=== PATIENT | female | born 1945 | race Caucasian/White ===

== ENCOUNTER 2018-12-30 13:33 | Emergency (ER) | payer OTHER ==
[~2018-12-30] VITALS: Ht 167.6 cm; Wt 72.6 kg
[2018-12-30] MEDS ORDERED: SODIUM CHLORIDE 0.9% 1,000 ML IV ONE (13:41)
[2018-12-30 14:36] LABS: Basophils # (auto) 0.1 uL; Basophils % (auto) 0.7 % (0.0-2.0); Eosinophils # (auto) 0 uL; Eosinophils % (auto) 0.3 % (0.0-7.0); Hematocrit 40.3 % (36.0-46.0); Hemoglobin 13.3 g/dL (12.2-16.2); Lymphocytes # (auto) 0.9 uL; Lymphocytes % (auto) 7.5 % (10.0-50.0); Mean Corpuscular Hemoglobin 27.3 pg (28.0-32.0); Mean Corpuscular Hgb Conc. 32.9 g/dL (32.0-36.0); Mean Corpuscular Volume 82.8 fL (80.0-100.0); Monocytes # (auto) 0.4 uL; Monocytes % (auto) 3.6 % (0.0-12.0); Neutrophils # (auto) 10.4 uL; Neutrophils % (auto) 87.9 % (37.0-80.0); Platelet Count (auto) 210 10^3/uL (140-450); Red Blood Cells 4.87 10^6/uL (4.0-5.20); White Blood Cell 11.8 10^3/uL (4.4-10.8)
[2018-12-30 14:38] LABS: Alanine Aminotransferase 32 U/L (13-56); Albumin 3.7 g/dL (3.4-5.0); Anion Gap 8 (5-15); Aspartate Aminotransferase 27 U/L (15-37); Blood Urea Nitrogen 12 mg/dL (7-18); Calcium 9.6 mg/dL (8.5-10.1); Carbon Dioxide 24 mmol/L (21-32); Chloride 106 mmol/L (98-107); GFR African American 83 mL/min; GFR Non-African American 69 mL/min; Glucose 130 mg/dL (74-106); Potassium 3.8 mmol/L (3.5-5.1); Sodium 138 mmol/L (136-145)
[2018-12-30 14:42] LABS: Partial Thromboplastin Time 23.7 sec (23.64-32.05)
[2018-12-30 14:43] LABS: Alkaline Phosphatase 96 U/L (45-117); Bilirubin, Total 0.4 mg/dL (0.2-1.0); Total Protein 7.1 g/dL (6.4-8.2)
[2018-12-30 15:59] LABS: Urine Amorphous Crystal FEW /hpf (None Seen); Urine Bacteria NONE SEEN /hpf (None Seen); Urine Blood Negative /uL (Negative); Urine Specific Gravity 1.008 (1.001-1.035); Urine WBC 1 /hpf (0 - 5)
[2018-12-30 18:00] VITALS: BP 139/75
== END 2018-12-30 18:08 | disposition home or self-care (01) ==
LOC: EDBD 13:33 → ER 13:38
DX: S52.592A Other fractures of lower end of left radius, initial encounter for closed fracture (principal); I10 Essential (primary) hypertension; R42 Dizziness and giddiness; W19.XXXA Unspecified fall, initial encounter; Y93.89 Activity, other specified; Y92.89 Other specified places as the place of occurrence of the external cause; Y99.8 Other external cause status
CPT/HCPCS: 29125; 36415; 70450; 71045; 72125; 72170; 73110; 80053; 81001; 82962; 84484; 85025; 85610; 85730; 96360; 99284; J7030

== ENCOUNTER 2021-01-28 06:07 | Inpatient (IN) | payer OTHER ==
[~2021-01-28] VITALS: Ht 160 cm; Wt 80.0 kg
[~2021-01-28 06:07] MED LIST: AMLO-483 PO; CHOL20007 OR; LEVO25TA6 PO; LOVA20TA4 PO; MULT-1018 OR
[2021-01-28] MEDS ORDERED: ceFAZolin 1GM/50ML 100 ML IV ONE (07:02)
[2021-01-28] MEDS ORDERED: ROCURONIUM 10MG/ML 10ML VIAL IV ONE (07:14)
[2021-01-28] MEDS ORDERED: FAMOTIDINE (10MG/ML) 2ML VL IV ONE (07:14)
[2021-01-28] MEDS ORDERED: SUCCINYLCHOLINE CHLORIDE 20 MG/ML 10ML VIAL IV ONE (07:14)
[2021-01-28] MEDS ORDERED: MIDAZOLAM HCL 2MG/2ML 2ml VIAL (1mg/ml) ONE (07:17)
[2021-01-28] MEDS ORDERED: fentaNYL CITRATE 100 MCG/2 ML VL ONE ×2 (07:17→09:55)
[2021-01-28] MEDS ORDERED: ONDANSETRON HCL 4 MG/2 ML VIAL ONE (07:17)
[2021-01-28] MEDS ORDERED: HYDROmorphone HCL 2 MG/ML VL ONE (07:17)
[2021-01-28] MEDS ORDERED: PROPOFOL 10 MG/ML 20 ML IV ONE (07:17)
[2021-01-28] MEDS ORDERED: LIDOCAINE 2% (LOCAL ANESTH.) PF 5ml SDV ONE (07:17)
[2021-01-28] MEDS ORDERED: GLYCOPYRROLATE 0.2 MG/ML 1ML VIAL ONE (07:17)
[2021-01-28] MEDS ORDERED: DexAMETHasone SOD PHOS 10MG/1ML VIAL INJ ONE (07:17)
[2021-01-28] MEDS ORDERED: KETOROLAC TROMETH 30 MG/ML 1ML VIAL ONE (07:17)
[2021-01-28] MEDS ORDERED: ePHEDrine SULFATE 50 MG/ML AMP ONE (07:18)
[2021-01-28] MEDS ORDERED: PHENYLEPHRINE HCL 10 MG/ML VL ONE (07:18)
[2021-01-28] MEDS ORDERED: METHYLENE BLUE 0.5% 5MG/ML 10ml AMP IV ONE (07:24)
[2021-01-28] MEDS ORDERED: LIDOCAINE 1%-Mpf/Epinephrine 1:200,000 ONE (07:24)
[2021-01-28] MEDS ORDERED: BUPIVACAINE 0.25% INJ 50ML VIAL ONE (07:24)
[2021-01-28] MEDS ORDERED: NITROGLYCERIN 0.4 MG SL TAB SL PRN (08:00)
[2021-01-28] MEDS ORDERED: ceFAZolin 1GM/50ML 50 ML IV ONE (08:00)
[2021-01-28] MEDS ORDERED: MORPHINE SULFATE INJECTION 2 MG/ML SYRG IV PRN (08:00)
[2021-01-28] MEDS ORDERED: GELATIN 1 SPONGE SIZE 100 TOP ONE (10:06)
[2021-01-28] MEDS ORDERED: ONDANSETRON HCL 4 MG/2 ML VIAL IV PRN (11:15)
[2021-01-28] MEDS ORDERED: HYDROmorphone HCL 2 MG/ML VL IV PRN (11:15)
[2021-01-28 20:00] VITALS: BP 129/65
[2021-01-28] MEDS: HYDROcodone-ACET 5/325MG TAB PO PRN (20:11)
[2021-01-28] MEDS: ONDANSETRON HCL 4 MG/2 ML VIAL IV PRN (22:35)
[2021-01-29] MEDS ORDERED: AMLO-489 PO (01:56)
[2021-01-29] MEDS ORDERED: LEVO100T8 PO (01:56)
[2021-01-29] MEDS ORDERED: HYDR-4902 PO (01:56)
[2021-01-29 05:00] VITALS: BP 135/72
[2021-01-29] MEDS: MORPHINE SULFATE 4 MG/ML SYR/VIAL IV PRN ×2 (05:28→08:50)
[2021-01-29] MEDS: ACETAMINOPHEN 500 MG TAB PO PRN (05:50)
[2021-01-29 05:57] LABS: Basophils # (auto) 0 10 ^3/uL (0-0.2); Basophils % (auto) 0.1 % (0.0-2.0); Eosinophils # (auto) 0 10 ^3/uL (0-0.8); Hematocrit 41.3 % (36.0-46.0); Hemoglobin 13.5 g/dL (12.2-16.2); Lymphocytes # (auto) 1.1 10 ^3/uL (0.4-5.4); Lymphocytes % (auto) 9.5 % (10.0-50.0); Mean Corpuscular Hemoglobin 28.5 pg (28.0-32.0); Mean Corpuscular Hgb Conc. 32.8 g/dL (32.0-36.0); Monocytes # (auto) 0.6 10 ^3/uL (0-1.3); Monocytes % (auto) 5.6 % (0.0-12.0); Neutrophils # (auto) 9.6 10 ^3/uL (1.6-8.6); Neutrophils % (auto) 84.8 % (37.0-80.0); Red Blood Cells 4.75 10^6/uL (4.0-5.20); Red Cell Distribution Width 15.1 % (11.8-14.3); White Blood Cell 11.4 10^3/uL (4.4-10.8)
[2021-01-29] MEDS: ONDANSETRON HCL 4 MG/2 ML VIAL IV PRN (08:50)
[2021-01-29] MEDS: SODIUM CHLORIDE 0.9% 1,000 ML IV SCH ×3 (08:52→16:00)
[2021-01-29 09:00] VITALS: BP 154/80
[2021-01-29 13:00] VITALS: BP 153/93
[2021-01-29 17:00] VITALS: BP 142/93
[2021-01-29 22:00] VITALS: BP 144/81
[2021-01-30] MEDS: MORPHINE SULFATE 4 MG/ML SYR/VIAL IV PRN ×3 (03:20→21:29)
[2021-01-30 05:00] VITALS: BP 146/84
[2021-01-30 09:00] VITALS: BP 129/86
[2021-01-30] MEDS ORDERED: LACTULOSE 20Gm/30ML SOLN PO ONE (12:45)
[2021-01-30 13:00] VITALS: BP 134/84
[2021-01-30] MEDS: SODIUM CHLORIDE 0.9% 1,000 ML IV SCH ×3 (13:50→22:45)
[2021-01-30] MEDS: ONDANSETRON HCL 4 MG/2 ML VIAL IV PRN ×2 (16:30→21:30)
[2021-01-30 17:00] VITALS: BP 141/95
[2021-01-30 22:00] VITALS: BP 139/96
[2021-01-30] MEDS: SIMETHICONE 80 MG CHEWABLE TABLET PO SCH (22:43)
[2021-01-30] MEDS: KETOROLAC TROMETH 30 MG/ML 1ML VIAL IV PRN (22:44)
[2021-01-30] MEDS: ENOXAPARIN SOD 100 MG/1 ML SYRINGE SC SCH (23:48)
[2021-01-31 05:00] VITALS: BP 127/88
[2021-01-31] MEDS: MORPHINE SULFATE 4 MG/ML SYR/VIAL IV PRN (05:12)
[2021-01-31] MEDS: ONDANSETRON HCL 4 MG/2 ML VIAL IV PRN (05:12)
[2021-01-31 05:33] LABS: Basophils # (auto) 0 10 ^3/uL (0-0.2); Basophils % (auto) 0.1 % (0.0-2.0); Eosinophils # (auto) 0 10 ^3/uL (0-0.8); Hematocrit 39.6 % (36.0-46.0); Hemoglobin 13.3 g/dL (12.2-16.2); Lymphocytes # (auto) 0.8 10 ^3/uL (0.4-5.4); Lymphocytes % (auto) 6.2 % (10.0-50.0); Mean Corpuscular Hemoglobin 28.8 pg (28.0-32.0); Mean Corpuscular Hgb Conc. 33.6 g/dL (32.0-36.0); Mean Corpuscular Volume 85.8 fL (80.0-100.0); Monocytes # (auto) 0.8 10 ^3/uL (0-1.3); Monocytes % (auto) 6.4 % (0.0-12.0); Neutrophils # (auto) 10.9 10 ^3/uL (1.6-8.6); Neutrophils % (auto) 87.3 % (37.0-80.0); Nucleated Red Blood Cells % 0.1 %; Red Blood Cells 4.62 10^6/uL (4.0-5.20); Red Cell Distribution Width 15.6 % (11.8-14.3); White Blood Cell 12.5 10^3/uL (4.4-10.8)
[2021-01-31] MEDS: SIMETHICONE 80 MG CHEWABLE TABLET PO SCH ×3 (05:39→20:48)
[2021-01-31 06:01] LABS: Potassium 4.4 mmol/L (3.5-5.1)
[2021-01-31 06:08] LABS: BUN/Creatinine Ratio 24.9; Calcium 9.5 mg/dL (8.5-10.1)
[2021-01-31 09:00] VITALS: BP 141/87
[2021-01-31] MEDS: KETOROLAC TROMETH 30 MG/ML 1ML VIAL IV PRN (10:30)
[2021-01-31] MEDS: ENOXAPARIN SOD 100 MG/1 ML SYRINGE SC SCH ×2 (11:19→20:48)
[2021-01-31] MEDS: SODIUM CHLORIDE 0.9% 1,000 ML IV SCH ×2 (11:19→16:17)
[2021-01-31] MEDS ORDERED: PANTOPRAZOLE 40 MG/10 ML VIAL INJ IV ONE (12:00)
[2021-01-31 13:00] VITALS: BP 137/92
[2021-01-31] MEDS: METOCLOPRAMIDE HCL 5MG/ml INJ 2ml VIAL IV SCH ×4 (13:44→23:29)
[2021-01-31] MEDS: BETHANECHOL CHLORIDE 25 MG TAB PO SCH ×3 (16:17→23:20)
[2021-01-31 17:00] VITALS: BP 142/82
[2021-01-31] MEDS: TAMSULOSIN HYDROCHLORIDE 0.4 MG CAP PO SCH (19:01)
[2021-01-31 22:00] VITALS: BP 137/82
[2021-02-01 05:00] VITALS: BP 141/79
[2021-02-01] MEDS: BETHANECHOL CHLORIDE 25 MG TAB PO SCH ×4 (05:43→23:51)
[2021-02-01] MEDS: SIMETHICONE 80 MG CHEWABLE TABLET PO SCH ×3 (05:43→21:39)
[2021-02-01] MEDS: METOCLOPRAMIDE HCL 5MG/ml INJ 2ml VIAL IV SCH ×4 (05:43→23:51)
[2021-02-01 05:56] LABS: Basophils # (auto) 0 10 ^3/uL (0-0.2); Basophils % (auto) 0.1 % (0.0-2.0); Eosinophils # (auto) 0 10 ^3/uL (0-0.8); Hematocrit 35.2 % (36.0-46.0); Hemoglobin 11.9 g/dL (12.2-16.2); Lymphocytes # (auto) 0.5 10 ^3/uL (0.4-5.4); Lymphocytes % (auto) 5.8 % (10.0-50.0); Mean Corpuscular Hgb Conc. 33.9 g/dL (32.0-36.0); Mean Corpuscular Volume 85.5 fL (80.0-100.0); Monocytes # (auto) 0.7 10 ^3/uL (0-1.3); Monocytes % (auto) 8.9 % (0.0-12.0); Neutrophils % (auto) 85.2 % (37.0-80.0); Nucleated Red Blood Cells % 0.1 %; Red Blood Cells 4.11 10^6/uL (4.0-5.20); Red Cell Distribution Width 15.8 % (11.8-14.3); White Blood Cell 8.3 10^3/uL (4.4-10.8)
[2021-02-01 06:47] LABS: Calcium 8.5 mg/dL (8.5-10.1); Potassium 3.9 mmol/L (3.5-5.1)
[2021-02-01 08:44] VITALS: BP 142/76
[2021-02-01] MEDS ORDERED: IOHEXOL 300 MG/ML 100ML BOTTLE IJ ONE (09:07)
[2021-02-01] MEDS: cefTRIAXone 1GM/50ML D5W 50 ML IV SCH (10:38)
[2021-02-01] MEDS: PANTOPRAZOLE 40 MG/10 ML VIAL INJ IV SCH (10:38)
[2021-02-01] MEDS: ENOXAPARIN SOD 100 MG/1 ML SYRINGE SC SCH ×2 (10:39→21:39)
[2021-02-01] MEDS: SODIUM CHLORIDE 0.9% 1,000 ML IV SCH ×3 (10:44→18:19)
[2021-02-01 13:00] VITALS: BP 142/142
[2021-02-01] MEDS ORDERED: LIDOCAINE 2%HCL (LOCAL ANESTH.) INJ 20ML MDV ONE ×2 (14:07→16:15)
[2021-02-01] MEDS ORDERED: IOHEXOL 350 MG/ML 100ML IJ ONE (14:07)
[2021-02-01] MEDS: KETOROLAC TROMETH 30 MG/ML 1ML VIAL IV PRN (15:05)
[2021-02-01 16:20] LABS: INR 0.99 (0.9-1.15); Partial Thromboplastin Time 29.6 sec (23.6-33.0)
[2021-02-01] MEDS ORDERED: fentaNYL CITRATE 100 MCG/2 ML VL ONE (16:32)
[2021-02-01] MEDS ORDERED: MIDAZOLAM HCL 2MG/2ML 2ml VIAL (1mg/ml) ONE (16:32)
[2021-02-01] MEDS ORDERED: diphenhdrAMINE HCL 50 MG/1 ML VL ONE (16:45)
[2021-02-01] MEDS: TAMSULOSIN HYDROCHLORIDE 0.4 MG CAP PO SCH (18:20)
[2021-02-01 22:00] VITALS: BP 134/77
[2021-02-02 05:00] VITALS: BP 144/85
[2021-02-02 05:21] LABS: Basophils # (auto) 0 10 ^3/uL (0-0.2); Basophils % (auto) 0.1 % (0.0-2.0); Eosinophils # (auto) 0 10 ^3/uL (0-0.8); Eosinophils % (auto) 0.1 % (0.0-7.0); Hematocrit 33.6 % (36.0-46.0); Hemoglobin 11.3 g/dL (12.2-16.2); Lymphocytes # (auto) 0.6 10 ^3/uL (0.4-5.4); Lymphocytes % (auto) 9.4 % (10.0-50.0); Mean Corpuscular Hemoglobin 28.8 pg (28.0-32.0); Mean Corpuscular Hgb Conc. 33.6 g/dL (32.0-36.0); Mean Corpuscular Volume 85.8 fL (80.0-100.0); Monocytes # (auto) 0.6 10 ^3/uL (0-1.3); Monocytes % (auto) 9.7 % (0.0-12.0); Neutrophils # (auto) 4.8 10 ^3/uL (1.6-8.6); Neutrophils % (auto) 80.7 % (37.0-80.0); Nucleated Red Blood Cells % 0.1 %; Red Blood Cells 3.92 10^6/uL (4.0-5.20); Red Cell Distribution Width 15.7 % (11.8-14.3); White Blood Cell 5.9 10^3/uL (4.4-10.8)
[2021-02-02] MEDS: METOCLOPRAMIDE HCL 5MG/ml INJ 2ml VIAL IV SCH ×3 (05:28→18:02)
[2021-02-02] MEDS: BETHANECHOL CHLORIDE 25 MG TAB PO SCH ×3 (05:29→18:00)
[2021-02-02] MEDS: KETOROLAC TROMETH 30 MG/ML 1ML VIAL IV PRN (05:29)
[2021-02-02] MEDS: SIMETHICONE 80 MG CHEWABLE TABLET PO SCH ×3 (05:29→21:29)
[2021-02-02 05:37] LABS: Calcium 8.6 mg/dL (8.5-10.1); Potassium 3.3 mmol/L (3.5-5.1)
[2021-02-02 05:40] LABS: BUN/Creatinine Ratio 37.1
[2021-02-02] MEDS: SODIUM CHLORIDE 0.9% 1,000 ML IV SCH ×2 (05:41→08:00)
[2021-02-02 08:59] VITALS: BP 141/81
[2021-02-02] MEDS: PANTOPRAZOLE 40 MG/10 ML VIAL INJ IV SCH (09:28)
[2021-02-02] MEDS: ENOXAPARIN SOD 100 MG/1 ML SYRINGE SC SCH ×2 (09:28→21:29)
[2021-02-02] MEDS: cefTRIAXone 1GM/50ML D5W 50 ML IV SCH (09:28)
[2021-02-02 12:39] VITALS: BP 156/84
[2021-02-02] MEDS: D5W/SOD CHL 0.45%/KCL 20MEQ 1,000 ML IV SCH (15:20)
[2021-02-02 16:33] VITALS: BP 147/71
[2021-02-02] MEDS: TAMSULOSIN HYDROCHLORIDE 0.4 MG CAP PO SCH (18:02)
[2021-02-02] MEDS: MORPHINE SULFATE 4 MG/ML SYR/VIAL IV PRN (21:30)
[2021-02-02] MEDS: ONDANSETRON HCL 4 MG/2 ML VIAL IV PRN (21:30)
[2021-02-02 22:00] VITALS: BP 158/67
[2021-02-03] MEDS: METOCLOPRAMIDE HCL 5MG/ml INJ 2ml VIAL IV SCH ×4 (00:04→17:58)
[2021-02-03] MEDS: BETHANECHOL CHLORIDE 25 MG TAB PO SCH ×3 (00:04→22:50)
[2021-02-03 05:00] VITALS: BP 147/77
[2021-02-03] MEDS: SIMETHICONE 80 MG CHEWABLE TABLET PO SCH ×3 (05:47→22:49)
[2021-02-03] MEDS: KETOROLAC TROMETH 30 MG/ML 1ML VIAL IV PRN (05:47)
[2021-02-03 05:52] LABS: Basophils # (auto) 0 10 ^3/uL (0-0.2); Basophils % (auto) 0.2 % (0.0-2.0); Eosinophils # (auto) 0 10 ^3/uL (0-0.8); Eosinophils % (auto) 0.2 % (0.0-7.0); Hematocrit 33.4 % (36.0-46.0); Hemoglobin 11.1 g/dL (12.2-16.2); Lymphocytes # (auto) 0.6 10 ^3/uL (0.4-5.4); Lymphocytes % (auto) 5.2 % (10.0-50.0); Mean Corpuscular Hemoglobin 28.3 pg (28.0-32.0); Mean Corpuscular Hgb Conc. 33.3 g/dL (32.0-36.0); Mean Corpuscular Volume 85.1 fL (80.0-100.0); Monocytes # (auto) 1.1 10 ^3/uL (0-1.3); Monocytes % (auto) 9.8 % (0.0-12.0); Neutrophils # (auto) 9.5 10 ^3/uL (1.6-8.6); Neutrophils % (auto) 84.6 % (37.0-80.0); Red Blood Cells 3.92 10^6/uL (4.0-5.20); Red Cell Distribution Width 15.8 % (11.8-14.3); White Blood Cell 11.3 10^3/uL (4.4-10.8)
[2021-02-03] MEDS: D5W/SOD CHL 0.45%/KCL 20MEQ 1,000 ML IV SCH ×2 (06:06→17:10)
[2021-02-03 06:16] LABS: Calcium 8.7 mg/dL (8.5-10.1)
[2021-02-03 06:17] LABS: INR 1.04 (0.9-1.15); Partial Thromboplastin Time 28.3 sec (23.6-33.0)
[2021-02-03 06:19] LABS: BUN/Creatinine Ratio 24.6
[2021-02-03 09:00] VITALS: BP 129/76
[2021-02-03] MEDS: PANTOPRAZOLE 40 MG/10 ML VIAL INJ IV SCH (09:08)
[2021-02-03] MEDS: cefTRIAXone 1GM/50ML D5W 50 ML IV SCH (09:08)
[2021-02-03] MEDS ORDERED: BISACODYL 10 MG RECT SUPP PR ONE (10:00)
[2021-02-03] MEDS: ENOXAPARIN SOD 100 MG/1 ML SYRINGE SC SCH ×2 (10:00→22:00)
[2021-02-03] MEDS ORDERED: POTASSIUM CHLORIDE 40 MEQ, LIDOCAINE 1% (LOCAL ANESTH.) 4 ML in SODIUM CHL 0.9% 250 ML IV ONE (10:15)
[2021-02-03] MEDS: MAGNESIUM SULFATE 1GM/100ML 100 ML IV SCH ×2 (12:25→14:54)
[2021-02-03 12:56] VITALS: BP 148/94
[2021-02-03 17:00] VITALS: BP 147/75
[2021-02-03] MEDS: TAMSULOSIN HYDROCHLORIDE 0.4 MG CAP PO SCH (17:58)
[2021-02-03 18:44] LABS: Hematocrit 36.5 % (36.0-46.0); Hemoglobin 11.4 g/dL (12.2-16.2)
[2021-02-03] MEDS: LACTULOSE 20Gm/30ML SOLN PO PRN (20:39)
[2021-02-03 22:00] VITALS: BP 146/68
[2021-02-04] MEDS: METOCLOPRAMIDE HCL 5MG/ml INJ 2ml VIAL IV SCH ×3 (00:16→12:00)
[2021-02-04] MEDS: D5W/SOD CHL 0.45%/KCL 20MEQ 1,000 ML IV SCH (03:48)
[2021-02-04 05:00] VITALS: BP 136/75
[2021-02-04 05:38] LABS: Hematocrit 33.4 % (36.0-46.0)
[2021-02-04] MEDS: SIMETHICONE 80 MG CHEWABLE TABLET PO SCH ×3 (06:00→22:48)
[2021-02-04 06:03] LABS: Calcium 8.7 mg/dL (8.5-10.1); Magnesium 2.6 mg/dL (1.6-2.6); Potassium 3.1 mmol/L (3.5-5.1)
[2021-02-04 06:06] LABS: BUN/Creatinine Ratio 21.5
[2021-02-04] MEDS: LACTULOSE 20Gm/30ML SOLN PO PRN (07:01)
[2021-02-04 08:30] VITALS: BP 153/76
[2021-02-04] MEDS ORDERED: FUROSEMIDE 20 MG/2 ML VIAL IV ONE (10:15)
[2021-02-04] MEDS: cefTRIAXone 1GM/50ML D5W 50 ML IV SCH (10:33)
[2021-02-04] MEDS: PANTOPRAZOLE 40 MG/10 ML VIAL INJ IV SCH (10:34)
[2021-02-04] MEDS: BETHANECHOL CHLORIDE 25 MG TAB PO SCH (10:35)
[2021-02-04] MEDS: ENOXAPARIN SOD 100 MG/1 ML SYRINGE SC SCH (10:36)
[2021-02-04] MEDS ORDERED: IOHEXOL 350 MG/ML 100ML IJ ONE (11:13)
[2021-02-04] MEDS: POTASSIUM CHL 20MEQ/100ML 100 ML IV SCH ×2 (12:00→12:15)
[2021-02-04 12:30] VITALS: BP 146/70
[2021-02-04 17:00] VITALS: BP 144/70
[2021-02-04] MEDS: ALBUTEROL SULF 2.5 MG/0.5ML(0.5%) NEB SOLN NEB SCH (19:00)
[2021-02-04] MEDS: IPRATROPIUM BROM 0.5 MG/2.5ML INH SOL NEB SCH (19:00)
[2021-02-04 22:00] VITALS: BP 143/75
[2021-02-04] MEDS: ENOXAPARIN SOD 80 MG/0.8ML SYRINGE SC SCH (22:48)
[2021-02-05] MEDS: ACETAMINOPHEN 500 MG TAB PO PRN (03:53)
[2021-02-05 05:21] LABS: Basophils # (auto) 0 10 ^3/uL (0-0.2); Eosinophils # (auto) 0 10 ^3/uL (0-0.8); Hemoglobin 9.8 g/dL (12.2-16.2); Lymphocytes # (auto) 0.6 10 ^3/uL (0.4-5.4); Mean Corpuscular Hemoglobin 28.3 pg (28.0-32.0); Mean Corpuscular Hgb Conc. 33.7 g/dL (32.0-36.0); Monocytes # (auto) 0.4 10 ^3/uL (0-1.3); Monocytes % (auto) 1.9 % (0.0-12.0); Neutrophils # (auto) 18.9 10 ^3/uL (1.6-8.6); Neutrophils % (auto) 95.1 % (37.0-80.0); Nucleated Red Blood Cells % 0.1 %; Red Blood Cells 3.46 10^6/uL (4.0-5.20); Red Cell Distribution Width 16.1 % (11.8-14.3); White Blood Cell 19.9 10^3/uL (4.4-10.8)
[2021-02-05 05:26] VITALS: BP 113/61
[2021-02-05 05:39] LABS: BUN/Creatinine Ratio 19.7; Calcium 8.4 mg/dL (8.5-10.1)
[2021-02-05] MEDS: ALBUTEROL SULF 2.5 MG/0.5ML(0.5%) NEB SOLN NEB SCH ×4 (06:00→19:16)
[2021-02-05] MEDS: IPRATROPIUM BROM 0.5 MG/2.5ML INH SOL NEB SCH ×4 (06:00→19:16)
[2021-02-05] MEDS ORDERED: IPRATROPIUM BROM 0.5 MG/2.5ML INH SOL ONE (06:03)
[2021-02-05] MEDS ORDERED: ALBUTEROL SULF 2.5 MG/0.5ML(0.5%) NEB SOLN ONE (06:03)
[2021-02-05] MEDS: LEVOTHYROXINE SODIUM 100 MCG TAB PO SCH (06:08)
[2021-02-05] MEDS: SIMETHICONE 80 MG CHEWABLE TABLET PO SCH ×2 (06:08→14:07)
[2021-02-05 08:00] VITALS: BP 131/74
[2021-02-05] MEDS ORDERED: POTASSIUM CHL 20 Meq TABLET PO ONE (09:30)
[2021-02-05] MEDS: cefTRIAXone 1GM/50ML D5W 50 ML IV SCH (09:38)
[2021-02-05] MEDS: ENOXAPARIN SOD 80 MG/0.8ML SYRINGE SC SCH ×2 (09:38→21:28)
[2021-02-05] MEDS: PANTOPRAZOLE 40 MG TAB PO SCH (09:40)
[2021-02-05 12:00] VITALS: BP 118/73
[2021-02-05 17:26] VITALS: BP 126/69
[2021-02-05 22:00] VITALS: BP 139/76
[2021-02-05] MEDS: PIPERACILLIN-TAZOB 3.375GM 100 ML IV SCH (23:49)
[2021-02-06 05:00] VITALS: BP 110/60
[2021-02-06] MEDS: ACETAMINOPHEN 500 MG TAB PO PRN (05:01)
[2021-02-06] MEDS ORDERED: IPRATROPIUM BROM 0.5 MG/2.5ML INH SOL ONE ×2 (05:41→18:13)
[2021-02-06] MEDS ORDERED: ALBUTEROL SULF 2.5 MG/0.5ML(0.5%) NEB SOLN ONE ×2 (05:41→18:13)
[2021-02-06] MEDS: LEVOTHYROXINE SODIUM 100 MCG TAB PO SCH (05:50)
[2021-02-06] MEDS: PIPERACILLIN-TAZOB 3.375GM 100 ML IV SCH ×3 (05:50→18:55)
[2021-02-06 06:00] LABS: Basophils # (auto) 0 10 ^3/uL (0-0.2); Basophils % (auto) 0.1 % (0.0-2.0); Eosinophils # (auto) 0 10 ^3/uL (0-0.8); Hematocrit 29.9 % (36.0-46.0); Hemoglobin 9.9 g/dL (12.2-16.2); Lymphocytes # (auto) 0.5 10 ^3/uL (0.4-5.4); Lymphocytes % (auto) 3.9 % (10.0-50.0); Mean Corpuscular Hgb Conc. 33.2 g/dL (32.0-36.0); Mean Corpuscular Volume 84.4 fL (80.0-100.0); Monocytes # (auto) 0.2 10 ^3/uL (0-1.3); Monocytes % (auto) 1.8 % (0.0-12.0); Neutrophils # (auto) 13.1 10 ^3/uL (1.6-8.6); Neutrophils % (auto) 94.2 % (37.0-80.0); Red Blood Cells 3.55 10^6/uL (4.0-5.20); Red Cell Distribution Width 16.6 % (11.8-14.3); White Blood Cell 13.9 10^3/uL (4.4-10.8)
[2021-02-06] MEDS: IPRATROPIUM BROM 0.5 MG/2.5ML INH SOL NEB SCH ×3 (06:09→18:16)
[2021-02-06] MEDS: ALBUTEROL SULF 2.5 MG/0.5ML(0.5%) NEB SOLN NEB SCH ×3 (06:09→18:16)
[2021-02-06 06:10] LABS: Albumin 1.7 g/dL (3.4-5.0); Calcium 8.3 mg/dL (8.5-10.1); Potassium 3.2 mmol/L (3.5-5.1)
[2021-02-06 06:16] LABS: BUN/Creatinine Ratio 18.6; Bilirubin, Total 0.8 mg/dL (0.2-1.0); Total Protein 5.9 g/dL (6.4-8.2)
[2021-02-06 06:20] LABS: INR 1.13 (0.9-1.15); Partial Thromboplastin Time 28.7 sec (23.6-33.0)
[2021-02-06] MEDS: ENOXAPARIN SOD 60 MG/0.6 ML SYRINGE SC SCH ×2 (08:51→21:09)
[2021-02-06] MEDS: PANTOPRAZOLE 40 MG TAB PO SCH (08:53)
[2021-02-06 09:00] VITALS: BP 110/64
[2021-02-06] MEDS ORDERED: OMNIPAQUE ORAL SOLN 500ml 12mg/ml PO ONE (09:29)
[2021-02-06] MEDS ORDERED: POTASSIUM CHL 20MEQ/100ML 100 ML IV ONE (10:30)
[2021-02-06] MEDS ORDERED: POTASSIUM CHL 20 Meq TABLET PO ONE (10:30)
[2021-02-06] MEDS ORDERED: IOHEXOL 300 MG/ML 100ML BOTTLE IJ ONE (12:33)
[2021-02-06 13:00] VITALS: BP 133/77
[2021-02-06 16:36] VITALS: BP 143/77
[2021-02-07] MEDS: PIPERACILLIN-TAZOB 3.375GM 100 ML IV SCH ×4 (00:10→18:22)
[2021-02-07] MEDS: MORPHINE SULFATE 4 MG/ML SYR/VIAL IV PRN (04:42)
[2021-02-07 05:00] VITALS: BP 143/87
[2021-02-07] MEDS: LEVOTHYROXINE SODIUM 100 MCG TAB PO SCH (05:30)
[2021-02-07 05:56] LABS: Basophils # (auto) 0 10 ^3/uL (0-0.2); Basophils % (auto) 0.1 % (0.0-2.0); Eosinophils # (auto) 0 10 ^3/uL (0-0.8); Eosinophils % (auto) 0.1 % (0.0-7.0); Hematocrit 29.1 % (36.0-46.0); Hemoglobin 9.9 g/dL (12.2-16.2); Lymphocytes # (auto) 0.4 10 ^3/uL (0.4-5.4); Lymphocytes % (auto) 3.4 % (10.0-50.0); Mean Corpuscular Hemoglobin 28.1 pg (28.0-32.0); Mean Corpuscular Hgb Conc. 33.9 g/dL (32.0-36.0); Mean Corpuscular Volume 82.9 fL (80.0-100.0); Monocytes # (auto) 0.2 10 ^3/uL (0-1.3); Monocytes % (auto) 1.5 % (0.0-12.0); Neutrophils # (auto) 11.4 10 ^3/uL (1.6-8.6); Neutrophils % (auto) 94.9 % (37.0-80.0); Red Blood Cells 3.51 10^6/uL (4.0-5.20); Red Cell Distribution Width 16.5 % (11.8-14.3)
[2021-02-07 06:28] LABS: Calcium 8.3 mg/dL (8.5-10.1); Potassium 3.3 mmol/L (3.5-5.1)
[2021-02-07 06:30] LABS: BUN/Creatinine Ratio 17.5
[2021-02-07] MEDS: IPRATROPIUM BROM 0.5 MG/2.5ML INH SOL NEB SCH ×3 (07:45→19:15)
[2021-02-07] MEDS: ALBUTEROL SULF 2.5 MG/0.5ML(0.5%) NEB SOLN NEB SCH ×3 (07:45→19:15)
[2021-02-07] MEDS ORDERED: LIDOCAINE 2%HCL (LOCAL ANESTH.) INJ 20ML MDV ONE ×2 (08:49→10:22)
[2021-02-07] MEDS: ENOXAPARIN SOD 60 MG/0.6 ML SYRINGE SC SCH ×2 (08:57→21:14)
[2021-02-07] MEDS: PANTOPRAZOLE 40 MG TAB PO SCH (08:59)
[2021-02-07 09:00] VITALS: BP 122/76
[2021-02-07] MEDS ORDERED: fentaNYL CITRATE 100 MCG/2 ML VL ONE (09:45)
[2021-02-07] MEDS ORDERED: MIDAZOLAM HCL 2MG/2ML 2ml VIAL (1mg/ml) ONE (09:45)
[2021-02-07 13:00] VITALS: BP 124/75
[2021-02-07] MEDS ORDERED: POTASSIUM CHL 20MEQ/100ML 100 ML IV SCH (14:00)
[2021-02-07 16:41] VITALS: BP 143/72
[2021-02-07] MEDS ORDERED: ALBUTEROL SULF 2.5 MG/0.5ML(0.5%) NEB SOLN ONE (18:31)
[2021-02-07] MEDS ORDERED: IPRATROPIUM BROM 0.5 MG/2.5ML INH SOL ONE (18:31)
[2021-02-07] MEDS: POTASSIUM CHL 20MEQ/100ML 100 ML IV SCH ×2 (20:01→22:48)
[2021-02-07 22:00] VITALS: BP 133/69
[2021-02-08 05:11] VITALS: BP 136/70
[2021-02-08 05:35] LABS: Basophils # (auto) 0 10 ^3/uL (0-0.2); Eosinophils # (auto) 0 10 ^3/uL (0-0.8); Eosinophils % (auto) 0.1 % (0.0-7.0); Hematocrit 29.8 % (36.0-46.0); Lymphocytes # (auto) 0.4 10 ^3/uL (0.4-5.4); Lymphocytes % (auto) 4.3 % (10.0-50.0); Mean Corpuscular Hgb Conc. 33.4 g/dL (32.0-36.0); Mean Corpuscular Volume 83.8 fL (80.0-100.0); Monocytes # (auto) 0.2 10 ^3/uL (0-1.3); Monocytes % (auto) 2.7 % (0.0-12.0); Neutrophils # (auto) 8.2 10 ^3/uL (1.6-8.6); Neutrophils % (auto) 92.9 % (37.0-80.0); Red Blood Cells 3.56 10^6/uL (4.0-5.20); Red Cell Distribution Width 16.7 % (11.8-14.3); White Blood Cell 8.9 10^3/uL (4.4-10.8)
[2021-02-08] MEDS: ALBUTEROL SULF 2.5 MG/0.5ML(0.5%) NEB SOLN ONE ×2 (05:58→06:24)
[2021-02-08] MEDS: IPRATROPIUM BROM 0.5 MG/2.5ML INH SOL ONE ×2 (05:58→06:23)
[2021-02-08] MEDS: PIPERACILLIN-TAZOB 3.375GM 100 ML IV SCH ×4 (06:13→17:56)
[2021-02-08] MEDS: LEVOTHYROXINE SODIUM 100 MCG TAB PO SCH (06:23)
[2021-02-08 06:28] LABS: Calcium 8.7 mg/dL (8.5-10.1); Potassium 3.6 mmol/L (3.5-5.1)
[2021-02-08] MEDS: ALBUTEROL SULF 2.5 MG/0.5ML(0.5%) NEB SOLN NEB SCH ×3 (06:29→18:45)
[2021-02-08] MEDS: IPRATROPIUM BROM 0.5 MG/2.5ML INH SOL NEB SCH ×3 (06:29→18:45)
[2021-02-08 09:00] VITALS: BP 137/80
[2021-02-08 10:02] VITALS: BP 136/70
[2021-02-08] MEDS: ENOXAPARIN SOD 60 MG/0.6 ML SYRINGE SC SCH ×2 (10:06→22:00)
[2021-02-08] MEDS: PANTOPRAZOLE 40 MG TAB PO SCH (10:06)
[2021-02-08] MEDS: NYSTATIN TOPICAL POWDER 15GM TOP SCH ×2 (10:07→22:00)
[2021-02-08 13:00] VITALS: BP 133/77
[2021-02-08 17:00] VITALS: BP 137/73
[2021-02-08] MEDS ORDERED: IPRATROPIUM BROM 0.5 MG/2.5ML INH SOL ONE (18:30)
[2021-02-08] MEDS ORDERED: ALBUTEROL SULF 2.5 MG/0.5ML(0.5%) NEB SOLN ONE (18:30)
[2021-02-08 22:00] VITALS: BP 132/68
[2021-02-09] MEDS: PIPERACILLIN-TAZOB 3.375GM 100 ML IV SCH ×4 (00:36→18:31)
[2021-02-09 05:00] VITALS: BP 145/74
[2021-02-09 05:39] LABS: Basophils # (auto) 0 10 ^3/uL (0-0.2); Basophils % (auto) 0.5 % (0.0-2.0); Eosinophils # (auto) 0 10 ^3/uL (0-0.8); Eosinophils % (auto) 0.1 % (0.0-7.0); Hematocrit 29.2 % (36.0-46.0); Hemoglobin 9.9 g/dL (12.2-16.2); Lymphocytes # (auto) 0.5 10 ^3/uL (0.4-5.4); Lymphocytes % (auto) 5.6 % (10.0-50.0); Mean Corpuscular Hemoglobin 28.2 pg (28.0-32.0); Mean Corpuscular Hgb Conc. 33.9 g/dL (32.0-36.0); Mean Corpuscular Volume 83.1 fL (80.0-100.0); Monocytes # (auto) 0.4 10 ^3/uL (0-1.3); Monocytes % (auto) 4.2 % (0.0-12.0); Neutrophils # (auto) 7.5 10 ^3/uL (1.6-8.6); Neutrophils % (auto) 89.6 % (37.0-80.0); Red Blood Cells 3.51 10^6/uL (4.0-5.20); Red Cell Distribution Width 16.7 % (11.8-14.3); White Blood Cell 8.4 10^3/uL (4.4-10.8)
[2021-02-09] MEDS: LEVOTHYROXINE SODIUM 100 MCG TAB PO SCH (05:57)
[2021-02-09 06:02] LABS: Potassium 3.2 mmol/L (3.5-5.1)
[2021-02-09 06:11] LABS: Calcium 8.2 mg/dL (8.5-10.1)
[2021-02-09] MEDS: ALBUTEROL SULF 2.5 MG/0.5ML(0.5%) NEB SOLN NEB SCH ×3 (07:55→18:56)
[2021-02-09] MEDS: IPRATROPIUM BROM 0.5 MG/2.5ML INH SOL NEB SCH ×3 (07:55→18:56)
[2021-02-09 09:00] VITALS: BP 121/63
[2021-02-09] MEDS: ENOXAPARIN SOD 60 MG/0.6 ML SYRINGE SC SCH ×2 (09:50→22:58)
[2021-02-09] MEDS: NYSTATIN TOPICAL POWDER 15GM TOP SCH ×3 (09:50→22:59)
[2021-02-09] MEDS: POTASSIUM CHL 20 Meq TABLET PO SCH ×2 (09:51→22:58)
[2021-02-09] MEDS: PANTOPRAZOLE 40 MG TAB PO SCH (09:51)
[2021-02-09 12:04] VITALS: BP 129/74
[2021-02-09] MEDS ORDERED: POTASSIUM CHLORIDE 40 MEQ, LIDOCAINE 1% (LOCAL ANESTH.) 4 ML in SODIUM CHL 0.9% 250 ML IV ONE (14:30)
[2021-02-09 17:13] VITALS: BP 148/96
[2021-02-09] MEDS ORDERED: ALBUTEROL SULF 2.5 MG/0.5ML(0.5%) NEB SOLN ONE (18:40)
[2021-02-09] MEDS ORDERED: IPRATROPIUM BROM 0.5 MG/2.5ML INH SOL ONE (18:40)
[2021-02-09 22:00] VITALS: BP 111/72
[2021-02-10] MEDS: PIPERACILLIN-TAZOB 3.375GM 100 ML IV SCH ×4 (00:25→18:00)
[2021-02-10 05:00] VITALS: BP 151/81
[2021-02-10] MEDS ORDERED: ALBUTEROL SULF 2.5 MG/0.5ML(0.5%) NEB SOLN ONE ×3 (05:13→18:03)
[2021-02-10] MEDS: IPRATROPIUM BROM 0.5 MG/2.5ML INH SOL NEB SCH ×3 (05:17→18:14)
[2021-02-10] MEDS: ALBUTEROL SULF 2.5 MG/0.5ML(0.5%) NEB SOLN NEB SCH ×3 (05:17→18:15)
[2021-02-10] MEDS: LEVOTHYROXINE SODIUM 100 MCG TAB PO SCH (06:34)
[2021-02-10 07:09] LABS: Potassium 3.2 mmol/L (3.5-5.1)
[2021-02-10 07:19] LABS: BUN/Creatinine Ratio 11.5; Calcium 8.6 mg/dL (8.5-10.1)
[2021-02-10 07:21] LABS: Basophils # (auto) 0 10 ^3/uL (0-0.2); Basophils % (auto) 0.4 % (0.0-2.0); Eosinophils # (auto) 0 10 ^3/uL (0-0.8); Hematocrit 33.3 % (36.0-46.0); Hemoglobin 10.8 g/dL (12.2-16.2); Lymphocytes # (auto) 0.7 10 ^3/uL (0.4-5.4); Mean Corpuscular Hemoglobin 27.3 pg (28.0-32.0); Mean Corpuscular Hgb Conc. 32.4 g/dL (32.0-36.0); Mean Corpuscular Volume 84.1 fL (80.0-100.0); Monocytes # (auto) 0.3 10 ^3/uL (0-1.3); Monocytes % (auto) 3.4 % (0.0-12.0); Neutrophils # (auto) 7.5 10 ^3/uL (1.6-8.6); Neutrophils % (auto) 88.2 % (37.0-80.0); Nucleated Red Blood Cells % 0.2 %; Red Blood Cells 3.95 10^6/uL (4.0-5.20); Red Cell Distribution Width 16.6 % (11.8-14.3); White Blood Cell 8.5 10^3/uL (4.4-10.8)
[2021-02-10 09:00] VITALS: BP 145/88
[2021-02-10] MEDS: PANTOPRAZOLE 40 MG TAB PO SCH (10:54)
[2021-02-10] MEDS: ENOXAPARIN SOD 60 MG/0.6 ML SYRINGE SC SCH ×2 (10:54→23:00)
[2021-02-10] MEDS ORDERED: IPRATROPIUM BROM 0.5 MG/2.5ML INH SOL ONE ×2 (11:12→18:03)
[2021-02-10] MEDS: ACETAMINOPHEN 500 MG TAB PO PRN (11:33)
[2021-02-10] MEDS ORDERED: POTASSIUM CHLORIDE 40 MEQ, LIDOCAINE 1% (LOCAL ANESTH.) 4 ML in SODIUM CHL 0.9% 250 ML IV ONE (12:30)
[2021-02-10 13:00] VITALS: BP 135/68
[2021-02-10 17:00] VITALS: BP 123/70
[2021-02-10 22:00] VITALS: BP 137/86
[2021-02-10] MEDS: POTASSIUM CHL 20 Meq TABLET PO SCH (23:00)
[2021-02-10] MEDS: NYSTATIN TOPICAL POWDER 15GM TOP SCH (23:01)
[2021-02-11] MEDS: PIPERACILLIN-TAZOB 3.375GM 100 ML IV SCH ×5 (00:30→23:57)
[2021-02-11 05:00] VITALS: BP 139/76
[2021-02-11] MEDS ORDERED: IPRATROPIUM BROM 0.5 MG/2.5ML INH SOL ONE (05:36)
[2021-02-11] MEDS ORDERED: ALBUTEROL SULF 2.5 MG/0.5ML(0.5%) NEB SOLN ONE (05:37)
[2021-02-11 05:41] LABS: BUN/Creatinine Ratio 10.8; Calcium 8.2 mg/dL (8.5-10.1); Magnesium 2.2 mg/dL (1.6-2.6); Potassium 3.6 mmol/L (3.5-5.1)
[2021-02-11] MEDS: ALBUTEROL SULF 2.5 MG/0.5ML(0.5%) NEB SOLN NEB SCH ×3 (05:50→19:37)
[2021-02-11] MEDS: IPRATROPIUM BROM 0.5 MG/2.5ML INH SOL NEB SCH ×3 (05:50→19:37)
[2021-02-11] MEDS: LEVOTHYROXINE SODIUM 100 MCG TAB PO SCH (06:55)
[2021-02-11 07:07] LABS: Basophils # (auto) 0 10 ^3/uL (0-0.2); Basophils % (auto) 0.5 % (0.0-2.0); Eosinophils # (auto) 0 10 ^3/uL (0-0.8); Eosinophils % (auto) 0.1 % (0.0-7.0); Hematocrit 29.6 % (36.0-46.0); Hemoglobin 9.9 g/dL (12.2-16.2); Lymphocytes # (auto) 0.7 10 ^3/uL (0.4-5.4); Lymphocytes % (auto) 8.7 % (10.0-50.0); Mean Corpuscular Hemoglobin 28.2 pg (28.0-32.0); Mean Corpuscular Hgb Conc. 33.3 g/dL (32.0-36.0); Mean Corpuscular Volume 84.5 fL (80.0-100.0); Monocytes # (auto) 0.3 10 ^3/uL (0-1.3); Monocytes % (auto) 4.2 % (0.0-12.0); Neutrophils # (auto) 6.5 10 ^3/uL (1.6-8.6); Neutrophils % (auto) 86.5 % (37.0-80.0); Nucleated Red Blood Cells % 0.1 %; Red Cell Distribution Width 16.7 % (11.8-14.3); White Blood Cell 7.5 10^3/uL (4.4-10.8)
[2021-02-11 09:00] VITALS: BP 141/80
[2021-02-11 09:01] VITALS: BP 145/88
[2021-02-11] MEDS: PANTOPRAZOLE 40 MG TAB PO SCH (09:21)
[2021-02-11] MEDS: ENOXAPARIN SOD 60 MG/0.6 ML SYRINGE SC SCH ×2 (09:21→22:20)
[2021-02-11] MEDS: POTASSIUM CHL 20 Meq TABLET PO SCH ×3 (09:21→22:20)
[2021-02-11] MEDS: NYSTATIN TOPICAL POWDER 15GM TOP SCH ×2 (09:32→22:26)
[2021-02-11 13:00] VITALS: BP 126/75
[2021-02-11] MEDS: HYDROcodone-ACET 5/325MG TAB PO PRN (13:19)
[2021-02-11 17:00] VITALS: BP 120/73
[2021-02-11] MEDS: Ensure Enlive Strawberry 8oz Bottle PO SCH (18:30)
[2021-02-11 22:00] VITALS: BP 138/78
[2021-02-11] MEDS: MORPHINE SULFATE 4 MG/ML SYR/VIAL IV PRN (22:25)
[2021-02-12] MEDS: IPRATROPIUM BROM 0.5 MG/2.5ML INH SOL NEB SCH ×2 (04:20→06:36)
[2021-02-12] MEDS: ALBUTEROL SULF 2.5 MG/0.5ML(0.5%) NEB SOLN NEB SCH ×2 (04:20→06:37)
[2021-02-12 05:00] VITALS: BP 130/78
[2021-02-12 06:01] LABS: Basophils # (auto) 0 10 ^3/uL (0-0.2); Basophils % (auto) 0.5 % (0.0-2.0); Eosinophils # (auto) 0 10 ^3/uL (0-0.8); Eosinophils % (auto) 0.1 % (0.0-7.0); Hematocrit 31.2 % (36.0-46.0); Hemoglobin 10.2 g/dL (12.2-16.2); Lymphocytes # (auto) 0.6 10 ^3/uL (0.4-5.4); Lymphocytes % (auto) 8.5 % (10.0-50.0); Mean Corpuscular Hemoglobin 27.6 pg (28.0-32.0); Mean Corpuscular Hgb Conc. 32.8 g/dL (32.0-36.0); Mean Corpuscular Volume 84.1 fL (80.0-100.0); Monocytes # (auto) 0.3 10 ^3/uL (0-1.3); Neutrophils # (auto) 6.6 10 ^3/uL (1.6-8.6); Neutrophils % (auto) 86.9 % (37.0-80.0); Nucleated Red Blood Cells % 0.1 %; Red Blood Cells 3.71 10^6/uL (4.0-5.20); Red Cell Distribution Width 16.8 % (11.8-14.3); White Blood Cell 7.6 10^3/uL (4.4-10.8)
[2021-02-12] MEDS: PIPERACILLIN-TAZOB 3.375GM 100 ML IV SCH ×3 (06:11→17:13)
[2021-02-12 06:35] LABS: BUN/Creatinine Ratio 13.2; Calcium 8.4 mg/dL (8.5-10.1); Potassium 3.2 mmol/L (3.5-5.1)
[2021-02-12] MEDS: LEVOTHYROXINE SODIUM 100 MCG TAB PO SCH (07:00)
[2021-02-12] MEDS: PANTOPRAZOLE 40 MG TAB PO SCH (08:15)
[2021-02-12] MEDS: POTASSIUM CHL 20 Meq TABLET PO SCH ×2 (08:15→21:07)
[2021-02-12] MEDS: Ensure Enlive Strawberry 8oz Bottle PO SCH ×2 (08:16→17:12)
[2021-02-12] MEDS: NYSTATIN TOPICAL POWDER 15GM TOP SCH ×2 (08:16→21:07)
[2021-02-12] MEDS: ENOXAPARIN SOD 60 MG/0.6 ML SYRINGE SC SCH ×2 (08:16→21:07)
[2021-02-12 09:00] VITALS: BP 113/68
[2021-02-12 12:30] VITALS: BP 110/58
[2021-02-12] MEDS ORDERED: POTASSIUM EFFERVESENT TAB 25 MEQ PO ONE (16:15)
[2021-02-12] MEDS ORDERED: ASCORBIC ACID 500 MG TAB PO SCH (16:15)
[2021-02-12] MEDS ORDERED: ZINC SULFATE 220mg CAP or TAB PO SCH (16:16)
[2021-02-12 16:43] VITALS: BP 129/79
[2021-02-12] MEDS: DexAMETHasone SOD PHOS 10MG/1ML VIAL INJ IV SCH (17:12)
[2021-02-12] MEDS: ASCORBIC ACID 1,000 MG TAB PO SCH (17:12)
[2021-02-12] MEDS ORDERED: REMDESIVIR PER PHARMACY 0 ML IV SCH (17:30)
[2021-02-12] MEDS ORDERED: REMDESIVIR 200 MG in NS 210ml LOADING DOSE ADULT IV ONE (21:00)
[2021-02-12 21:54] VITALS: BP 145/87
[2021-02-12] MEDS ORDERED: ALBUTEROL SULF HFA 90MCG INH 200DOSE IN SCH ×2 (22:00)
[2021-02-12] MEDS ORDERED: BUDESONIDE (INHALATION) 0.5 MG/2 ML NEB NEB SCH (22:00)
[2021-02-13] MEDS: PIPERACILLIN-TAZOB 3.375GM 100 ML IV SCH ×5 (00:05→23:55)
[2021-02-13 05:00] VITALS: BP 158/83
[2021-02-13 06:06] LABS: Basophils # (auto) 0 10 ^3/uL (0-0.2); Basophils % (auto) 0.1 % (0.0-2.0); Eosinophils # (auto) 0 10 ^3/uL (0-0.8); Hematocrit 31.9 % (36.0-46.0); Hemoglobin 10.4 g/dL (12.2-16.2); Lymphocytes # (auto) 0.6 10 ^3/uL (0.4-5.4); Lymphocytes % (auto) 10.5 % (10.0-50.0); Mean Corpuscular Hemoglobin 27.7 pg (28.0-32.0); Mean Corpuscular Hgb Conc. 32.5 g/dL (32.0-36.0); Mean Corpuscular Volume 85.2 fL (80.0-100.0); Monocytes # (auto) 0.3 10 ^3/uL (0-1.3); Monocytes % (auto) 5.4 % (0.0-12.0); Neutrophils # (auto) 4.6 10 ^3/uL (1.6-8.6); Nucleated Red Blood Cells % 0.1 %; Red Blood Cells 3.74 10^6/uL (4.0-5.20); Red Cell Distribution Width 17.2 % (11.8-14.3); White Blood Cell 5.5 10^3/uL (4.4-10.8)
[2021-02-13] MEDS: LEVOTHYROXINE SODIUM 100 MCG TAB PO SCH (06:06)
[2021-02-13 06:48] LABS: Potassium 4.1 mmol/L (3.5-5.1)
[2021-02-13 06:58] LABS: BUN/Creatinine Ratio 17.6; Calcium 8.3 mg/dL (8.5-10.1)
[2021-02-13] MEDS: ALBUTEROL SULF HFA 90MCG INH 200DOSE IN SCH ×3 (07:09→18:52)
[2021-02-13 07:11] LABS: CRP High Sensitivity 7.47 mg/dL (< 0.3)
[2021-02-13 09:00] VITALS: BP 179/107
[2021-02-13] MEDS: ZINC SULFATE 220mg CAP or TAB PO SCH (09:05)
[2021-02-13] MEDS: PANTOPRAZOLE 40 MG TAB PO SCH (09:05)
[2021-02-13] MEDS: ENOXAPARIN SOD 60 MG/0.6 ML SYRINGE SC SCH ×2 (09:05→22:07)
[2021-02-13] MEDS: CHOLECALCIFEROL (VITD3) 2,000 UNIT CAP/TAB PO SCH (09:05)
[2021-02-13] MEDS: DexAMETHasone SOD PHOS 10MG/1ML VIAL INJ IV SCH (09:05)
[2021-02-13] MEDS: ASCORBIC ACID 1,000 MG TAB PO SCH (09:05)
[2021-02-13] MEDS: NYSTATIN TOPICAL POWDER 15GM TOP SCH ×2 (09:06→22:07)
[2021-02-13] MEDS: Ensure Enlive Strawberry 8oz Bottle PO SCH ×2 (09:06→17:16)
[2021-02-13] MEDS: POTASSIUM CHL 20 Meq TABLET PO SCH ×2 (09:06→22:07)
[2021-02-13] MEDS ORDERED: DexAMETHasone SOD PHOS 10MG/1ML VIAL INJ IV SCH (10:00)
[2021-02-13] MEDS: BUDESONIDE (INHALATION) 180 MCG IH IN SCH ×2 (10:08→18:52)
[2021-02-13 10:21] LABS: Albumin 1.9 g/dL (3.4-5.0); Potassium 3.6 mmol/L (3.5-5.1)
[2021-02-13 10:24] LABS: BUN/Creatinine Ratio 16.7; Bilirubin, Total 0.6 mg/dL (0.2-1.0); Total Protein 7.2 g/dL (6.4-8.2)
[2021-02-13] MEDS: amLODIPine BESYLATE 5 MG TAB PO SCH (10:50)
[2021-02-13 13:00] VITALS: BP 167/77
[2021-02-13] MEDS: REMDESIVIR 100mg 100 MG in SODIUM CHL 0.9% 230 ML IV SCH (15:16)
[2021-02-13 17:00] VITALS: BP 156/76
[2021-02-13 21:45] VITALS: BP 147/93
[2021-02-14] VITALS (8 sets, daily range): BP systolic 131–158; BP diastolic 68–90
[2021-02-14 06:04] LABS: Basophils # (auto) 0 10 ^3/uL (0-0.2); Eosinophils # (auto) 0 10 ^3/uL (0-0.8); Mean Corpuscular Hemoglobin 27.6 pg (28.0-32.0); Monocytes # (auto) 0.4 10 ^3/uL (0-1.3); Neutrophils # (auto) 5.5 10 ^3/uL (1.6-8.6)
[2021-02-14 06:06] LABS: Basophils % (auto) 0.3 % (0.0-2.0); Eosinophils % (auto) 0.2 % (0.0-7.0); Hemoglobin 11.7 g/dL (12.2-16.2); Lymphocytes # (auto) 0.9 10 ^3/uL (0.4-5.4); Lymphocytes % (auto) 12.7 % (10.0-50.0); Mean Corpuscular Hgb Conc. 32.6 g/dL (32.0-36.0); Mean Corpuscular Volume 84.7 fL (80.0-100.0); Monocytes % (auto) 5.9 % (0.0-12.0); Neutrophils % (auto) 80.9 % (37.0-80.0); Nucleated Red Blood Cells % 0.1 %; Red Blood Cells 4.25 10^6/uL (4.0-5.20); Red Cell Distribution Width 16.7 % (11.8-14.3); White Blood Cell 6.8 10^3/uL (4.4-10.8)
[2021-02-14 06:23] LABS: Potassium 4.3 mmol/L (3.5-5.1)
[2021-02-14] MEDS: PIPERACILLIN-TAZOB 3.375GM 100 ML IV SCH ×4 (06:34→23:32)
[2021-02-14] MEDS: LEVOTHYROXINE SODIUM 100 MCG TAB PO SCH (06:34)
[2021-02-14 06:36] LABS: Albumin 1.9 g/dL (3.4-5.0); BUN/Creatinine Ratio 20.8; Bilirubin, Total 0.6 mg/dL (0.2-1.0); CRP High Sensitivity 4.5 mg/dL (< 0.3); Calcium 9.1 mg/dL (8.5-10.1); Total Protein 7.3 g/dL (6.4-8.2)
[2021-02-14] MEDS: BUDESONIDE (INHALATION) 180 MCG IH IN SCH ×2 (06:41→19:43)
[2021-02-14] MEDS: ALBUTEROL SULF HFA 90MCG INH 200DOSE IN SCH ×3 (06:41→19:44)
[2021-02-14] MEDS: Ensure Enlive Strawberry 8oz Bottle PO SCH ×2 (08:00→18:00)
[2021-02-14] MEDS: POTASSIUM CHL 20 Meq TABLET PO SCH ×2 (09:58→21:47)
[2021-02-14] MEDS: CHOLECALCIFEROL (VITD3) 2,000 UNIT CAP/TAB PO SCH (10:10)
[2021-02-14] MEDS: ZINC SULFATE 220mg CAP or TAB PO SCH (10:11)
[2021-02-14] MEDS: ASCORBIC ACID 1,000 MG TAB PO SCH (10:11)
[2021-02-14] MEDS: PANTOPRAZOLE 40 MG TAB PO SCH (10:11)
[2021-02-14] MEDS: ENOXAPARIN SOD 60 MG/0.6 ML SYRINGE SC SCH ×2 (10:11→21:47)
[2021-02-14] MEDS: IVERMECTIN 3 MG TAB PO SCH (10:11)
[2021-02-14] MEDS: NYSTATIN TOPICAL POWDER 15GM TOP SCH ×2 (10:11→21:47)
[2021-02-14] MEDS: DexAMETHasone SOD PHOS 10MG/1ML VIAL INJ IV SCH (10:11)
[2021-02-14] MEDS: amLODIPine BESYLATE 5 MG TAB PO SCH (10:12)
[2021-02-14] MEDS: REMDESIVIR 100mg 100 MG in SODIUM CHL 0.9% 230 ML IV SCH (15:11)
[2021-02-14] MEDS ORDERED: FUROSEMIDE 20 MG/2 ML VIAL IV ONE (18:45)
[2021-02-14] MEDS ORDERED: LORazepam 0.5 MG TAB PO PRN (20:45)
[2021-02-15] VITALS (17 sets, daily range): BP systolic 147–181; BP diastolic 78–152
[2021-02-15] MEDS: PIPERACILLIN-TAZOB 3.375GM 100 ML IV SCH (05:21)
[2021-02-15] MEDS: ALBUTEROL SULF HFA 90MCG INH 200DOSE IN SCH ×3 (06:00→22:00)
[2021-02-15 06:06] LABS: RPR Non Reactive (Non Reactive)
[2021-02-15] MEDS: LEVOTHYROXINE SODIUM 100 MCG TAB PO SCH (06:35)
[2021-02-15 06:59] LABS: Potassium 3.4 mmol/L (3.5-5.1)
[2021-02-15] MEDS: BUDESONIDE (INHALATION) 180 MCG IH IN SCH ×2 (07:18→22:00)
[2021-02-15 07:22] LABS: Albumin 1.8 g/dL (3.4-5.0); BUN/Creatinine Ratio 24.7; Bilirubin, Total 0.8 mg/dL (0.2-1.0); CRP High Sensitivity 7.76 mg/dL (< 0.3); Calcium 8.7 mg/dL (8.5-10.1)
[2021-02-15] MEDS: Ensure Enlive Strawberry 8oz Bottle PO SCH (08:00)
[2021-02-15] MEDS ORDERED: SODIUM CHLORIDE 0.9% IV SCH ×2 (09:30→16:45)
[2021-02-15] MEDS ORDERED: AMPICILLIN IV SCH ×2 (09:30→16:45)
[2021-02-15] MEDS ORDERED: SULBACTAM SODIUM IV SCH ×2 (09:30→16:45)
[2021-02-15] MEDS: FAMOTIDINE (10MG/ML) 2ML VL IV SCH ×2 (09:40→22:00)
[2021-02-15] MEDS: DexAMETHasone SOD PHOS 10MG/1ML VIAL INJ IV SCH (09:40)
[2021-02-15] MEDS: POTASSIUM CHL 20 Meq TABLET PO SCH ×3 (09:40→22:00)
[2021-02-15] MEDS: HYDROcodone-ACET 5/325MG TAB PO PRN (09:41)
[2021-02-15] MEDS: ZINC SULFATE 220mg CAP or TAB PO SCH ×2 (09:41→10:00)
[2021-02-15] MEDS: IVERMECTIN 3 MG TAB PO SCH ×2 (09:41→10:00)
[2021-02-15] MEDS: ASCORBIC ACID 1,000 MG TAB PO SCH ×2 (09:41→10:00)
[2021-02-15] MEDS: ENOXAPARIN SOD 60 MG/0.6 ML SYRINGE SC SCH ×2 (09:41→22:00)
[2021-02-15] MEDS: CHOLECALCIFEROL (VITD3) 2,000 UNIT CAP/TAB PO SCH ×2 (09:41→10:00)
[2021-02-15] MEDS: amLODIPine BESYLATE 5 MG TAB PO SCH ×2 (09:42→10:00)
[2021-02-15] MEDS ORDERED: TOCILIZUMAB 400 MG in SODIUM CHL 0.9% 80 ML IV ONE (10:00)
[2021-02-15] MEDS ORDERED: FUROSEMIDE 40 MG/4 ML VIAL IV ONE (10:00)
[2021-02-15] MEDS: REMDESIVIR 100mg 100 MG in SODIUM CHL 0.9% 230 ML IV SCH (15:00)
[2021-02-15] MEDS ORDERED: HALOPERIDOL LACTATE 5 MG/ML INJ VIAL IM ONE (20:45)
[2021-02-15] MEDS ORDERED: HALOPERIDOL LACTATE 5 MG/ML INJ VIAL ONE (20:51)
[2021-02-15] MEDS: hydrALAZINE HCL 20 MG/ML VL IV PRN (22:36)
[2021-02-15] MEDS: AMPICILLIN & SULBACTAM SODIUM 3 GM in SODIUM CHL 0.9% 100 ML IV SCH (23:58)
[2021-02-16] VITALS (29 sets, daily range): BP systolic 117–193; BP diastolic 68–99
[2021-02-16] MEDS: MORPHINE SULFATE 4 MG/ML SYR/VIAL IV PRN ×2 (02:00→09:14)
[2021-02-16] MEDS ORDERED: HALOPERIDOL LACTATE 5 MG/ML INJ VIAL IM PRN (03:30)
[2021-02-16] MEDS: ALBUTEROL SULF HFA 90MCG INH 200DOSE IN SCH ×4 (06:00→22:35)
[2021-02-16 06:01] LABS: Albumin 2.1 g/dL (3.4-5.0); Calcium 8.9 mg/dL (8.5-10.1); Potassium 3.4 mmol/L (3.5-5.1)
[2021-02-16 06:09] LABS: BUN/Creatinine Ratio 31.4; Bilirubin, Total 0.7 mg/dL (0.2-1.0); CRP High Sensitivity 7.79 mg/dL (< 0.3); Total Protein 7.6 g/dL (6.4-8.2)
[2021-02-16] MEDS: BUDESONIDE (INHALATION) 180 MCG IH IN SCH ×3 (06:16→22:35)
[2021-02-16] MEDS: LEVOTHYROXINE SODIUM 100 MCG TAB PO SCH (06:36)
[2021-02-16] MEDS: hydrALAZINE HCL 20 MG/ML VL IV PRN ×2 (06:37→23:13)
[2021-02-16] MEDS: AMPICILLIN & SULBACTAM SODIUM 3 GM in SODIUM CHL 0.9% 100 ML IV SCH ×4 (06:39→23:33)
[2021-02-16] MEDS: Ensure Enlive Strawberry 8oz Bottle PO SCH ×2 (08:00→18:00)
[2021-02-16] MEDS: ENOXAPARIN SOD 60 MG/0.6 ML SYRINGE SC SCH ×2 (09:14→21:14)
[2021-02-16] MEDS: DexAMETHasone SOD PHOS 10MG/1ML VIAL INJ IV SCH (09:14)
[2021-02-16] MEDS: FAMOTIDINE (10MG/ML) 2ML VL IV SCH ×2 (09:15→21:14)
[2021-02-16] MEDS: amLODIPine BESYLATE 5 MG TAB PO SCH (10:00)
[2021-02-16] MEDS: ASCORBIC ACID 1,000 MG TAB PO SCH (10:00)
[2021-02-16] MEDS: CHOLECALCIFEROL (VITD3) 2,000 UNIT CAP/TAB PO SCH (10:00)
[2021-02-16] MEDS: ZINC SULFATE 220mg CAP or TAB PO SCH (10:00)
[2021-02-16] MEDS: POTASSIUM CHL 20 Meq TABLET PO SCH ×2 (10:00→21:14)
[2021-02-16] MEDS: IVERMECTIN 3 MG TAB PO SCH (10:00)
[2021-02-16] MEDS ORDERED: REMDESIVIR 100mg 100 MG in SODIUM CHL 0.9% 230 ML IV ONE ×2 (15:00→17:00)
[2021-02-16] MEDS: REMDESIVIR 100mg 100 MG in SODIUM CHL 0.9% 230 ML IV SCH (17:10)
[2021-02-16] MEDS: LEVOTHYROXINE SODIUM 100 MCG/5 ML INJ IV SCH (18:03)
[2021-02-16] MEDS: HALOPERIDOL LACTATE 5 MG/ML INJ VIAL IM PRN (18:34)
[2021-02-16] MEDS ORDERED: AMINO ACID INFUSION IN D10W 1,000 ML IV NR (20:00)
[2021-02-16] MEDS ORDERED: AMINO ACID INFUSION IN D5W 1,000 ML IV NR (20:00)
[2021-02-16] MEDS ORDERED: PPN PER PHARMACY 0 ML IV SCH (20:00)
[2021-02-16] MEDS ORDERED: POTASSIUM CHL 20MEQ/100ML 100 ML IV ONE (20:00)
[2021-02-16] MEDS ORDERED: ACETAMINOPHEN 650 MG RECT SUPP PR PRN (20:15)
[2021-02-16] MEDS: InsuLIN REG 1unit/0.01ml Soln (100units/ml) SC SCH (23:31)
[2021-02-16] MEDS: ACCU-CHEK COMFORT CURVE STRIP VI SCH (23:32)
[2021-02-17] VITALS (29 sets, daily range): BP systolic 121–176; BP diastolic 51–93
[2021-02-17] MEDS ORDERED: DEXTROSE (50%) 50ML SYRG IV SCH
[2021-02-17 04:55] LABS: Albumin 2.3 g/dL (3.4-5.0); Magnesium 2.9 mg/dL (1.6-2.6)
[2021-02-17 05:04] LABS: BUN/Creatinine Ratio 29.9; Bilirubin, Total 0.8 mg/dL (0.2-1.0); CRP High Sensitivity 3.95 mg/dL (< 0.3); Phosphorus 1.3 mg/dL (2.5-4.90); Pre Albumin 15.5 mg/dL (20.0-40.0); Total Protein 7.9 g/dL (6.4-8.2)
[2021-02-17 05:08] LABS: Potassium 2.8 mmol/L (3.5-5.1)
[2021-02-17] MEDS: ALBUTEROL SULF HFA 90MCG INH 200DOSE IN SCH ×3 (06:00→18:30)
[2021-02-17] MEDS: POTASSIUM CHL 20MEQ/100ML 100 ML IV SCH ×3 (06:14→11:03)
[2021-02-17] MEDS: hydrALAZINE HCL 20 MG/ML VL IV PRN ×2 (06:20→12:17)
[2021-02-17] MEDS: ACCU-CHEK COMFORT CURVE STRIP VI SCH ×3 (06:48→19:19)
[2021-02-17] MEDS: InsuLIN REG 1unit/0.01ml Soln (100units/ml) SC SCH ×3 (06:48→19:16)
[2021-02-17] MEDS: LEVOTHYROXINE SODIUM 100 MCG TAB PO SCH (07:00)
[2021-02-17] MEDS: Ensure Enlive Strawberry 8oz Bottle PO SCH ×2 (08:00→18:00)
[2021-02-17] MEDS: AMPICILLIN & SULBACTAM SODIUM 3 GM in SODIUM CHL 0.9% 100 ML IV SCH ×3 (08:34→18:59)
[2021-02-17] MEDS: BUDESONIDE (INHALATION) 180 MCG IH IN SCH ×2 (09:15→18:30)
[2021-02-17] MEDS: MORPHINE SULFATE 4 MG/ML SYR/VIAL IV PRN ×3 (09:49→22:23)
[2021-02-17] MEDS: ZINC SULFATE 220mg CAP or TAB PO SCH (10:00)
[2021-02-17] MEDS: IVERMECTIN 3 MG TAB PO SCH (10:00)
[2021-02-17] MEDS: ASCORBIC ACID 1,000 MG TAB PO SCH (10:00)
[2021-02-17] MEDS: amLODIPine BESYLATE 5 MG TAB PO SCH (10:00)
[2021-02-17] MEDS: CHOLECALCIFEROL (VITD3) 2,000 UNIT CAP/TAB PO SCH (10:00)
[2021-02-17] MEDS: POTASSIUM CHL 20 Meq TABLET PO SCH ×2 (10:00→22:00)
[2021-02-17] MEDS: LEVOTHYROXINE SODIUM 100 MCG/5 ML INJ IV SCH (10:02)
[2021-02-17] MEDS: ENOXAPARIN SOD 60 MG/0.6 ML SYRINGE SC SCH ×2 (10:03→22:00)
[2021-02-17] MEDS: FAMOTIDINE (10MG/ML) 2ML VL IV SCH ×2 (10:06→22:00)
[2021-02-17] MEDS: DexAMETHasone SOD PHOS 10MG/1ML VIAL INJ IV SCH (10:11)
[2021-02-17] MEDS ORDERED: POTASSIUM PHOSPHATE 22 MEQ in SODIUM CHL 0.9% 100 ML IV ONE (13:00)
[2021-02-17] MEDS ORDERED: PPN PER PHARMACY IV NR ×7 (20:00)
[2021-02-18] VITALS (26 sets, daily range): BP systolic 108–171; BP diastolic 38–95
[2021-02-18] MEDS: ACCU-CHEK COMFORT CURVE STRIP VI SCH ×4 (00:23→14:52)
[2021-02-18] MEDS: InsuLIN REG 1unit/0.01ml Soln (100units/ml) SC SCH ×4 (00:24→12:00)
[2021-02-18] MEDS: AMPICILLIN & SULBACTAM SODIUM 3 GM in SODIUM CHL 0.9% 100 ML IV SCH ×4 (00:26→20:00)
[2021-02-18] MEDS: ALBUTEROL SULF HFA 90MCG INH 200DOSE IN SCH ×3 (06:00→18:10)
[2021-02-18 06:41] LABS: Basophils # (auto) 0 10 ^3/uL (0-0.2); Basophils % (auto) 0.1 % (0.0-2.0); Eosinophils # (auto) 0 10 ^3/uL (0-0.8); Hemoglobin 11.2 g/dL (12.2-16.2); Monocytes # (auto) 0.6 10 ^3/uL (0-1.3); Neutrophils # (auto) 5.5 10 ^3/uL (1.6-8.6); Nucleated Red Blood Cells % 0.3 %
[2021-02-18 06:44] LABS: Hematocrit 35.2 % (36.0-46.0); Lymphocytes # (auto) 0.8 10 ^3/uL (0.4-5.4); Lymphocytes % (auto) 11.3 % (10.0-50.0); Mean Corpuscular Hemoglobin 27.6 pg (28.0-32.0); Mean Corpuscular Hgb Conc. 31.8 g/dL (32.0-36.0); Mean Corpuscular Volume 86.7 fL (80.0-100.0); Monocytes % (auto) 8.3 % (0.0-12.0); Neutrophils % (auto) 80.3 % (37.0-80.0); Red Blood Cells 4.06 10^6/uL (4.0-5.20); Red Cell Distribution Width 17.5 % (11.8-14.3); White Blood Cell 6.8 10^3/uL (4.4-10.8)
[2021-02-18 06:56] LABS: Potassium 3.6 mmol/L (3.5-5.1)
[2021-02-18] MEDS: LEVOTHYROXINE SODIUM 100 MCG TAB PO SCH (07:00)
[2021-02-18] MEDS: Ensure Enlive Strawberry 8oz Bottle PO SCH ×2 (08:00→18:00)
[2021-02-18] MEDS: LEVOTHYROXINE SODIUM 100 MCG/5 ML INJ IV SCH (09:56)
[2021-02-18] MEDS: FAMOTIDINE (10MG/ML) 2ML VL IV SCH ×2 (09:56→22:50)
[2021-02-18] MEDS: DexAMETHasone SOD PHOS 10MG/1ML VIAL INJ IV SCH (09:57)
[2021-02-18] MEDS: ENOXAPARIN SOD 60 MG/0.6 ML SYRINGE SC SCH ×2 (09:57→22:49)
[2021-02-18] MEDS: ZINC SULFATE 220mg CAP or TAB PO SCH (10:00)
[2021-02-18] MEDS: POTASSIUM CHL 20 Meq TABLET PO SCH ×2 (10:00→22:49)
[2021-02-18] MEDS: CHOLECALCIFEROL (VITD3) 2,000 UNIT CAP/TAB PO SCH (10:00)
[2021-02-18] MEDS: IVERMECTIN 3 MG TAB PO SCH (10:00)
[2021-02-18] MEDS: BUDESONIDE (INHALATION) 180 MCG IH IN SCH ×2 (10:00→18:10)
[2021-02-18] MEDS: ASCORBIC ACID 1,000 MG TAB PO SCH (10:00)
[2021-02-18] MEDS: amLODIPine BESYLATE 5 MG TAB PO SCH (10:00)
[2021-02-18] MEDS: D5W 5% 1,000 ML IV SCH ×2 (10:30→20:43)
[2021-02-18 11:06] LABS: Folate (Folic Acid) 22.55 ng/mL (5.38-24)
[2021-02-18] MEDS ORDERED: TPN PER PHARMACY IV SCH ×7 (20:00)
[2021-02-18] MEDS ORDERED: PPN PER PHARMACY IV NR ×7 (20:00)
[2021-02-18] MEDS ORDERED: TOCILIZUMAB 400 MG in SODIUM CHL 0.9% 80 ML IV SCH (20:15)
[2021-02-19] VITALS (27 sets, daily range): BP systolic 138–168; BP diastolic 64–90
[2021-02-19] MEDS: ACCU-CHEK COMFORT CURVE STRIP VI SCH ×4 (00:05→18:00)
[2021-02-19] MEDS: InsuLIN REG 1unit/0.01ml Soln (100units/ml) SC SCH ×4 (05:34→18:00)
[2021-02-19] MEDS: AMPICILLIN & SULBACTAM SODIUM 3 GM in SODIUM CHL 0.9% 100 ML IV SCH ×5 (06:07→21:10)
[2021-02-19 06:26] LABS: Calcium 8.7 mg/dL (8.5-10.1); Magnesium 2.5 mg/dL (1.6-2.6); Potassium 3.1 mmol/L (3.5-5.1)
[2021-02-19 06:31] LABS: BUN/Creatinine Ratio 43.7; Bilirubin, Total 0.8 mg/dL (0.2-1.0); CRP High Sensitivity 0.8 mg/dL (< 0.3); Phosphorus 1.5 mg/dL (2.5-4.90); Total Protein 6.4 g/dL (6.4-8.2)
[2021-02-19] MEDS: LEVOTHYROXINE SODIUM 100 MCG TAB PO SCH (06:45)
[2021-02-19] MEDS: D5W 5% 1,000 ML IV SCH ×2 (06:46→16:30)
[2021-02-19] MEDS: MORPHINE SULFATE 4 MG/ML SYR/VIAL IV PRN ×2 (07:06→12:30)
[2021-02-19] MEDS: Ensure Enlive Strawberry 8oz Bottle PO SCH ×2 (08:00→18:00)
[2021-02-19] MEDS: BUDESONIDE (INHALATION) 180 MCG IH IN SCH ×2 (08:26→18:30)
[2021-02-19] MEDS: ALBUTEROL SULF HFA 90MCG INH 200DOSE IN SCH ×3 (08:26→18:30)
[2021-02-19] MEDS ORDERED: POTASSIUM PHOSPHATE 44 MEQ in D5W 5% 250 ML IV ONE (10:00)
[2021-02-19] MEDS: POTASSIUM CHL 20 Meq TABLET PO SCH ×2 (10:00→22:00)
[2021-02-19] MEDS: DexAMETHasone SOD PHOS 10MG/1ML VIAL INJ IV SCH (10:03)
[2021-02-19] MEDS: FAMOTIDINE (10MG/ML) 2ML VL IV SCH ×2 (10:03→21:51)
[2021-02-19] MEDS: ASCORBIC ACID 1,000 MG TAB PO SCH (10:03)
[2021-02-19] MEDS: ENOXAPARIN SOD 60 MG/0.6 ML SYRINGE SC SCH ×2 (10:03→21:51)
[2021-02-19] MEDS: CHOLECALCIFEROL (VITD3) 2,000 UNIT CAP/TAB PO SCH (10:03)
[2021-02-19] MEDS: amLODIPine BESYLATE 5 MG TAB PO SCH (10:05)
[2021-02-19] MEDS: ZINC SULFATE 220mg CAP or TAB PO SCH (10:05)
[2021-02-19] MEDS: LEVOTHYROXINE SODIUM 100 MCG/5 ML INJ IV SCH (11:08)
[2021-02-19] MEDS ORDERED: MORPHINE SULFATE INJECTION 2 MG/ML SYRG ONE (17:36)
[2021-02-19] MEDS ORDERED: TPN PER PHARMACY IV NR ×8 (20:00)
[2021-02-19] MEDS ORDERED: PPN PER PHARMACY IV NR ×8 (20:00)
[2021-02-20] VITALS (45 sets, daily range): BP systolic 69–181; BP diastolic 34–120
[2021-02-20] MEDS: HALOPERIDOL LACTATE 5 MG/ML INJ VIAL IM PRN ×2 (02:23→15:24)
[2021-02-20] MEDS: D5W 5% 1,000 ML IV SCH ×2 (02:57→10:04)
[2021-02-20] MEDS: InsuLIN REG 1unit/0.01ml Soln (100units/ml) SC SCH ×4 (05:44→17:31)
[2021-02-20] MEDS: ACCU-CHEK COMFORT CURVE STRIP VI SCH ×4 (05:45→17:31)
[2021-02-20 05:46] LABS: Potassium 3.1 mmol/L (3.5-5.1)
[2021-02-20] MEDS: AMPICILLIN & SULBACTAM SODIUM 3 GM in SODIUM CHL 0.9% 100 ML IV SCH ×4 (05:47→17:30)
[2021-02-20 05:54] LABS: Albumin 2.2 g/dL (3.4-5.0); BUN/Creatinine Ratio 31.9; Bilirubin, Total 0.9 mg/dL (0.2-1.0); Calcium 8.3 mg/dL (8.5-10.1); Magnesium 2.4 mg/dL (1.6-2.6); Phosphorus 2.2 mg/dL (2.5-4.90); Total Protein 6.5 g/dL (6.4-8.2)
[2021-02-20] MEDS: ALBUTEROL SULF HFA 90MCG INH 200DOSE IN SCH ×3 (06:00→22:47)
[2021-02-20] MEDS: LEVOTHYROXINE SODIUM 100 MCG TAB PO SCH (07:00)
[2021-02-20] MEDS: Ensure Enlive Strawberry 8oz Bottle PO SCH ×2 (08:29→17:30)
[2021-02-20] MEDS ORDERED: POTASSIUM CHL 20MEQ/100ML 100 ML IV ONE (09:00)
[2021-02-20] MEDS: CHOLECALCIFEROL (VITD3) 2,000 UNIT CAP/TAB PO SCH (09:58)
[2021-02-20] MEDS: amLODIPine BESYLATE 5 MG TAB PO SCH (09:58)
[2021-02-20] MEDS: ASCORBIC ACID 1,000 MG TAB PO SCH (09:58)
[2021-02-20] MEDS: POTASSIUM CHL 20 Meq TABLET PO SCH ×2 (09:59→20:13)
[2021-02-20] MEDS: ZINC SULFATE 220mg CAP or TAB PO SCH (09:59)
[2021-02-20] MEDS: BUDESONIDE (INHALATION) 180 MCG IH IN SCH ×2 (10:00→22:47)
[2021-02-20] MEDS: ENOXAPARIN SOD 60 MG/0.6 ML SYRINGE SC SCH ×2 (10:03→21:09)
[2021-02-20] MEDS: DexAMETHasone SOD PHOS 10MG/1ML VIAL INJ IV SCH (10:03)
[2021-02-20] MEDS: FAMOTIDINE (10MG/ML) 2ML VL IV SCH ×2 (10:03→21:09)
[2021-02-20] MEDS: LEVOTHYROXINE SODIUM 100 MCG/5 ML INJ IV SCH (10:03)
[2021-02-20] MEDS ORDERED: POTASSIUM PHOSP 22MEQ(15MMOLE) in NS 100 ML IV ONE (11:00)
[2021-02-20] MEDS: hydrALAZINE HCL 20 MG/ML VL IV PRN (14:06)
[2021-02-20] MEDS: MORPHINE SULFATE 4 MG/ML SYR/VIAL IV PRN ×2 (16:05→22:58)
[2021-02-20] MEDS ORDERED: FUROSEMIDE 40 MG/4 ML VIAL IV ONE (17:15)
[2021-02-20] MEDS ORDERED: NOREPINEPHRINE 8 MG/250ML KIT 250 ML IV ONE (18:06)
[2021-02-20] MEDS: NOREPINEPHRINE 8 MG/250ML KIT 250 ML IV SCH (19:29)
[2021-02-20] MEDS ORDERED: PPN PER PHARMACY IV NR ×8 (20:00)
[2021-02-21] VITALS (91 sets, daily range): BP systolic 75–166; BP diastolic 34–101
[2021-02-21] MEDS: InsuLIN REG 1unit/0.01ml Soln (100units/ml) SC SCH ×3 (00:49→12:00)
[2021-02-21] MEDS: ACCU-CHEK COMFORT CURVE STRIP VI SCH ×3 (00:49→12:00)
[2021-02-21] MEDS: AMPICILLIN & SULBACTAM SODIUM 3 GM in SODIUM CHL 0.9% 100 ML IV SCH ×5 (00:59→23:53)
[2021-02-21] MEDS: NOREPINEPHRINE 8 MG/250ML KIT 250 ML IV SCH ×2 (02:47→23:50)
[2021-02-21] MEDS: HALOPERIDOL LACTATE 5 MG/ML INJ VIAL IM PRN (03:45)
[2021-02-21] MEDS: MORPHINE SULFATE 4 MG/ML SYR/VIAL IV PRN (05:53)
[2021-02-21] MEDS: BUDESONIDE (INHALATION) 180 MCG IH IN SCH (06:17)
[2021-02-21] MEDS: ALBUTEROL SULF HFA 90MCG INH 200DOSE IN SCH (06:17)
[2021-02-21] MEDS: LEVOTHYROXINE SODIUM 100 MCG TAB PO SCH (07:00)
[2021-02-21] MEDS: Ensure Enlive Strawberry 8oz Bottle PO SCH ×2 (08:00→18:00)
[2021-02-21] MEDS: D5W 5% 1,000 ML IV SCH (09:15)
[2021-02-21] MEDS: ZINC SULFATE 220mg CAP or TAB PO SCH (10:00)
[2021-02-21] MEDS: CHOLECALCIFEROL (VITD3) 2,000 UNIT CAP/TAB PO SCH (10:00)
[2021-02-21] MEDS: ASCORBIC ACID 1,000 MG TAB PO SCH (10:00)
[2021-02-21] MEDS: amLODIPine BESYLATE 5 MG TAB PO SCH (10:00)
[2021-02-21] MEDS: POTASSIUM CHL 20 Meq TABLET PO SCH ×2 (10:00→22:00)
[2021-02-21 10:17] LABS: Hematocrit 36.7 % (36.0-46.0); Hemoglobin 11.8 g/dL (12.2-16.2); Mean Corpuscular Hemoglobin 27.4 pg (28.0-32.0); Mean Corpuscular Hgb Conc. 32.1 g/dL (32.0-36.0); Mean Corpuscular Volume 85.3 fL (80.0-100.0); Red Cell Distribution Width 17.6 % (11.8-14.3); White Blood Cell 19.2 10^3/uL (4.4-10.8)
[2021-02-21 10:32] LABS: Basophils % (manual) 0 (0.0-2.0); Blast Cells 0; Eosinophils % (manual) 0 (0-7); Metamyelocytes % 0; Promyelocytes % 0; Reactive Lymphocytes 0
[2021-02-21 10:40] LABS: BUN/Creatinine Ratio 28.3; Potassium 3.1 mmol/L (3.5-5.1)
[2021-02-21 10:41] LABS: Albumin 2.6 g/dL (3.4-5.0); Bilirubin, Total 1.2 mg/dL (0.2-1.0); Calcium 8.7 mg/dL (8.5-10.1); Magnesium 2.4 mg/dL (1.6-2.6); Phosphorus 3.6 mg/dL (2.5-4.90); Total Protein 7.1 g/dL (6.4-8.2)
[2021-02-21] MEDS: LEVOTHYROXINE SODIUM 100 MCG/5 ML INJ IV SCH (11:37)
[2021-02-21] MEDS: ENOXAPARIN SOD 60 MG/0.6 ML SYRINGE SC SCH ×2 (11:38→20:42)
[2021-02-21] MEDS: DexAMETHasone SOD PHOS 10MG/1ML VIAL INJ IV SCH (11:38)
[2021-02-21] MEDS: FAMOTIDINE (10MG/ML) 2ML VL IV SCH ×2 (11:38→20:42)
[2021-02-21 13:50] LABS: INR 1.34 (0.9-1.15); Partial Thromboplastin Time 31.3 sec (23.6-33.0)
[2021-02-21 14:55] LABS: Band Neutrophils % (manual) 4; Lymphocytes % (manual) 4 (10.0-50.0); Monocytes % (manual) 7 (0-12); Myelocytes % 1
[2021-02-21] MEDS ORDERED: PROPOFOL 100 ML IV ONE (16:25)
[2021-02-21] MEDS ORDERED: fentaNYL Drip 2500mCg/250mlNS 250 ML IV ONE (16:25)
[2021-02-21] MEDS: fentaNYL Drip 2500mCg/250mlNS 250 ML IV SCH (16:39)
[2021-02-21] MEDS: PROPOFOL 100 ML IV SCH ×2 (16:39→22:38)
[2021-02-21] MEDS ORDERED: AMINO ACID INFUSION IN D10W 1,000 ML IV NR (20:00)
[2021-02-21] MEDS: POTASSIUM CHL 20MEQ/100ML 100 ML IV SCH ×2 (21:00→23:50)
[2021-02-21] MEDS: ALBUTEROL SULF 2.5 MG/0.5ML(0.5%) NEB SOLN NEB PRN (22:24)
[2021-02-21] MEDS: BUDESONIDE (INHALATION) 0.5 MG/2 ML NEB NEB SCH (22:25)
[2021-02-21] MEDS ORDERED: POTASSIUM CHL 20MEQ/100ML 100 ML IV ONE (23:50)
[2021-02-22] VITALS (96 sets, daily range): BP systolic 91–140; BP diastolic 51–88
[2021-02-22] MEDS: PROPOFOL 100 ML IV SCH ×2 (03:36→20:00)
[2021-02-22 05:38] LABS: Albumin 2.2 g/dL (3.4-5.0); Calcium 7.9 mg/dL (8.5-10.1); Magnesium 2.5 mg/dL (1.6-2.6); Potassium 4.5 mmol/L (3.5-5.1)
[2021-02-22 05:42] LABS: BUN/Creatinine Ratio 27.7; Bilirubin, Total 1.5 mg/dL (0.2-1.0); Phosphorus 4.6 mg/dL (2.5-4.90); Total Protein 6.4 g/dL (6.4-8.2)
[2021-02-22] MEDS: AMPICILLIN & SULBACTAM SODIUM 3 GM in SODIUM CHL 0.9% 100 ML IV SCH ×2 (06:13→12:12)
[2021-02-22] MEDS: fentaNYL Drip 2500mCg/250mlNS 250 ML IV SCH (06:14)
[2021-02-22] MEDS: NOREPINEPHRINE 8 MG/250ML KIT 250 ML IV SCH ×2 (06:14→20:00)
[2021-02-22] MEDS: ACCU-CHEK COMFORT CURVE STRIP VI SCH ×4 (06:15→18:15)
[2021-02-22] MEDS: InsuLIN REG 1unit/0.01ml Soln (100units/ml) SC SCH ×4 (06:15→18:15)
[2021-02-22] MEDS: LEVOTHYROXINE SODIUM 100 MCG TAB PO SCH (07:00)
[2021-02-22] MEDS: Ensure Enlive Strawberry 8oz Bottle PO SCH ×2 (08:00→15:37)
[2021-02-22] MEDS ORDERED: SODIUM BICARBONATE 8.4 % INJ 50ML VIAL IV ONE (08:45)
[2021-02-22 09:00] LABS: Basophils # (auto) 0.1 10 ^3/uL (0-0.2); Basophils % (auto) 0.5 % (0.0-2.0); Eosinophils # (auto) 0.1 10 ^3/uL (0-0.8); Eosinophils % (auto) 0.4 % (0.0-7.0); Hematocrit 33.8 % (36.0-46.0); Hemoglobin 10.8 g/dL (12.2-16.2); Lymphocytes # (auto) 1.2 10 ^3/uL (0.4-5.4); Lymphocytes % (auto) 6.3 % (10.0-50.0); Mean Corpuscular Hemoglobin 28.1 pg (28.0-32.0); Mean Corpuscular Hgb Conc. 31.8 g/dL (32.0-36.0); Mean Corpuscular Volume 88.2 fL (80.0-100.0); Monocytes # (auto) 0.7 10 ^3/uL (0-1.3); Monocytes % (auto) 3.7 % (0.0-12.0); Neutrophils # (auto) 16.4 10 ^3/uL (1.6-8.6); Neutrophils % (auto) 89.1 % (37.0-80.0); Nucleated Red Blood Cells % 0.4 %; Red Blood Cells 3.84 10^6/uL (4.0-5.20); White Blood Cell 18.4 10^3/uL (4.4-10.8)
[2021-02-22] MEDS: D5W 5% 1,000 ML IV SCH (09:15)
[2021-02-22] MEDS: ZINC SULFATE 220mg CAP or TAB PO SCH (10:00)
[2021-02-22] MEDS: amLODIPine BESYLATE 5 MG TAB PO SCH (10:00)
[2021-02-22] MEDS: ASCORBIC ACID 1,000 MG TAB PO SCH (10:00)
[2021-02-22] MEDS: POTASSIUM CHL 20 Meq TABLET PO SCH ×2 (10:00→22:00)
[2021-02-22] MEDS: CHOLECALCIFEROL (VITD3) 2,000 UNIT CAP/TAB PO SCH (10:00)
[2021-02-22] MEDS: ENOXAPARIN SOD 60 MG/0.6 ML SYRINGE SC SCH ×2 (10:00→22:00)
[2021-02-22] MEDS: BUDESONIDE (INHALATION) 0.5 MG/2 ML NEB NEB SCH ×2 (10:00→21:52)
[2021-02-22] MEDS: LEVOTHYROXINE SODIUM 100 MCG/5 ML INJ IV SCH (10:18)
[2021-02-22] MEDS: FAMOTIDINE (10MG/ML) 2ML VL IV SCH ×2 (10:18→22:00)
[2021-02-22] MEDS: DexAMETHasone SOD PHOS 10MG/1ML VIAL INJ IV SCH (10:18)
[2021-02-22 10:23] LABS: BUN/Creatinine Ratio 24.4; Calcium 8.1 mg/dL (8.5-10.1); Potassium 4.3 mmol/L (3.5-5.1)
[2021-02-22] MEDS: MEROPENEM 1GM IVPB 100 ML IV SCH (14:00)
[2021-02-22] MEDS ORDERED: PPN PER PHARMACY IV NR ×7 (20:00)
[2021-02-22] MEDS: ALBUTEROL SULF 2.5 MG/0.5ML(0.5%) NEB SOLN NEB PRN (21:52)
[2021-02-23] VITALS (109 sets, daily range): BP systolic 88–136; BP diastolic 45–83
[2021-02-23] MEDS: MEROPENEM 1GM IVPB 100 ML IV SCH ×2 (02:26→13:18)
[2021-02-23] MEDS: ALBUTEROL SULF 2.5 MG/0.5ML(0.5%) NEB SOLN NEB PRN ×2 (05:58→22:19)
[2021-02-23] MEDS: BUDESONIDE (INHALATION) 0.5 MG/2 ML NEB NEB SCH ×2 (05:58→22:19)
[2021-02-23] MEDS: ACCU-CHEK COMFORT CURVE STRIP VI SCH ×4 (06:00→18:35)
[2021-02-23] MEDS: InsuLIN REG 1unit/0.01ml Soln (100units/ml) SC SCH ×4 (06:00→18:00)
[2021-02-23 06:52] LABS: Potassium 3.5 mmol/L (3.5-5.1)
[2021-02-23 07:06] LABS: Albumin 1.8 g/dL (3.4-5.0); BUN/Creatinine Ratio 35.2; Bilirubin, Total 1.1 mg/dL (0.2-1.0); CRP High Sensitivity 3.71 mg/dL (< 0.3); Calcium 8.3 mg/dL (8.5-10.1); Magnesium 2.3 mg/dL (1.6-2.6); Phosphorus 3.5 mg/dL (2.5-4.90); Total Protein 5.7 g/dL (6.4-8.2)
[2021-02-23] MEDS: Ensure Enlive Strawberry 8oz Bottle PO SCH ×2 (08:00→18:00)
[2021-02-23 09:13] LABS: Urine Bacteria NONE SEEN /hpf (None Seen); Urine Blood 1+ /uL (Negative); Urine Specific Gravity 1.018 (1.001-1.035); Urine WBC 8 /hpf (0 - 5)
[2021-02-23 09:19] LABS: Creatinine, Urine 67 mg/dL (30.0-125.0); Protein, Urine 112.2 mg/dL (0.0-11.9); Sodium Urine < 5 mmol/L (40-220)
[2021-02-23] MEDS: POTASSIUM CHL 20 Meq TABLET PO SCH ×2 (10:00→22:21)
[2021-02-23] MEDS: amLODIPine BESYLATE 5 MG TAB PO SCH (10:00)
[2021-02-23] MEDS ORDERED: FUROSEMIDE 20 MG/2 ML VIAL IV ONE (11:15)
[2021-02-23] MEDS ORDERED: FUROSEMIDE 20 MG/2 ML VIAL ONE (11:16)
[2021-02-23] MEDS: LEVOTHYROXINE SODIUM 100 MCG/5 ML INJ IV SCH (11:20)
[2021-02-23] MEDS: FAMOTIDINE (10MG/ML) 2ML VL IV SCH ×2 (11:20→22:00)
[2021-02-23] MEDS: ENOXAPARIN SOD 60 MG/0.6 ML SYRINGE SC SCH (11:21)
[2021-02-23] MEDS: ZINC SULFATE 220mg CAP or TAB PO SCH (11:22)
[2021-02-23] MEDS: CHOLECALCIFEROL (VITD3) 2,000 UNIT CAP/TAB PO SCH (11:22)
[2021-02-23] MEDS: ASCORBIC ACID 1,000 MG TAB PO SCH (11:23)
[2021-02-23] MEDS: DexAMETHasone SOD PHOS 10MG/1ML VIAL INJ IV SCH (11:26)
[2021-02-23] MEDS ORDERED: TPN PER PHARMACY 0 ML IV SCH (11:45)
[2021-02-23] MEDS ORDERED: POTASSIUM CHL 20MEQ/100ML 100 ML IV ONE (12:45)
[2021-02-23] MEDS: PROPOFOL 100 ML IV SCH ×2 (13:18→20:00)
[2021-02-23] MEDS: fentaNYL Drip 2500mCg/250mlNS 250 ML IV SCH ×2 (15:45→23:00)
[2021-02-23] MEDS ORDERED: TPN PER PHARMACY IV NR ×9 (20:00)
[2021-02-23] MEDS: NOREPINEPHRINE 8 MG/250ML KIT 250 ML IV SCH (20:00)
[2021-02-24] VITALS (103 sets, daily range): BP systolic 82–148; BP diastolic 40–80
[2021-02-24] MEDS: MEROPENEM 1GM IVPB 100 ML IV SCH ×2 (02:00→13:31)
[2021-02-24 05:20] LABS: Calcium 8.2 mg/dL (8.5-10.1); Magnesium 2.5 mg/dL (1.6-2.6); Potassium 4.4 mmol/L (3.5-5.1)
[2021-02-24 05:24] LABS: Bilirubin, Total 0.9 mg/dL (0.2-1.0); Phosphorus 3.9 mg/dL (2.5-4.90); Total Protein 6.4 g/dL (6.4-8.2)
[2021-02-24] MEDS: InsuLIN REG 1unit/0.01ml Soln (100units/ml) SC SCH ×4 (06:00→17:34)
[2021-02-24] MEDS: ACCU-CHEK COMFORT CURVE STRIP VI SCH ×4 (06:00→17:34)
[2021-02-24] MEDS ORDERED: SODIUM BICARBONATE 8.4 % INJ 50ML VIAL IV ONE (07:45)
[2021-02-24] MEDS: Ensure Enlive Strawberry 8oz Bottle PO SCH ×2 (08:00→17:35)
[2021-02-24] MEDS: fentaNYL Drip 2500mCg/250mlNS 250 ML IV SCH ×2 (09:09→21:00)
[2021-02-24] MEDS: ZINC SULFATE 220mg CAP or TAB PO SCH (09:54)
[2021-02-24] MEDS: CHOLECALCIFEROL (VITD3) 2,000 UNIT CAP/TAB PO SCH (09:54)
[2021-02-24] MEDS: DexAMETHasone SOD PHOS 10MG/1ML VIAL INJ IV SCH (09:54)
[2021-02-24] MEDS: ASCORBIC ACID 1,000 MG TAB PO SCH (09:54)
[2021-02-24] MEDS: POTASSIUM CHL 20 Meq TABLET PO SCH ×2 (09:54→21:54)
[2021-02-24] MEDS: LEVOTHYROXINE SODIUM 100 MCG/5 ML INJ IV SCH (09:54)
[2021-02-24] MEDS: amLODIPine BESYLATE 5 MG TAB PO SCH (09:55)
[2021-02-24] MEDS: PROPOFOL 100 ML IV SCH ×3 (09:55→21:00)
[2021-02-24] MEDS: FAMOTIDINE (10MG/ML) 2ML VL IV SCH (10:00)
[2021-02-24] MEDS ORDERED: TPN PER PHARMACY 0 ML IV SCH (10:15)
[2021-02-24] MEDS ORDERED: FUROSEMIDE 40 MG/4 ML VIAL IV ONE (13:15)
[2021-02-24] MEDS: IVERMECTIN 3 MG TAB PO SCH (14:22)
[2021-02-24] MEDS ORDERED: TPN PER PHARMACY IV NR ×8 (20:00)
[2021-02-24] MEDS: BUDESONIDE (INHALATION) 0.5 MG/2 ML NEB NEB SCH (22:13)
[2021-02-24] MEDS: ALBUTEROL SULF 2.5 MG/0.5ML(0.5%) NEB SOLN NEB PRN (22:13)
[2021-02-25] VITALS (107 sets, daily range): BP systolic 91–136; BP diastolic 41–73
[2021-02-25] MEDS: MEROPENEM 1GM IVPB 100 ML IV SCH ×2 (02:00→14:39)
[2021-02-25] MEDS: NOREPINEPHRINE 8 MG/250ML KIT 250 ML IV SCH (04:00)
[2021-02-25] MEDS: ACCU-CHEK COMFORT CURVE STRIP VI SCH ×4 (06:00→18:31)
[2021-02-25] MEDS: InsuLIN REG 1unit/0.01ml Soln (100units/ml) SC SCH ×4 (06:00→18:31)
[2021-02-25 06:08] LABS: Potassium 3.8 mmol/L (3.5-5.1)
[2021-02-25 06:19] LABS: Albumin 1.8 g/dL (3.4-5.0); BUN/Creatinine Ratio 66.7; Bilirubin, Total 0.7 mg/dL (0.2-1.0); Calcium 8.4 mg/dL (8.5-10.1); Magnesium 2.6 mg/dL (1.6-2.6); Phosphorus 2.9 mg/dL (2.5-4.90); Pre Albumin 16.3 mg/dL (20.0-40.0); Total Protein 5.7 g/dL (6.4-8.2)
[2021-02-25] MEDS: PROPOFOL 100 ML IV SCH ×3 (06:20→23:24)
[2021-02-25] MEDS: BUDESONIDE (INHALATION) 0.5 MG/2 ML NEB NEB SCH ×2 (06:42→22:58)
[2021-02-25] MEDS: ALBUTEROL SULF 2.5 MG/0.5ML(0.5%) NEB SOLN NEB PRN ×2 (06:42→22:58)
[2021-02-25] MEDS: Ensure Enlive Strawberry 8oz Bottle PO SCH ×2 (08:00→18:00)
[2021-02-25] MEDS: fentaNYL Drip 2500mCg/250mlNS 250 ML IV SCH ×2 (08:49→21:00)
[2021-02-25] MEDS: FAMOTIDINE (10MG/ML) 2ML VL IV SCH (09:15)
[2021-02-25] MEDS: LEVOTHYROXINE SODIUM 100 MCG/5 ML INJ IV SCH (09:15)
[2021-02-25] MEDS: ASCORBIC ACID 1,000 MG TAB PO SCH (09:16)
[2021-02-25] MEDS: IVERMECTIN 3 MG TAB PO SCH (09:16)
[2021-02-25] MEDS: ZINC SULFATE 220mg CAP or TAB PO SCH (09:16)
[2021-02-25] MEDS: CHOLECALCIFEROL (VITD3) 2,000 UNIT CAP/TAB PO SCH (09:16)
[2021-02-25] MEDS: DexAMETHasone SOD PHOS 10MG/1ML VIAL INJ IV SCH (09:16)
[2021-02-25] MEDS ORDERED: IVERMECTIN 3 MG TAB PO SCH (10:00)
[2021-02-25] MEDS: amLODIPine BESYLATE 5 MG TAB PO SCH (10:00)
[2021-02-25] MEDS ORDERED: MIDAZOLAM DRIP 50 mg/50mL 50 ML IV ONE (11:56)
[2021-02-25] MEDS: MIDAZOLAM DRIP 50 mg/50mL 50 ML IV SCH ×2 (12:29→14:41)
[2021-02-25] MEDS ORDERED: TPN PER PHARMACY IV NR ×7 (20:00)
[2021-02-25] MEDS ORDERED: ENOXAPARIN SOD 60 MG/0.6 ML SYRINGE SC SCH (22:00)
[2021-02-25] MEDS: PANTOPRAZOLE 40 MG/10 ML VIAL INJ IV SCH (22:00)
[2021-02-26] VITALS (107 sets, daily range): BP systolic 96–137; BP diastolic 43–80
[2021-02-26] MEDS: ACCU-CHEK COMFORT CURVE STRIP VI SCH ×4 (00:18→18:01)
[2021-02-26] MEDS: InsuLIN REG 1unit/0.01ml Soln (100units/ml) SC SCH ×5 (00:18→18:55)
[2021-02-26] MEDS: MEROPENEM 1GM IVPB 100 ML IV SCH ×2 (02:00→14:20)
[2021-02-26 05:39] LABS: Basophils # (auto) 0 10 ^3/uL (0-0.2); Basophils % (auto) 0.6 % (0.0-2.0); Eosinophils # (auto) 0.1 10 ^3/uL (0-0.8); Eosinophils % (auto) 0.9 % (0.0-7.0); Hematocrit 26.8 % (36.0-46.0); Hemoglobin 8.5 g/dL (12.2-16.2); Lymphocytes # (auto) 1.3 10 ^3/uL (0.4-5.4); Mean Corpuscular Hgb Conc. 31.6 g/dL (32.0-36.0); Mean Corpuscular Volume 88.7 fL (80.0-100.0); Monocytes # (auto) 0.6 10 ^3/uL (0-1.3); Monocytes % (auto) 8.9 % (0.0-12.0); Neutrophils # (auto) 4.3 10 ^3/uL (1.6-8.6); Neutrophils % (auto) 68.6 % (37.0-80.0); Nucleated Red Blood Cells % 0.4 %; Red Blood Cells 3.02 10^6/uL (4.0-5.20); White Blood Cell 6.3 10^3/uL (4.4-10.8)
[2021-02-26 05:53] LABS: Albumin 1.9 g/dL (3.4-5.0); Calcium 8.6 mg/dL (8.5-10.1); Magnesium 2.4 mg/dL (1.6-2.6); Potassium 4.3 mmol/L (3.5-5.1)
[2021-02-26 06:02] LABS: BUN/Creatinine Ratio 68.6; Bilirubin, Total 0.8 mg/dL (0.2-1.0); CRP High Sensitivity 2.44 mg/dL (< 0.3); Phosphorus 2.7 mg/dL (2.5-4.90)
[2021-02-26] MEDS: BUDESONIDE (INHALATION) 0.5 MG/2 ML NEB NEB SCH ×2 (06:52→20:08)
[2021-02-26] MEDS: ALBUTEROL SULF 2.5 MG/0.5ML(0.5%) NEB SOLN NEB PRN ×2 (06:52→20:08)
[2021-02-26] MEDS: fentaNYL Drip 2500mCg/250mlNS 250 ML IV SCH ×3 (07:21→21:46)
[2021-02-26] MEDS: Ensure Enlive Strawberry 8oz Bottle PO SCH ×2 (08:00→18:00)
[2021-02-26] MEDS: amLODIPine BESYLATE 5 MG TAB PO SCH (09:19)
[2021-02-26] MEDS ORDERED: FUROSEMIDE 40 MG/4 ML VIAL ONE (09:29)
[2021-02-26] MEDS ORDERED: FUROSEMIDE 40 MG/4 ML VIAL IV ONE ×2 (09:30→20:00)
[2021-02-26] MEDS: LEVOTHYROXINE SODIUM 100 MCG/5 ML INJ IV SCH (09:32)
[2021-02-26] MEDS: PANTOPRAZOLE 40 MG/10 ML VIAL INJ IV SCH ×2 (09:32→21:03)
[2021-02-26] MEDS: CHOLECALCIFEROL (VITD3) 2,000 UNIT CAP/TAB PO SCH (09:33)
[2021-02-26] MEDS: ASCORBIC ACID 1,000 MG TAB PO SCH (09:33)
[2021-02-26] MEDS: ZINC SULFATE 220mg CAP or TAB PO SCH (09:33)
[2021-02-26] MEDS: DexAMETHasone SOD PHOS 10MG/1ML VIAL INJ IV SCH (09:33)
[2021-02-26] MEDS: IVERMECTIN 3 MG TAB PO SCH (09:34)
[2021-02-26] MEDS: PROPOFOL 100 ML IV SCH ×2 (14:20→21:47)
[2021-02-26] MEDS: NOREPINEPHRINE 8 MG/250ML KIT 250 ML IV SCH (18:45)
[2021-02-26] MEDS ORDERED: MAGNESIUM SULF IV ONE ×8 (20:00)
[2021-02-26] MEDS ORDERED: SODIUM ACETATE IV ONE ×8 (20:00)
[2021-02-26] MEDS ORDERED: [UNRECOGNIZED DRUG - OTHER] IV ONE ×8 (20:00)
[2021-02-26] MEDS ORDERED: POTASSIUM PHOSPHATE IV ONE ×8 (20:00)
[2021-02-26] MEDS: MIDAZOLAM DRIP 50 mg/50mL 50 ML IV SCH (21:47)
[2021-02-27] VITALS (97 sets, daily range): BP systolic 78–191; BP diastolic 43–90
[2021-02-27] MEDS: InsuLIN REG 1unit/0.01ml Soln (100units/ml) SC SCH ×4 (00:23→18:01)
[2021-02-27] MEDS: ACCU-CHEK COMFORT CURVE STRIP VI SCH ×4 (00:24→18:01)
[2021-02-27] MEDS: MEROPENEM 1GM IVPB 100 ML IV SCH ×2 (01:41→14:30)
[2021-02-27] MEDS: PROPOFOL 100 ML IV SCH ×4 (03:01→22:30)
[2021-02-27] MEDS: NOREPINEPHRINE 8 MG/250ML KIT 250 ML IV SCH (04:56)
[2021-02-27 05:48] LABS: Basophils # (auto) 0 10 ^3/uL (0-0.2); Basophils % (auto) 0.2 % (0.0-2.0); Eosinophils # (auto) 0 10 ^3/uL (0-0.8); Eosinophils % (auto) 0.4 % (0.0-7.0); Hematocrit 27.1 % (36.0-46.0); Hemoglobin 8.6 g/dL (12.2-16.2); Lymphocytes # (auto) 1.4 10 ^3/uL (0.4-5.4); Lymphocytes % (auto) 20.2 % (10.0-50.0); Mean Corpuscular Hemoglobin 28.2 pg (28.0-32.0); Mean Corpuscular Hgb Conc. 31.9 g/dL (32.0-36.0); Mean Corpuscular Volume 88.5 fL (80.0-100.0); Monocytes # (auto) 0.6 10 ^3/uL (0-1.3); Monocytes % (auto) 8.5 % (0.0-12.0); Neutrophils # (auto) 4.9 10 ^3/uL (1.6-8.6); Neutrophils % (auto) 70.7 % (37.0-80.0); Nucleated Red Blood Cells % 0.4 %; Red Blood Cells 3.06 10^6/uL (4.0-5.20); Red Cell Distribution Width 19.7 % (11.8-14.3); White Blood Cell 6.9 10^3/uL (4.4-10.8)
[2021-02-27 06:14] LABS: Potassium 4.2 mmol/L (3.5-5.1)
[2021-02-27 06:21] LABS: Albumin 1.9 g/dL (3.4-5.0); BUN/Creatinine Ratio 79.4; Bilirubin, Total 0.8 mg/dL (0.2-1.0); Calcium 8.5 mg/dL (8.5-10.1); Magnesium 2.6 mg/dL (1.6-2.6); Phosphorus 3.1 mg/dL (2.5-4.90); Total Protein 6.1 g/dL (6.4-8.2)
[2021-02-27] MEDS: Ensure Enlive Strawberry 8oz Bottle PO SCH (07:49)
[2021-02-27] MEDS: amLODIPine BESYLATE 5 MG TAB PO SCH (07:50)
[2021-02-27] MEDS: MIDAZOLAM DRIP 50 mg/50mL 50 ML IV SCH (08:00)
[2021-02-27] MEDS: BARICITINIB PO SCH (10:00)
[2021-02-27] MEDS: BUDESONIDE (INHALATION) 0.5 MG/2 ML NEB NEB SCH ×2 (10:00→22:05)
[2021-02-27] MEDS: CHOLECALCIFEROL (VITD3) 2,000 UNIT CAP/TAB PO SCH (10:00)
[2021-02-27] MEDS: ASCORBIC ACID 1,000 MG TAB PO SCH (10:00)
[2021-02-27] MEDS: ZINC SULFATE 220mg CAP or TAB PO SCH (10:29)
[2021-02-27] MEDS: LEVOTHYROXINE SODIUM 100 MCG/5 ML INJ IV SCH (10:29)
[2021-02-27] MEDS: DexAMETHasone SOD PHOS 10MG/1ML VIAL INJ IV SCH (10:29)
[2021-02-27] MEDS: PANTOPRAZOLE 40 MG/10 ML VIAL INJ IV SCH ×2 (10:29→22:13)
[2021-02-27] MEDS: IVERMECTIN 3 MG TAB PO SCH (10:29)
[2021-02-27] MEDS: fentaNYL Drip 2500mCg/250mlNS 250 ML IV SCH (11:21)
[2021-02-27] MEDS ORDERED: DEXTROSE (50%) 50ML SYRG IV PRN (16:15)
[2021-02-27] MEDS ORDERED: TPN PER PHARMACY IV NR ×7 (20:00)
[2021-02-27] MEDS ORDERED: FUROSEMIDE 40 MG/4 ML VIAL IV ONE (21:00)
[2021-02-27] MEDS: ALBUTEROL SULF 2.5 MG/0.5ML(0.5%) NEB SOLN NEB PRN (22:05)
[2021-02-28] VITALS (101 sets, daily range): BP systolic 82–152; BP diastolic 36–83
[2021-02-28] MEDS: ACCU-CHEK COMFORT CURVE STRIP VI SCH ×4 (00:26→17:32)
[2021-02-28] MEDS: MEROPENEM 1GM IVPB 100 ML IV SCH ×2 (02:00→14:04)
[2021-02-28] MEDS: fentaNYL Drip 2500mCg/250mlNS 250 ML IV SCH ×2 (05:56→21:53)
[2021-02-28] MEDS: InsuLIN REG 1unit/0.01ml Soln (100units/ml) SC SCH ×4 (06:00→18:00)
[2021-02-28] MEDS: NOREPINEPHRINE 8 MG/250ML KIT 250 ML IV SCH (07:19)
[2021-02-28 07:41] LABS: BUN/Creatinine Ratio 88.1; Calcium 8.9 mg/dL (8.5-10.1); Magnesium 2.7 mg/dL (1.6-2.6); Phosphorus 3.8 mg/dL (2.5-4.90); Potassium 4.8 mmol/L (3.5-5.1)
[2021-02-28 07:45] LABS: Basophils # (auto) 0 10 ^3/uL (0-0.2); Basophils % (auto) 0.4 % (0.0-2.0); Eosinophils # (auto) 0 10 ^3/uL (0-0.8); Eosinophils % (auto) 0.3 % (0.0-7.0); Hematocrit 27.7 % (36.0-46.0); Hemoglobin 8.8 g/dL (12.2-16.2); Lymphocytes # (auto) 1.5 10 ^3/uL (0.4-5.4); Lymphocytes % (auto) 21.3 % (10.0-50.0); Mean Corpuscular Hemoglobin 28.6 pg (28.0-32.0); Mean Corpuscular Hgb Conc. 31.8 g/dL (32.0-36.0); Mean Corpuscular Volume 89.9 fL (80.0-100.0); Monocytes # (auto) 0.6 10 ^3/uL (0-1.3); Monocytes % (auto) 8.8 % (0.0-12.0); Neutrophils % (auto) 69.2 % (37.0-80.0); Nucleated Red Blood Cells % 0.4 %; Red Blood Cells 3.09 10^6/uL (4.0-5.20); Red Cell Distribution Width 20.8 % (11.8-14.3); White Blood Cell 7.3 10^3/uL (4.4-10.8)
[2021-02-28] MEDS: BUDESONIDE (INHALATION) 0.5 MG/2 ML NEB NEB SCH ×2 (08:49→19:29)
[2021-02-28] MEDS: ALBUTEROL SULF 2.5 MG/0.5ML(0.5%) NEB SOLN NEB PRN ×2 (08:49→19:29)
[2021-02-28] MEDS: amLODIPine BESYLATE 5 MG TAB PO SCH (09:12)
[2021-02-28] MEDS: PANTOPRAZOLE 40 MG/10 ML VIAL INJ IV SCH ×2 (09:51→21:52)
[2021-02-28] MEDS: LEVOTHYROXINE SODIUM 100 MCG/5 ML INJ IV SCH (09:51)
[2021-02-28] MEDS: DexAMETHasone SOD PHOS 10MG/1ML VIAL INJ IV SCH (09:51)
[2021-02-28] MEDS: IVERMECTIN 3 MG TAB PO SCH (09:52)
[2021-02-28] MEDS: ASCORBIC ACID 1,000 MG TAB PO SCH (09:52)
[2021-02-28] MEDS: CHOLECALCIFEROL (VITD3) 2,000 UNIT CAP/TAB PO SCH (09:52)
[2021-02-28] MEDS: ZINC SULFATE 220mg CAP or TAB PO SCH (09:52)
[2021-02-28] MEDS: BARICITINIB PO SCH (09:52)
[2021-03-01] VITALS (104 sets, daily range): BP systolic 87–189; BP diastolic 7–102
[2021-03-01] MEDS: MEROPENEM 1GM IVPB 100 ML IV SCH ×2 (03:12→15:00)
[2021-03-01] MEDS: InsuLIN REG 1unit/0.01ml Soln (100units/ml) SC SCH ×5 (05:59→18:18)
[2021-03-01] MEDS: ACCU-CHEK COMFORT CURVE STRIP VI SCH ×5 (05:59→18:18)
[2021-03-01] MEDS: PROPOFOL 100 ML IV SCH ×3 (08:00→23:38)
[2021-03-01] MEDS: ALBUTEROL SULF 2.5 MG/0.5ML(0.5%) NEB SOLN NEB PRN ×2 (08:07→22:58)
[2021-03-01] MEDS: BUDESONIDE (INHALATION) 0.5 MG/2 ML NEB NEB SCH ×2 (08:07→22:58)
[2021-03-01 09:00] LABS: BUN/Creatinine Ratio 110.3; Calcium 9.5 mg/dL (8.5-10.1); Potassium 4.8 mmol/L (3.5-5.1)
[2021-03-01] MEDS: LEVOTHYROXINE SODIUM 100 MCG/5 ML INJ IV SCH (10:00)
[2021-03-01] MEDS: BARICITINIB PO SCH (10:00)
[2021-03-01] MEDS: PANTOPRAZOLE 40 MG/10 ML VIAL INJ IV SCH ×2 (10:00→22:24)
[2021-03-01] MEDS ORDERED: DexAMETHasone SOD PHOS 4 MG/1ML SDV INJ IV SCH (10:00)
[2021-03-01] MEDS: IVERMECTIN 3 MG TAB PO SCH (10:00)
[2021-03-01] MEDS: amLODIPine BESYLATE 5 MG TAB PO SCH (10:00)
[2021-03-01] MEDS: CHOLECALCIFEROL (VITD3) 2,000 UNIT CAP/TAB PO SCH (10:00)
[2021-03-01] MEDS: ASCORBIC ACID 1,000 MG TAB PO SCH (10:00)
[2021-03-01] MEDS ORDERED: D5W 5% 1,000 ML IV SCH (10:30)
[2021-03-01] MEDS: MIDAZOLAM DRIP 50 mg/50mL 50 ML IV SCH (11:28)
[2021-03-01] MEDS: fentaNYL Drip 2500mCg/250mlNS 250 ML IV SCH (12:36)
[2021-03-01] MEDS: METOCLOPRAMIDE HCL 5MG/ml INJ 2ml VIAL IV SCH ×2 (14:15→22:25)
[2021-03-01] MEDS: D5W 5% 1,000 ML IV SCH (15:45)
[2021-03-01] MEDS: NOREPINEPHRINE 8 MG/250ML KIT 250 ML IV SCH (18:19)
[2021-03-01] MEDS: Glucerna 1.2 Cal 1Liter BOTTLE GT SCH (22:00)
[2021-03-02] VITALS (105 sets, daily range): BP systolic 76–179; BP diastolic 46–139
[2021-03-02] MEDS: ACCU-CHEK COMFORT CURVE STRIP VI SCH ×3 (00:12→12:25)
[2021-03-02] MEDS: InsuLIN REG 1unit/0.01ml Soln (100units/ml) SC SCH ×3 (00:12→12:27)
[2021-03-02] MEDS: MEROPENEM 1GM IVPB 100 ML IV SCH ×3 (02:20→22:18)
[2021-03-02] MEDS: METOCLOPRAMIDE HCL 5MG/ml INJ 2ml VIAL IV SCH ×3 (05:35→22:18)
[2021-03-02] MEDS: D5W 5% 1,000 ML IV SCH ×3 (06:00→19:26)
[2021-03-02] MEDS: ALBUTEROL SULF 2.5 MG/0.5ML(0.5%) NEB SOLN NEB PRN ×2 (06:21→21:58)
[2021-03-02] MEDS: BUDESONIDE (INHALATION) 0.5 MG/2 ML NEB NEB SCH ×2 (06:22→21:58)
[2021-03-02 06:56] LABS: Basophils # (auto) 0 10 ^3/uL (0-0.2); Basophils % (auto) 0.3 % (0.0-2.0); Eosinophils # (auto) 0 10 ^3/uL (0-0.8); Eosinophils % (auto) 0.4 % (0.0-7.0); Hematocrit 26.1 % (36.0-46.0); Hemoglobin 8.9 g/dL (12.2-16.2); Lymphocytes # (auto) 1.2 10 ^3/uL (0.4-5.4); Lymphocytes % (auto) 16.1 % (10.0-50.0); Mean Corpuscular Hemoglobin 31.1 pg (28.0-32.0); Mean Corpuscular Hgb Conc. 33.9 g/dL (32.0-36.0); Mean Corpuscular Volume 91.6 fL (80.0-100.0); Monocytes # (auto) 0.5 10 ^3/uL (0-1.3); Monocytes % (auto) 6.6 % (0.0-12.0); Neutrophils # (auto) 5.6 10 ^3/uL (1.6-8.6); Neutrophils % (auto) 76.6 % (37.0-80.0); Nucleated Red Blood Cells % 0.4 %; Red Blood Cells 2.85 10^6/uL (4.0-5.20); Red Cell Distribution Width 20.7 % (11.8-14.3); White Blood Cell 7.3 10^3/uL (4.4-10.8)
[2021-03-02 07:12] LABS: Potassium 4.4 mmol/L (3.5-5.1)
[2021-03-02 07:26] LABS: BUN/Creatinine Ratio 111.7; CRP High Sensitivity 2.3 mg/dL (< 0.3)
[2021-03-02] MEDS: fentaNYL Drip 2500mCg/250mlNS 250 ML IV SCH ×2 (09:59→19:22)
[2021-03-02] MEDS: PROPOFOL 100 ML IV SCH ×3 (10:00→19:23)
[2021-03-02] MEDS: BARICITINIB PO SCH (10:00)
[2021-03-02] MEDS: LEVOTHYROXINE SODIUM 100 MCG/5 ML INJ IV SCH (10:43)
[2021-03-02] MEDS: PANTOPRAZOLE 40 MG/10 ML VIAL INJ IV SCH ×2 (10:44→22:18)
[2021-03-02] MEDS: IVERMECTIN 3 MG TAB PO SCH (10:45)
[2021-03-02] MEDS: amLODIPine BESYLATE 5 MG TAB PO SCH (10:46)
[2021-03-02] MEDS ORDERED: ROCURONIUM 10MG/ML 10ML VIAL IV ONE (12:15)
[2021-03-02] MEDS: FREE WATER GT SCH ×3 (14:39→22:19)
[2021-03-02] MEDS: Glucerna 1.2 Cal 1Liter BOTTLE GT SCH (22:00)
[2021-03-02] MEDS ORDERED: FUROSEMIDE 40 MG/4 ML VIAL IV ONE (22:45)
[2021-03-02] MEDS: NOREPINEPHRINE 8 MG/250ML KIT 250 ML IV SCH (23:00)
[2021-03-03] VITALS (100 sets, daily range): BP systolic 98–138; BP diastolic 49–79
[2021-03-03] MEDS: PROPOFOL 100 ML IV SCH ×4 (01:00→21:52)
[2021-03-03] MEDS: FREE WATER GT SCH ×6 (02:25→22:09)
[2021-03-03 05:09] LABS: Eosinophils # (auto) 0.1 10 ^3/uL (0-0.8); Monocytes # (auto) 0.6 10 ^3/uL (0-1.3)
[2021-03-03 05:11] LABS: Basophils # (auto) 0 10 ^3/uL (0-0.2); Basophils % (auto) 0.3 % (0.0-2.0); Eosinophils % (auto) 0.7 % (0.0-7.0); Hematocrit 27.8 % (36.0-46.0); Hemoglobin 8.9 g/dL (12.2-16.2); Lymphocytes # (auto) 2.2 10 ^3/uL (0.4-5.4); Lymphocytes % (auto) 17.2 % (10.0-50.0); Mean Corpuscular Hemoglobin 28.6 pg (28.0-32.0); Mean Corpuscular Hgb Conc. 31.9 g/dL (32.0-36.0); Mean Corpuscular Volume 89.8 fL (80.0-100.0); Neutrophils # (auto) 9.8 10 ^3/uL (1.6-8.6); Neutrophils % (auto) 76.8 % (37.0-80.0); Nucleated Red Blood Cells % 0.3 %; White Blood Cell 12.8 10^3/uL (4.4-10.8)
[2021-03-03 05:17] LABS: Red Cell Distribution Width 20.5 % (11.8-14.3)
[2021-03-03 05:33] LABS: Potassium 4.2 mmol/L (3.5-5.1)
[2021-03-03 05:35] LABS: BUN/Creatinine Ratio 91.4
[2021-03-03] MEDS: ACCU-CHEK COMFORT CURVE STRIP VI SCH ×4 (06:00→21:57)
[2021-03-03] MEDS: InsuLIN REG 1unit/0.01ml Soln (100units/ml) SC SCH ×4 (06:00→18:00)
[2021-03-03] MEDS: MEROPENEM 1GM IVPB 100 ML IV SCH ×2 (06:11→17:41)
[2021-03-03] MEDS: METOCLOPRAMIDE HCL 5MG/ml INJ 2ml VIAL IV SCH ×3 (06:11→22:09)
[2021-03-03] MEDS: ALBUTEROL SULF 2.5 MG/0.5ML(0.5%) NEB SOLN NEB PRN ×2 (08:02→20:27)
[2021-03-03] MEDS: BUDESONIDE (INHALATION) 0.5 MG/2 ML NEB NEB SCH ×2 (08:02→20:27)
[2021-03-03] MEDS: MIDAZOLAM DRIP 50 mg/50mL 50 ML IV SCH ×5 (08:37→20:00)
[2021-03-03] MEDS: amLODIPine BESYLATE 5 MG TAB PO SCH (09:00)
[2021-03-03] MEDS: IVERMECTIN 3 MG TAB PO SCH (09:01)
[2021-03-03] MEDS: LEVOTHYROXINE SODIUM 100 MCG/5 ML INJ IV SCH (09:01)
[2021-03-03] MEDS: PANTOPRAZOLE 40 MG/10 ML VIAL INJ IV SCH ×2 (09:01→22:09)
[2021-03-03] MEDS: BARICITINIB PO SCH (10:00)
[2021-03-03] MEDS: D5W 5% 1,000 ML IV SCH ×2 (12:40→20:00)
[2021-03-03] MEDS: fentaNYL Drip 2500mCg/250mlNS 250 ML IV SCH ×2 (13:46→21:00)
[2021-03-03] MEDS: NOREPINEPHRINE 8 MG/250ML KIT 250 ML IV SCH ×2 (18:45→20:00)
[2021-03-03] MEDS: Glucerna 1.2 Cal 1Liter BOTTLE GT SCH (20:00)
[2021-03-04] VITALS (104 sets, daily range): BP systolic 81–113; BP diastolic 44–71
[2021-03-04] MEDS: ACCU-CHEK COMFORT CURVE STRIP VI SCH ×4 (00:04→18:39)
[2021-03-04] MEDS: MIDAZOLAM DRIP 50 mg/50mL 50 ML IV SCH ×4 (01:00→18:50)
[2021-03-04] MEDS: FREE WATER GT SCH ×6 (02:00→21:44)
[2021-03-04] MEDS: MEROPENEM 1GM IVPB 100 ML IV SCH ×2 (06:00→18:49)
[2021-03-04] MEDS: METOCLOPRAMIDE HCL 5MG/ml INJ 2ml VIAL IV SCH ×3 (06:00→21:45)
[2021-03-04] MEDS: InsuLIN REG 1unit/0.01ml Soln (100units/ml) SC SCH ×4 (06:00→18:00)
[2021-03-04] MEDS: ALBUTEROL SULF 2.5 MG/0.5ML(0.5%) NEB SOLN NEB PRN ×2 (06:36→22:10)
[2021-03-04] MEDS: BUDESONIDE (INHALATION) 0.5 MG/2 ML NEB NEB SCH ×2 (06:37→22:10)
[2021-03-04 06:43] LABS: Basophils # (auto) 0.1 10 ^3/uL (0-0.2); Eosinophils # (auto) 0.2 10 ^3/uL (0-0.8); Monocytes % (auto) 3.2 % (0.0-12.0)
[2021-03-04 06:47] LABS: Basophils % (auto) 0.5 % (0.0-2.0); Eosinophils % (auto) 1.1 % (0.0-7.0); Hematocrit 25.4 % (36.0-46.0); Hemoglobin 8.5 g/dL (12.2-16.2); Lymphocytes # (auto) 2.7 10 ^3/uL (0.4-5.4); Lymphocytes % (auto) 15.8 % (10.0-50.0); Mean Corpuscular Hemoglobin 31.3 pg (28.0-32.0); Mean Corpuscular Hgb Conc. 33.5 g/dL (32.0-36.0); Mean Corpuscular Volume 93.5 fL (80.0-100.0); Monocytes # (auto) 0.5 10 ^3/uL (0-1.3); Neutrophils # (auto) 13.6 10 ^3/uL (1.6-8.6); Neutrophils % (auto) 79.4 % (37.0-80.0); Nucleated Red Blood Cells % 0.4 %; Red Blood Cells 2.71 10^6/uL (4.0-5.20); Red Cell Distribution Width 21.5 % (11.8-14.3); White Blood Cell 17.2 10^3/uL (4.4-10.8)
[2021-03-04 07:10] LABS: BUN/Creatinine Ratio 74.6; Calcium 8.2 mg/dL (8.5-10.1); Potassium 4.1 mmol/L (3.5-5.1)
[2021-03-04] MEDS: PROPOFOL 100 ML IV SCH ×5 (07:29→21:46)
[2021-03-04] MEDS: PANTOPRAZOLE 40 MG/10 ML VIAL INJ IV SCH ×2 (09:23→21:45)
[2021-03-04] MEDS: LEVOTHYROXINE SODIUM 100 MCG/5 ML INJ IV SCH (09:24)
[2021-03-04] MEDS: IVERMECTIN 3 MG TAB PO SCH (09:24)
[2021-03-04] MEDS: amLODIPine BESYLATE 5 MG TAB PO SCH (10:00)
[2021-03-04] MEDS: BARICITINIB PO SCH (10:00)
[2021-03-04] MEDS: D5W 5% 1,000 ML IV SCH (13:22)
[2021-03-04] MEDS: fentaNYL Drip 2500mCg/250mlNS 250 ML IV SCH ×2 (13:23→21:46)
[2021-03-04 13:41] LABS: Urine Bacteria FEW /hpf (None Seen); Urine Blood 3+ /uL (Negative); Urine Budding Yeast MODERATE /hpf (None Seen); Urine Specific Gravity 1.023 (1.001-1.035); Urine WBC 545 /hpf (0 - 5); Urine WBC Clumps PRESENT /hpf (None Seen)
[2021-03-04] MEDS: NOREPINEPHRINE 8 MG/250ML KIT 250 ML IV SCH (15:43)
[2021-03-04] MEDS ORDERED: SODIUM CHLORIDE 0.9% 500 ML IV ONE (19:30)
[2021-03-04] MEDS ORDERED: POLYETHYLENE GLYCOL 17 GM PWDR PO ONE (20:00)
[2021-03-04] MEDS: LACTULOSE 20Gm/30ML SOLN PO SCH (21:45)
[2021-03-05] VITALS (103 sets, daily range): BP systolic 63–150; BP diastolic 33–73
[2021-03-05] MEDS: FREE WATER GT SCH ×6 (01:48→22:00)
[2021-03-05] MEDS: D5W 5% 1,000 ML IV SCH ×2 (04:58→18:32)
[2021-03-05 05:23] LABS: Basophils # (auto) 0.1 10 ^3/uL (0-0.2); Basophils % (auto) 0.4 % (0.0-2.0); Eosinophils # (auto) 0.1 10 ^3/uL (0-0.8); Eosinophils % (auto) 0.6 % (0.0-7.0); Hematocrit 27.7 % (36.0-46.0); Hemoglobin 9.3 g/dL (12.2-16.2); Lymphocytes # (auto) 3.3 10 ^3/uL (0.4-5.4); Lymphocytes % (auto) 15.1 % (10.0-50.0); Mean Corpuscular Hemoglobin 31.6 pg (28.0-32.0); Mean Corpuscular Hgb Conc. 33.5 g/dL (32.0-36.0); Monocytes # (auto) 0.8 10 ^3/uL (0-1.3); Monocytes % (auto) 3.4 % (0.0-12.0); Neutrophils # (auto) 17.5 10 ^3/uL (1.6-8.6); Neutrophils % (auto) 80.5 % (37.0-80.0); Nucleated Red Blood Cells % 0.2 %; Red Blood Cells 2.94 10^6/uL (4.0-5.20); White Blood Cell 21.8 10^3/uL (4.4-10.8)
[2021-03-05 05:41] LABS: BUN/Creatinine Ratio 53.5; Calcium 8.1 mg/dL (8.5-10.1); Potassium 4.9 mmol/L (3.5-5.1)
[2021-03-05 05:45] LABS: Red Cell Distribution Width 21.7 % (11.8-14.3)
[2021-03-05] MEDS: ALBUTEROL SULF 2.5 MG/0.5ML(0.5%) NEB SOLN NEB PRN ×2 (05:52→20:42)
[2021-03-05] MEDS: BUDESONIDE (INHALATION) 0.5 MG/2 ML NEB NEB SCH ×2 (05:52→20:42)
[2021-03-05] MEDS: InsuLIN REG 1unit/0.01ml Soln (100units/ml) SC SCH ×4 (06:00→17:51)
[2021-03-05] MEDS: MEROPENEM 1GM IVPB 100 ML IV SCH (06:12)
[2021-03-05] MEDS: METOCLOPRAMIDE HCL 5MG/ml INJ 2ml VIAL IV SCH ×3 (06:12→22:12)
[2021-03-05] MEDS: ACCU-CHEK COMFORT CURVE STRIP VI SCH ×4 (06:12→17:51)
[2021-03-05] MEDS: fentaNYL Drip 2500mCg/250mlNS 250 ML IV SCH ×2 (06:35→13:19)
[2021-03-05] MEDS: BARICITINIB PO SCH (10:00)
[2021-03-05] MEDS: amLODIPine BESYLATE 5 MG TAB PO SCH (10:00)
[2021-03-05] MEDS ORDERED: FUROSEMIDE 100 MG/10ML VIAL IV ONE (10:15)
[2021-03-05] MEDS: PANTOPRAZOLE 40 MG/10 ML VIAL INJ IV SCH ×2 (11:57→22:11)
[2021-03-05] MEDS: IVERMECTIN 3 MG TAB PO SCH (11:58)
[2021-03-05] MEDS: LEVOTHYROXINE SODIUM 100 MCG/5 ML INJ IV SCH (11:58)
[2021-03-05] MEDS: LACTULOSE 20Gm/30ML SOLN PO SCH ×2 (11:58→22:12)
[2021-03-05] MEDS: NOREPINEPHRINE 8 MG/250ML KIT 250 ML IV SCH (12:55)
[2021-03-05] MEDS: MIDAZOLAM DRIP 50 mg/50mL 50 ML IV SCH ×3 (13:20→20:46)
[2021-03-05] MEDS: PROPOFOL 100 ML IV SCH ×3 (13:21→20:45)
[2021-03-05] MEDS: VASOPRESSIN 50 UNITS in D5W 5% 247.5 ML IV SCH (14:11)
[2021-03-05] MEDS: NOREPINEPHRINE BITARTRATE 16 MG in SODIUM CHL 0.9% 234 ML IV SCH (14:43)
[2021-03-05] MEDS ORDERED: MICAFUNGIN SODIUM 100 MG in SODIUM CHL 0.9% 100 ML IV STA (17:11)
[2021-03-05] MEDS ORDERED: HYDROCORTISONE SOD SUCC 100 MG/2ML INJ VIAL IV STA (17:14)
[2021-03-05] MEDS ORDERED: VANCOMYCIN 1GM/250ML 250 ML IV ONE (17:15)
[2021-03-05] MEDS ORDERED: VANCOMYCIN PER PHARMACY 0 MG IV SCH (17:15)
[2021-03-05] MEDS: MICAFUNGIN SODIUM 100 MG in SODIUM CHL 0.9% 100 ML IV SCH (19:39)
[2021-03-05] MEDS: CEFTAZIDIME-AVIBACTAM 2.5gm in D5W 100 ML IV SCH (20:42)
[2021-03-05] MEDS: HYDROCORTISONE SOD SUCC 100 MG/2ML INJ VIAL IV SCH (23:23)
[2021-03-06] VITALS (106 sets, daily range): BP systolic 80–162; BP diastolic 36–87
[2021-03-06] MEDS: InsuLIN REG 1unit/0.01ml Soln (100units/ml) SC SCH ×5 (00:15→23:58)
[2021-03-06] MEDS: ACCU-CHEK COMFORT CURVE STRIP VI SCH ×5 (00:19→23:58)
[2021-03-06] MEDS: fentaNYL Drip 2500mCg/250mlNS 250 ML IV SCH ×3 (00:29→20:54)
[2021-03-06] MEDS: CEFTAZIDIME-AVIBACTAM 2.5gm in D5W 100 ML IV SCH ×2 (02:53→10:00)
[2021-03-06] MEDS: FREE WATER GT SCH ×5 (02:53→17:19)
[2021-03-06] MEDS: METOCLOPRAMIDE HCL 5MG/ml INJ 2ml VIAL IV SCH ×3 (05:56→21:38)
[2021-03-06] MEDS: HYDROCORTISONE SOD SUCC 100 MG/2ML INJ VIAL IV SCH ×4 (05:57→23:59)
[2021-03-06 06:06] LABS: Hematocrit 26.8 % (36.0-46.0); Hemoglobin 9.3 g/dL (12.2-16.2); Mean Corpuscular Hemoglobin 32.7 pg (28.0-32.0); Mean Corpuscular Hgb Conc. 34.9 g/dL (32.0-36.0); Mean Corpuscular Volume 93.5 fL (80.0-100.0); Red Blood Cells 2.86 10^6/uL (4.0-5.20)
[2021-03-06] MEDS: VASOPRESSIN 50 UNITS in D5W 5% 247.5 ML IV SCH (06:15)
[2021-03-06 06:21] LABS: Red Cell Distribution Width 21.7 % (11.8-14.3)
[2021-03-06 06:22] LABS: Basophils % (manual) 0 (0.0-2.0); Blast Cells 0; Eosinophils % (manual) 0 (0-7); Myelocytes % 0; Promyelocytes % 0; Reactive Lymphocytes 0
[2021-03-06 06:28] LABS: Calcium 8.1 mg/dL (8.5-10.1); Potassium 4.9 mmol/L (3.5-5.1)
[2021-03-06 06:31] LABS: BUN/Creatinine Ratio 43.7
[2021-03-06] MEDS: D5W 5% 1,000 ML IV SCH ×2 (06:49→08:30)
[2021-03-06] MEDS: PROPOFOL 100 ML IV SCH (06:51)
[2021-03-06] MEDS: MIDAZOLAM DRIP 50 mg/50mL 50 ML IV SCH (06:51)
[2021-03-06] MEDS: amLODIPine BESYLATE 5 MG TAB PO SCH (09:02)
[2021-03-06] MEDS: LACTULOSE 20Gm/30ML SOLN PO SCH ×2 (10:00→21:38)
[2021-03-06] MEDS: PANTOPRAZOLE 40 MG/10 ML VIAL INJ IV SCH ×2 (10:00→21:37)
[2021-03-06] MEDS: LEVOTHYROXINE SODIUM 100 MCG/5 ML INJ IV SCH (10:00)
[2021-03-06] MEDS: BARICITINIB PO SCH (10:00)
[2021-03-06] MEDS: BUDESONIDE (INHALATION) 0.5 MG/2 ML NEB NEB SCH ×2 (10:00→18:53)
[2021-03-06] MEDS: MICAFUNGIN SODIUM 100 MG in SODIUM CHL 0.9% 100 ML IV SCH (10:00)
[2021-03-06] MEDS: IVERMECTIN 3 MG TAB PO SCH (10:00)
[2021-03-06 10:37] LABS: Band Neutrophils % (manual) 13; Lymphocytes % (manual) 2 (10.0-50.0); Metamyelocytes % 1; Monocytes % (manual) 2 (0-12)
[2021-03-06] MEDS ORDERED: VANCOMYCIN 500 MG in D5W 5% 100 ML IV ONE (11:00)
[2021-03-06] MEDS: NOREPINEPHRINE BITARTRATE 16 MG in SODIUM CHL 0.9% 234 ML IV SCH (13:14)
[2021-03-06] MEDS: ALBUTEROL SULF 2.5 MG/0.5ML(0.5%) NEB SOLN NEB PRN (18:53)
[2021-03-06] MEDS: CEFTAZIDIME AVIBACTAM IV SCH (21:37)
[2021-03-06] MEDS: D5W 5% IV SCH (21:37)
[2021-03-06] MEDS: ENOXAPARIN SOD 80 MG/0.8ML SYRINGE SC SCH (21:38)
[2021-03-07] VITALS (84 sets, daily range): BP systolic 101–208; BP diastolic 49–181
[2021-03-07] MEDS: PROPOFOL 100 ML IV SCH ×5 (01:57→20:28)
[2021-03-07] MEDS: D5W 5% IV SCH ×3 (05:54→21:42)
[2021-03-07] MEDS: CEFTAZIDIME AVIBACTAM IV SCH ×3 (05:54→21:42)
[2021-03-07] MEDS: HYDROCORTISONE SOD SUCC 100 MG/2ML INJ VIAL IV SCH ×3 (05:55→18:00)
[2021-03-07] MEDS: METOCLOPRAMIDE HCL 5MG/ml INJ 2ml VIAL IV SCH ×3 (05:55→21:42)
[2021-03-07] MEDS: InsuLIN REG 1unit/0.01ml Soln (100units/ml) SC SCH ×3 (05:55→18:00)
[2021-03-07] MEDS: ACCU-CHEK COMFORT CURVE STRIP VI SCH ×3 (05:55→18:29)
[2021-03-07] MEDS: VASOPRESSIN 50 UNITS in D5W 5% 247.5 ML IV SCH (05:56)
[2021-03-07 06:02] LABS: Basophils # (auto) 0.1 10 ^3/uL (0-0.2); Basophils % (auto) 0.6 % (0.0-2.0); Eosinophils # (auto) 0 10 ^3/uL (0-0.8); Hematocrit 25.2 % (36.0-46.0); Hemoglobin 8.5 g/dL (12.2-16.2); Lymphocytes # (auto) 1.7 10 ^3/uL (0.4-5.4); Lymphocytes % (auto) 10.5 % (10.0-50.0); Mean Corpuscular Hemoglobin 32.7 pg (28.0-32.0); Mean Corpuscular Hgb Conc. 33.7 g/dL (32.0-36.0); Mean Corpuscular Volume 97.2 fL (80.0-100.0); Monocytes # (auto) 0.7 10 ^3/uL (0-1.3); Monocytes % (auto) 4.1 % (0.0-12.0); Neutrophils # (auto) 13.5 10 ^3/uL (1.6-8.6); Neutrophils % (auto) 84.8 % (37.0-80.0); Nucleated Red Blood Cells % 0.2 %; Red Blood Cells 2.59 10^6/uL (4.0-5.20); Red Cell Distribution Width 22.7 % (11.8-14.3); White Blood Cell 15.9 10^3/uL (4.4-10.8)
[2021-03-07] MEDS: MIDAZOLAM DRIP 50 mg/50mL 50 ML IV SCH ×2 (06:03→19:18)
[2021-03-07] MEDS: NOREPINEPHRINE BITARTRATE 16 MG in SODIUM CHL 0.9% 234 ML IV SCH (06:04)
[2021-03-07] MEDS: ALBUTEROL SULF 2.5 MG/0.5ML(0.5%) NEB SOLN NEB PRN (06:13)
[2021-03-07] MEDS: BUDESONIDE (INHALATION) 0.5 MG/2 ML NEB NEB SCH ×2 (06:14→18:46)
[2021-03-07 06:17] LABS: Calcium 7.9 mg/dL (8.5-10.1); Potassium 4.7 mmol/L (3.5-5.1)
[2021-03-07 06:22] LABS: BUN/Creatinine Ratio 50.4
[2021-03-07] MEDS: VANCOMYCIN 1GM/250ML 250 ML IV SCH (09:11)
[2021-03-07] MEDS: PANTOPRAZOLE 40 MG/10 ML VIAL INJ IV SCH ×2 (09:11→21:42)
[2021-03-07] MEDS: LEVOTHYROXINE SODIUM 100 MCG/5 ML INJ IV SCH (09:11)
[2021-03-07] MEDS: LACTULOSE 20Gm/30ML SOLN PO SCH ×2 (09:12→21:43)
[2021-03-07] MEDS: amLODIPine BESYLATE 5 MG TAB PO SCH (09:12)
[2021-03-07] MEDS: IVERMECTIN 3 MG TAB PO SCH (09:13)
[2021-03-07] MEDS: ENOXAPARIN SOD 80 MG/0.8ML SYRINGE SC SCH ×2 (09:13→21:43)
[2021-03-07] MEDS: BARICITINIB PO SCH (09:53)
[2021-03-07] MEDS: MICAFUNGIN SODIUM 100 MG in SODIUM CHL 0.9% 100 ML IV SCH (10:00)
[2021-03-07] MEDS ORDERED: PHENYLEPHRINE IV 250 ML IV SCH (16:15)
[2021-03-07] MEDS: PHENYLEPHRINE INJ 80 MG in SODIUM CHL 0.9% 242 ML IV SCH (16:45)
[2021-03-07] MEDS: fentaNYL Drip 2500mCg/250mlNS 250 ML IV SCH (19:16)
[2021-03-08] VITALS (102 sets, daily range): BP systolic 96–139; BP diastolic 44–77
[2021-03-08] MEDS: HYDROCORTISONE SOD SUCC 100 MG/2ML INJ VIAL IV SCH ×4 (00:30→18:04)
[2021-03-08] MEDS: ACCU-CHEK COMFORT CURVE STRIP VI SCH ×4 (00:30→18:05)
[2021-03-08] MEDS: InsuLIN REG 1unit/0.01ml Soln (100units/ml) SC SCH ×4 (00:30→18:00)
[2021-03-08] MEDS ORDERED: PHENYLEPHRINE IV 250 ML IV ONE (03:26)
[2021-03-08] MEDS ORDERED: PHENYLEPHRINE HCL 10 MG/ML VL ONE (03:50)
[2021-03-08] MEDS: METOCLOPRAMIDE HCL 5MG/ml INJ 2ml VIAL IV SCH ×3 (06:19→21:44)
[2021-03-08] MEDS: D5W 5% IV SCH ×3 (06:19→21:44)
[2021-03-08] MEDS: CEFTAZIDIME AVIBACTAM IV SCH ×3 (06:19→21:44)
[2021-03-08] MEDS: ALBUTEROL SULF 2.5 MG/0.5ML(0.5%) NEB SOLN NEB PRN ×2 (06:27→19:40)
[2021-03-08] MEDS: BUDESONIDE (INHALATION) 0.5 MG/2 ML NEB NEB SCH ×2 (06:27→19:40)
[2021-03-08 07:14] LABS: Potassium 4.5 mmol/L (3.5-5.1)
[2021-03-08 07:41] LABS: Basophils # (auto) 0.1 10 ^3/uL (0-0.2); Basophils % (auto) 0.9 % (0.0-2.0); Eosinophils # (auto) 0 10 ^3/uL (0-0.8); Hematocrit 24.4 % (36.0-46.0); Hemoglobin 8.2 g/dL (12.2-16.2); Lymphocytes # (auto) 1.2 10 ^3/uL (0.4-5.4); Lymphocytes % (auto) 7.9 % (10.0-50.0); Mean Corpuscular Hemoglobin 31.2 pg (28.0-32.0); Mean Corpuscular Hgb Conc. 33.5 g/dL (32.0-36.0); Monocytes # (auto) 0.7 10 ^3/uL (0-1.3); Monocytes % (auto) 4.8 % (0.0-12.0); Neutrophils # (auto) 12.8 10 ^3/uL (1.6-8.6); Neutrophils % (auto) 86.4 % (37.0-80.0); Nucleated Red Blood Cells % 0.3 %; Red Blood Cells 2.62 10^6/uL (4.0-5.20); Red Cell Distribution Width 22.8 % (11.8-14.3); White Blood Cell 14.8 10^3/uL (4.4-10.8)
[2021-03-08 07:48] LABS: Albumin 1.2 g/dL (3.4-5.0); BUN/Creatinine Ratio 48.7; Bilirubin, Total 1.3 mg/dL (0.2-1.0); CRP High Sensitivity 8.69 mg/dL (< 0.3); Calcium 7.4 mg/dL (8.5-10.1); Magnesium 2.4 mg/dL (1.6-2.6)
[2021-03-08] MEDS: BARICITINIB PO SCH (08:58)
[2021-03-08] MEDS: VANCOMYCIN 1GM/250ML 250 ML IV SCH (09:00)
[2021-03-08] MEDS: PANTOPRAZOLE 40 MG/10 ML VIAL INJ IV SCH ×2 (09:50→21:44)
[2021-03-08] MEDS: LEVOTHYROXINE SODIUM 100 MCG/5 ML INJ IV SCH (09:50)
[2021-03-08] MEDS: IVERMECTIN 3 MG TAB PO SCH (09:51)
[2021-03-08] MEDS: ENOXAPARIN SOD 80 MG/0.8ML SYRINGE SC SCH ×2 (09:51→21:44)
[2021-03-08] MEDS: LACTULOSE 20Gm/30ML SOLN PO SCH ×2 (09:51→21:44)
[2021-03-08] MEDS: MICAFUNGIN SODIUM 100 MG in SODIUM CHL 0.9% 100 ML IV SCH (11:00)
[2021-03-08] MEDS: NOREPINEPHRINE BITARTRATE 16 MG in SODIUM CHL 0.9% 234 ML IV SCH (13:00)
[2021-03-08] MEDS: PHENYLEPHRINE INJ 80 MG in SODIUM CHL 0.9% 242 ML IV SCH (16:45)
[2021-03-08] MEDS: MIDAZOLAM DRIP 50 mg/50mL 50 ML IV SCH (18:00)
[2021-03-08] MEDS: fentaNYL Drip 2500mCg/250mlNS 250 ML IV SCH (19:30)
[2021-03-08] MEDS: PROPOFOL 100 ML IV SCH (19:31)
[2021-03-09] VITALS (98 sets, daily range): BP systolic 92–178; BP diastolic 16–119
[2021-03-09] MEDS: HYDROCORTISONE SOD SUCC 100 MG/2ML INJ VIAL IV SCH ×4 (01:19→18:00)
[2021-03-09] MEDS: ACCU-CHEK COMFORT CURVE STRIP VI SCH ×4 (01:19→18:00)
[2021-03-09] MEDS: PROPOFOL 100 ML IV SCH ×3 (03:52→22:10)
[2021-03-09 05:22] LABS: Basophils # (auto) 0.1 10 ^3/uL (0-0.2); Eosinophils # (auto) 0 10 ^3/uL (0-0.8); Eosinophils % (auto) 0.1 % (0.0-7.0); Lymphocytes # (auto) 1.2 10 ^3/uL (0.4-5.4); Monocytes % (auto) 7.4 % (0.0-12.0); Nucleated Red Blood Cells % 0.3 %
[2021-03-09 05:24] LABS: Basophils % (auto) 0.4 % (0.0-2.0); Hematocrit 24.8 % (36.0-46.0); Hemoglobin 8.1 g/dL (12.2-16.2); Lymphocytes % (auto) 10.6 % (10.0-50.0); Mean Corpuscular Hemoglobin 29.9 pg (28.0-32.0); Mean Corpuscular Hgb Conc. 32.8 g/dL (32.0-36.0); Mean Corpuscular Volume 91.3 fL (80.0-100.0); Monocytes # (auto) 0.9 10 ^3/uL (0-1.3); Neutrophils # (auto) 9.4 10 ^3/uL (1.6-8.6); Neutrophils % (auto) 81.5 % (37.0-80.0); Red Blood Cells 2.72 10^6/uL (4.0-5.20); White Blood Cell 11.6 10^3/uL (4.4-10.8)
[2021-03-09 05:35] LABS: Red Cell Distribution Width 23.4 % (11.8-14.3)
[2021-03-09 05:39] LABS: Albumin 1.2 g/dL (3.4-5.0); Calcium 7.1 mg/dL (8.5-10.1); Potassium 4.2 mmol/L (3.5-5.1)
[2021-03-09 05:42] LABS: BUN/Creatinine Ratio 50.9; Bilirubin, Direct 0.8 mg/dL (0-0.2); Bilirubin, Total 1.2 mg/dL (0.2-1.0); Total Protein 5.6 g/dL (6.4-8.2)
[2021-03-09] MEDS: METOCLOPRAMIDE HCL 5MG/ml INJ 2ml VIAL IV SCH ×3 (05:52→22:09)
[2021-03-09] MEDS: InsuLIN REG 1unit/0.01ml Soln (100units/ml) SC SCH ×4 (05:52→18:00)
[2021-03-09] MEDS: MIDAZOLAM DRIP 50 mg/50mL 50 ML IV SCH ×2 (05:53→18:44)
[2021-03-09] MEDS: BUDESONIDE (INHALATION) 0.5 MG/2 ML NEB NEB SCH ×2 (06:46→22:11)
[2021-03-09] MEDS: ALBUTEROL SULF 2.5 MG/0.5ML(0.5%) NEB SOLN NEB PRN ×2 (06:46→22:11)
[2021-03-09] MEDS: D5W 5% IV SCH ×3 (07:07→22:09)
[2021-03-09] MEDS: CEFTAZIDIME AVIBACTAM IV SCH ×3 (07:07→22:09)
[2021-03-09] MEDS: PHENYLEPHRINE INJ 80 MG in SODIUM CHL 0.9% 242 ML IV SCH ×2 (07:08→18:45)
[2021-03-09] MEDS: LEVOTHYROXINE SODIUM 100 MCG/5 ML INJ IV SCH (09:55)
[2021-03-09] MEDS: MICAFUNGIN SODIUM 100 MG in SODIUM CHL 0.9% 100 ML IV SCH (09:55)
[2021-03-09] MEDS: PANTOPRAZOLE 40 MG/10 ML VIAL INJ IV SCH ×2 (09:55→22:09)
[2021-03-09] MEDS: BARICITINIB PO SCH (09:56)
[2021-03-09] MEDS: IVERMECTIN 3 MG TAB PO SCH (09:56)
[2021-03-09] MEDS: LACTULOSE 20Gm/30ML SOLN PO SCH ×2 (09:56→22:00)
[2021-03-09] MEDS: ENOXAPARIN SOD 80 MG/0.8ML SYRINGE SC SCH ×2 (09:56→22:09)
[2021-03-09] MEDS: NOREPINEPHRINE BITARTRATE 16 MG in SODIUM CHL 0.9% 234 ML IV SCH (11:35)
[2021-03-09] MEDS: fentaNYL Drip 2500mCg/250mlNS 250 ML IV SCH (18:45)
[2021-03-10] VITALS (100 sets, daily range): BP systolic 91–132; BP diastolic 52–72
[2021-03-10] MEDS: HYDROCORTISONE SOD SUCC 100 MG/2ML INJ VIAL IV SCH ×4 (01:17→17:27)
[2021-03-10] MEDS: ACCU-CHEK COMFORT CURVE STRIP VI SCH ×4 (01:17→17:27)
[2021-03-10] MEDS: PROPOFOL 100 ML IV SCH ×4 (01:19→22:00)
[2021-03-10] MEDS: MIDAZOLAM DRIP 50 mg/50mL 50 ML IV SCH ×2 (03:07→14:34)
[2021-03-10 05:35] LABS: Basophils # (auto) 0.1 10 ^3/uL (0-0.2); Basophils % (auto) 0.5 % (0.0-2.0); Eosinophils # (auto) 0 10 ^3/uL (0-0.8); Eosinophils % (auto) 0.1 % (0.0-7.0); Hematocrit 24.3 % (36.0-46.0); Hemoglobin 8.2 g/dL (12.2-16.2); Lymphocytes # (auto) 1.3 10 ^3/uL (0.4-5.4); Lymphocytes % (auto) 9.5 % (10.0-50.0); Nucleated Red Blood Cells % 0.3 %; White Blood Cell 14.2 10^3/uL (4.4-10.8)
[2021-03-10 05:36] LABS: Mean Corpuscular Hemoglobin 30.4 pg (28.0-32.0); Mean Corpuscular Hgb Conc. 33.8 g/dL (32.0-36.0); Mean Corpuscular Volume 89.8 fL (80.0-100.0); Monocytes # (auto) 0.7 10 ^3/uL (0-1.3); Monocytes % (auto) 5.2 % (0.0-12.0); Neutrophils % (auto) 84.7 % (37.0-80.0)
[2021-03-10 05:53] LABS: Albumin 1.2 g/dL (3.4-5.0); BUN/Creatinine Ratio 50.5; Bilirubin, Direct 0.6 mg/dL (0-0.2); Calcium 7.4 mg/dL (8.5-10.1); Potassium 4.5 mmol/L (3.5-5.1)
[2021-03-10] MEDS: InsuLIN REG 1unit/0.01ml Soln (100units/ml) SC SCH ×4 (06:00→17:26)
[2021-03-10 06:03] LABS: Bilirubin, Total 1.2 mg/dL (0.2-1.0)
[2021-03-10] MEDS: ALBUTEROL SULF 2.5 MG/0.5ML(0.5%) NEB SOLN NEB PRN ×2 (06:05→22:06)
[2021-03-10] MEDS: BUDESONIDE (INHALATION) 0.5 MG/2 ML NEB NEB SCH ×2 (06:05→22:06)
[2021-03-10 06:08] LABS: Red Cell Distribution Width 23.9 % (11.8-14.3)
[2021-03-10] MEDS: D5W 5% IV SCH ×3 (06:10→22:00)
[2021-03-10] MEDS: CEFTAZIDIME AVIBACTAM IV SCH ×3 (06:10→22:00)
[2021-03-10] MEDS: PHENYLEPHRINE INJ 80 MG in SODIUM CHL 0.9% 242 ML IV SCH ×2 (06:11→18:09)
[2021-03-10] MEDS: METOCLOPRAMIDE HCL 5MG/ml INJ 2ml VIAL IV SCH ×3 (06:12→22:00)
[2021-03-10 06:54] LABS: Total Protein 5.9 g/dL (6.4-8.2)
[2021-03-10] MEDS: LACTULOSE 20Gm/30ML SOLN PO SCH ×2 (09:41→22:00)
[2021-03-10] MEDS: PANTOPRAZOLE 40 MG/10 ML VIAL INJ IV SCH ×2 (09:41→22:00)
[2021-03-10] MEDS: IVERMECTIN 3 MG TAB PO SCH (09:41)
[2021-03-10] MEDS: LEVOTHYROXINE SODIUM 100 MCG/5 ML INJ IV SCH (09:41)
[2021-03-10] MEDS: ENOXAPARIN SOD 80 MG/0.8ML SYRINGE SC SCH ×2 (09:42→22:00)
[2021-03-10] MEDS: MICAFUNGIN SODIUM 100 MG in SODIUM CHL 0.9% 100 ML IV SCH (09:42)
[2021-03-10] MEDS: BARICITINIB PO SCH (10:52)
[2021-03-10] MEDS: Glucerna 1.2 Cal 1Liter BOTTLE GT SCH ×2 (12:00→19:14)
[2021-03-10] MEDS: NOREPINEPHRINE BITARTRATE 16 MG in SODIUM CHL 0.9% 234 ML IV SCH (13:00)
[2021-03-10] MEDS: fentaNYL Drip 2500mCg/250mlNS 250 ML IV SCH (17:25)
[2021-03-10] MEDS: VANCOMYCIN 500 MG in D5W 5% 100 ML IV SCH (20:00)
[2021-03-11] VITALS (106 sets, daily range): BP systolic 89–284; BP diastolic 45–140
[2021-03-11] MEDS: PROPOFOL 100 ML IV SCH ×3 (02:00→18:20)
[2021-03-11] MEDS: PHENYLEPHRINE INJ 80 MG in SODIUM CHL 0.9% 242 ML IV SCH ×2 (04:00→13:09)
[2021-03-11 05:44] LABS: Eosinophils # (auto) 0 10 ^3/uL (0-0.8); Eosinophils % (auto) 0.1 % (0.0-7.0)
[2021-03-11 05:47] LABS: Basophils # (auto) 0.1 10 ^3/uL (0-0.2); Basophils % (auto) 0.5 % (0.0-2.0); Hematocrit 22.8 % (36.0-46.0); Hemoglobin 7.8 g/dL (12.2-16.2); Lymphocytes # (auto) 1.7 10 ^3/uL (0.4-5.4); Lymphocytes % (auto) 11.2 % (10.0-50.0); Mean Corpuscular Hemoglobin 31.5 pg (28.0-32.0); Mean Corpuscular Hgb Conc. 34.4 g/dL (32.0-36.0); Mean Corpuscular Volume 91.7 fL (80.0-100.0); Monocytes # (auto) 0.5 10 ^3/uL (0-1.3); Monocytes % (auto) 3.5 % (0.0-12.0); Neutrophils # (auto) 12.6 10 ^3/uL (1.6-8.6); Neutrophils % (auto) 84.7 % (37.0-80.0); Nucleated Red Blood Cells % 0.2 %; Red Blood Cells 2.49 10^6/uL (4.0-5.20); White Blood Cell 14.9 10^3/uL (4.4-10.8)
[2021-03-11 05:51] LABS: Red Cell Distribution Width 23.8 % (11.8-14.3)
[2021-03-11] MEDS: BUDESONIDE (INHALATION) 0.5 MG/2 ML NEB NEB SCH ×2 (05:57→22:00)
[2021-03-11] MEDS: ALBUTEROL SULF 2.5 MG/0.5ML(0.5%) NEB SOLN NEB PRN (05:57)
[2021-03-11] MEDS: METOCLOPRAMIDE HCL 5MG/ml INJ 2ml VIAL IV SCH ×3 (05:58→22:00)
[2021-03-11] MEDS: HYDROCORTISONE SOD SUCC 100 MG/2ML INJ VIAL IV SCH ×5 (05:59→23:56)
[2021-03-11] MEDS: ACCU-CHEK COMFORT CURVE STRIP VI SCH ×4 (06:00→18:18)
[2021-03-11] MEDS: D5W 5% IV SCH (06:00)
[2021-03-11] MEDS: InsuLIN REG 1unit/0.01ml Soln (100units/ml) SC SCH ×4 (06:00→18:00)
[2021-03-11] MEDS: CEFTAZIDIME AVIBACTAM IV SCH (06:00)
[2021-03-11 06:02] LABS: Albumin 1.2 g/dL (3.4-5.0); Calcium 7.6 mg/dL (8.5-10.1); Potassium 4.6 mmol/L (3.5-5.1)
[2021-03-11 06:05] LABS: BUN/Creatinine Ratio 48.5
[2021-03-11 06:14] LABS: Total Protein 5.9 g/dL (6.4-8.2)
[2021-03-11 07:21] LABS: Bilirubin, Direct 0.5 mg/dL (0-0.2)
[2021-03-11] MEDS: LACTULOSE 20Gm/30ML SOLN PO SCH ×2 (10:00→22:00)
[2021-03-11] MEDS: BARICITINIB PO SCH (10:00)
[2021-03-11] MEDS: PANTOPRAZOLE 40 MG/10 ML VIAL INJ IV SCH ×2 (10:25→22:00)
[2021-03-11] MEDS: LEVOTHYROXINE SODIUM 100 MCG/5 ML INJ IV SCH (10:26)
[2021-03-11] MEDS: MICAFUNGIN SODIUM 100 MG in SODIUM CHL 0.9% 100 ML IV SCH (10:26)
[2021-03-11] MEDS: ENOXAPARIN SOD 80 MG/0.8ML SYRINGE SC SCH ×2 (10:27→22:00)
[2021-03-11] MEDS: IVERMECTIN 3 MG TAB PO SCH (10:27)
[2021-03-11] MEDS: NOREPINEPHRINE BITARTRATE 16 MG in SODIUM CHL 0.9% 234 ML IV SCH (13:00)
[2021-03-11] MEDS ORDERED: D5W 5% IV ONE (14:00)
[2021-03-11] MEDS ORDERED: CEFTAZIDIME AVIBACTAM IV ONE (14:00)
[2021-03-11] MEDS: MIDAZOLAM DRIP 50 mg/50mL 50 ML IV SCH ×2 (18:19)
[2021-03-11] MEDS: VANCOMYCIN 500 MG in D5W 5% 100 ML IV SCH (20:00)
[2021-03-11] MEDS: CEFTAZIDIME-AVIBACTAM 2.5gm 2.5 GM in D5W 5% 100 ML IV SCH (22:00)
[2021-03-12] VITALS (105 sets, daily range): BP systolic 103–158; BP diastolic 49–87
[2021-03-12] MEDS: ACCU-CHEK COMFORT CURVE STRIP VI SCH ×4 (00:20→17:48)
[2021-03-12] MEDS: fentaNYL Drip 2500mCg/250mlNS 250 ML IV SCH ×2 (01:18→17:45)
[2021-03-12 05:35] LABS: Albumin 1.2 g/dL (3.4-5.0); Calcium 7.5 mg/dL (8.5-10.1); Potassium 4.7 mmol/L (3.5-5.1)
[2021-03-12 05:37] LABS: Bilirubin, Direct 0.5 mg/dL (0-0.2)
[2021-03-12 05:45] LABS: Bilirubin, Total 0.9 mg/dL (0.2-1.0)
[2021-03-12 05:48] LABS: Hematocrit 23.7 % (36.0-46.0); Hemoglobin 8.1 g/dL (12.2-16.2); Red Blood Cells 2.56 10^6/uL (4.0-5.20); White Blood Cell 14.7 10^3/uL (4.4-10.8)
[2021-03-12 05:50] LABS: Mean Corpuscular Hemoglobin 31.8 pg (28.0-32.0); Mean Corpuscular Hgb Conc. 34.4 g/dL (32.0-36.0); Mean Corpuscular Volume 92.3 fL (80.0-100.0)
[2021-03-12 05:52] LABS: BUN/Creatinine Ratio 54.9
[2021-03-12 05:56] LABS: Total Protein 5.6 g/dL (6.4-8.2)
[2021-03-12] MEDS: CEFTAZIDIME-AVIBACTAM 2.5gm 2.5 GM in D5W 5% 100 ML IV SCH ×3 (06:00→22:41)
[2021-03-12] MEDS: HYDROCORTISONE SOD SUCC 100 MG/2ML INJ VIAL IV SCH ×3 (06:00→17:45)
[2021-03-12] MEDS: InsuLIN REG 1unit/0.01ml Soln (100units/ml) SC SCH ×4 (06:00→19:15)
[2021-03-12] MEDS: METOCLOPRAMIDE HCL 5MG/ml INJ 2ml VIAL IV SCH (06:00)
[2021-03-12 06:05] LABS: Red Cell Distribution Width 23.9 % (11.8-14.3)
[2021-03-12 06:08] LABS: Basophils % (manual) 0 (0.0-2.0); Blast Cells 0; Eosinophils % (manual) 0 (0-7); Metamyelocytes % 0; Myelocytes % 0; Promyelocytes % 0; Reactive Lymphocytes 0
[2021-03-12] MEDS: ALBUTEROL SULF 2.5 MG/0.5ML(0.5%) NEB SOLN NEB PRN (06:58)
[2021-03-12] MEDS: BUDESONIDE (INHALATION) 0.5 MG/2 ML NEB NEB SCH (06:58)
[2021-03-12 09:11] LABS: Band Neutrophils % (manual) 6; Lymphocytes % (manual) 8 (10.0-50.0); Monocytes % (manual) 2 (0-12)
[2021-03-12] MEDS: BARICITINIB PO SCH (10:00)
[2021-03-12] MEDS: ENOXAPARIN SOD 80 MG/0.8ML SYRINGE SC SCH ×2 (10:09→22:41)
[2021-03-12] MEDS: LEVOTHYROXINE SODIUM 100 MCG/5 ML INJ IV SCH (10:09)
[2021-03-12] MEDS: MICAFUNGIN SODIUM 100 MG in SODIUM CHL 0.9% 100 ML IV SCH (10:09)
[2021-03-12] MEDS: PANTOPRAZOLE 40 MG/10 ML VIAL INJ IV SCH ×2 (10:09→22:41)
[2021-03-12] MEDS: IVERMECTIN 3 MG TAB PO SCH (10:10)
[2021-03-12] MEDS: NOREPINEPHRINE BITARTRATE 16 MG in SODIUM CHL 0.9% 234 ML IV SCH (12:29)
[2021-03-12] MEDS: PHENYLEPHRINE INJ 80 MG in SODIUM CHL 0.9% 242 ML IV SCH (16:45)
[2021-03-12] MEDS: PROPOFOL 100 ML IV SCH (17:46)
[2021-03-12] MEDS: VANCOMYCIN 500 MG in D5W 5% 100 ML IV SCH (20:09)
[2021-03-12] MEDS: Glucerna 1.2 Cal 1Liter BOTTLE GT SCH (21:00)
[2021-03-13] VITALS (106 sets, daily range): BP systolic 112–161; BP diastolic 53–74
[2021-03-13] MEDS: PROPOFOL 100 ML IV SCH ×2 (01:00→15:00)
[2021-03-13] MEDS: ALBUTEROL SULF 2.5 MG/0.5ML(0.5%) NEB SOLN NEB PRN ×2 (01:02→18:48)
[2021-03-13] MEDS: BUDESONIDE (INHALATION) 0.5 MG/2 ML NEB NEB SCH ×2 (01:02→18:48)
[2021-03-13 05:46] LABS: Hematocrit 22.6 % (36.0-46.0); Hemoglobin 7.7 g/dL (12.2-16.2); Mean Corpuscular Hgb Conc. 34.2 g/dL (32.0-36.0); Mean Corpuscular Volume 93.6 fL (80.0-100.0); Red Blood Cells 2.42 10^6/uL (4.0-5.20)
[2021-03-13] MEDS: CEFTAZIDIME-AVIBACTAM 2.5gm 2.5 GM in D5W 5% 100 ML IV SCH ×3 (05:54→21:42)
[2021-03-13] MEDS: HYDROCORTISONE SOD SUCC 100 MG/2ML INJ VIAL IV SCH ×5 (05:54→23:37)
[2021-03-13] MEDS: InsuLIN REG 1unit/0.01ml Soln (100units/ml) SC SCH ×4 (05:55→17:50)
[2021-03-13] MEDS: ACCU-CHEK COMFORT CURVE STRIP VI SCH ×4 (05:55→17:45)
[2021-03-13 06:02] LABS: Albumin 1.2 g/dL (3.4-5.0); Calcium 7.6 mg/dL (8.5-10.1); Potassium 4.7 mmol/L (3.5-5.1)
[2021-03-13 06:09] LABS: Bilirubin, Direct 0.4 mg/dL (0-0.2); Bilirubin, Total 0.8 mg/dL (0.2-1.0)
[2021-03-13 06:29] LABS: BUN/Creatinine Ratio 58.5; Total Protein 5.4 g/dL (6.4-8.2)
[2021-03-13 06:51] LABS: Band Neutrophils % (manual) 0; Basophils % (manual) 0 (0.0-2.0); Blast Cells 0; Metamyelocytes % 0; Myelocytes % 0; Promyelocytes % 0; Reactive Lymphocytes 0
[2021-03-13] MEDS: BARICITINIB PO SCH (10:00)
[2021-03-13] MEDS: IVERMECTIN 3 MG TAB PO SCH (10:04)
[2021-03-13] MEDS: MICAFUNGIN SODIUM 100 MG in SODIUM CHL 0.9% 100 ML IV SCH (10:04)
[2021-03-13] MEDS: PANTOPRAZOLE 40 MG/10 ML VIAL INJ IV SCH ×2 (10:04→21:35)
[2021-03-13] MEDS: ENOXAPARIN SOD 80 MG/0.8ML SYRINGE SC SCH ×2 (10:04→21:35)
[2021-03-13] MEDS: LEVOTHYROXINE SODIUM 100 MCG/5 ML INJ IV SCH (10:05)
[2021-03-13 10:56] LABS: Eosinophils % (manual) 1 (0-7); Lymphocytes % (manual) 13 (10.0-50.0); Monocytes % (manual) 1 (0-12)
[2021-03-13] MEDS: NOREPINEPHRINE BITARTRATE 16 MG in SODIUM CHL 0.9% 234 ML IV SCH (13:00)
[2021-03-13] MEDS: PHENYLEPHRINE INJ 80 MG in SODIUM CHL 0.9% 242 ML IV SCH (16:45)
[2021-03-13] MEDS: fentaNYL Drip 2500mCg/250mlNS 250 ML IV SCH (17:00)
[2021-03-13] MEDS: VANCOMYCIN 500 MG in D5W 5% 100 ML IV SCH (19:53)
[2021-03-14] VITALS (102 sets, daily range): BP systolic 103–156; BP diastolic 42–75
[2021-03-14] MEDS: ACCU-CHEK COMFORT CURVE STRIP VI SCH ×4 (00:20→17:48)
[2021-03-14] MEDS: InsuLIN REG 1unit/0.01ml Soln (100units/ml) SC SCH ×4 (00:20→17:48)
[2021-03-14] MEDS: CEFTAZIDIME-AVIBACTAM 2.5gm 2.5 GM in D5W 5% 100 ML IV SCH ×3 (05:21→22:20)
[2021-03-14] MEDS: HYDROCORTISONE SOD SUCC 100 MG/2ML INJ VIAL IV SCH ×3 (05:21→18:19)
[2021-03-14 05:22] LABS: Hematocrit 23.7 % (36.0-46.0); Hemoglobin 7.7 g/dL (12.2-16.2)
[2021-03-14 05:24] LABS: Mean Corpuscular Hemoglobin 29.7 pg (28.0-32.0); Mean Corpuscular Hgb Conc. 32.3 g/dL (32.0-36.0); Mean Corpuscular Volume 92.1 fL (80.0-100.0); Red Blood Cells 2.58 10^6/uL (4.0-5.20); White Blood Cell 16.8 10^3/uL (4.4-10.8)
[2021-03-14 05:40] LABS: Albumin 1.2 g/dL (3.4-5.0); Bilirubin, Direct 0.3 mg/dL (0-0.2); Calcium 7.8 mg/dL (8.5-10.1)
[2021-03-14 05:48] LABS: BUN/Creatinine Ratio 63.9; Bilirubin, Total 0.7 mg/dL (0.2-1.0); Total Protein 5.6 g/dL (6.4-8.2)
[2021-03-14 06:25] LABS: Red Cell Distribution Width 23.9 % (11.8-14.3)
[2021-03-14 06:26] LABS: Basophils % (manual) 0 (0.0-2.0); Blast Cells 0; Eosinophils % (manual) 0 (0-7); Metamyelocytes % 0; Myelocytes % 0; Promyelocytes % 0; Reactive Lymphocytes 0
[2021-03-14] MEDS: BUDESONIDE (INHALATION) 0.5 MG/2 ML NEB NEB SCH ×2 (06:59→19:10)
[2021-03-14] MEDS: ALBUTEROL SULF 2.5 MG/0.5ML(0.5%) NEB SOLN NEB PRN ×2 (07:00→19:10)
[2021-03-14 08:25] LABS: Band Neutrophils % (manual) 1; Lymphocytes % (manual) 6 (10.0-50.0); Monocytes % (manual) 2 (0-12)
[2021-03-14] MEDS: BARICITINIB PO SCH (10:00)
[2021-03-14] MEDS: ENOXAPARIN SOD 80 MG/0.8ML SYRINGE SC SCH ×2 (10:00→22:20)
[2021-03-14] MEDS: PANTOPRAZOLE 40 MG/10 ML VIAL INJ IV SCH ×2 (10:30→22:21)
[2021-03-14] MEDS: LEVOTHYROXINE SODIUM 100 MCG/5 ML INJ IV SCH (10:31)
[2021-03-14] MEDS: MICAFUNGIN SODIUM 100 MG in SODIUM CHL 0.9% 100 ML IV SCH (10:31)
[2021-03-14] MEDS: NOREPINEPHRINE BITARTRATE 16 MG in SODIUM CHL 0.9% 234 ML IV SCH (13:00)
[2021-03-14] MEDS: IVERMECTIN 3 MG TAB PO SCH (13:17)
[2021-03-14] MEDS: FUROSEMIDE INJECTION 100 MG in D5W 5% 100 ML IV SCH (13:17)
[2021-03-14] MEDS: PROPOFOL 100 ML IV SCH (14:27)
[2021-03-14] MEDS: PHENYLEPHRINE INJ 80 MG in SODIUM CHL 0.9% 242 ML IV SCH (16:45)
[2021-03-14] MEDS: fentaNYL Drip 2500mCg/250mlNS 250 ML IV SCH (17:00)
[2021-03-14] MEDS: VANCOMYCIN 500 MG in D5W 5% 100 ML IV SCH (22:20)
[2021-03-15] VITALS (105 sets, daily range): BP systolic 84–150; BP diastolic 43–77
[2021-03-15] MEDS: HYDROCORTISONE SOD SUCC 100 MG/2ML INJ VIAL IV SCH ×5 (00:16→23:17)
[2021-03-15] MEDS: ACCU-CHEK COMFORT CURVE STRIP VI SCH ×4 (00:16→18:00)
[2021-03-15] MEDS: CEFTAZIDIME-AVIBACTAM 2.5gm 2.5 GM in D5W 5% 100 ML IV SCH ×3 (05:08→23:17)
[2021-03-15] MEDS: FUROSEMIDE INJECTION 100 MG in D5W 5% 100 ML IV SCH (05:09)
[2021-03-15] MEDS: InsuLIN REG 1unit/0.01ml Soln (100units/ml) SC SCH ×4 (05:43→18:00)
[2021-03-15] MEDS: ALBUTEROL SULF 2.5 MG/0.5ML(0.5%) NEB SOLN NEB PRN ×2 (06:00→19:46)
[2021-03-15] MEDS: BUDESONIDE (INHALATION) 0.5 MG/2 ML NEB NEB SCH ×2 (06:00→19:46)
[2021-03-15] MEDS: MICAFUNGIN SODIUM 100 MG in SODIUM CHL 0.9% 100 ML IV SCH (10:08)
[2021-03-15] MEDS: PANTOPRAZOLE 40 MG/10 ML VIAL INJ IV SCH ×2 (10:09→23:17)
[2021-03-15] MEDS: ENOXAPARIN SOD 80 MG/0.8ML SYRINGE SC SCH ×2 (10:09→23:17)
[2021-03-15] MEDS: IVERMECTIN 3 MG TAB PO SCH (10:09)
[2021-03-15] MEDS: LEVOTHYROXINE SODIUM 100 MCG/5 ML INJ IV SCH (10:09)
[2021-03-15] MEDS: fentaNYL Drip 2500mCg/250mlNS 250 ML IV SCH (13:14)
[2021-03-15] MEDS ORDERED: FUROSEMIDE INJECTION 100 MG in D5W 5% 100 ML IV SCH (14:00)
[2021-03-15 14:37] LABS: Hemoglobin 7.1 g/dL (12.2-16.2); Red Blood Cells 2.35 10^6/uL (4.0-5.20)
[2021-03-15 14:39] LABS: Hematocrit 21.5 % (36.0-46.0); Mean Corpuscular Hemoglobin 30.2 pg (28.0-32.0); Mean Corpuscular Volume 91.5 fL (80.0-100.0); White Blood Cell 12.8 10^3/uL (4.4-10.8)
[2021-03-15 14:45] LABS: Basophils % (manual) 0 (0.0-2.0); Blast Cells 0; Metamyelocytes % 0; Myelocytes % 0; Promyelocytes % 0; Reactive Lymphocytes 0
[2021-03-15 15:01] LABS: BUN/Creatinine Ratio 56.7; Calcium 7.6 mg/dL (8.5-10.1); Potassium 3.8 mmol/L (3.5-5.1)
[2021-03-15 15:09] LABS: Bilirubin, Total 0.7 mg/dL (0.2-1.0); Total Protein 5.2 g/dL (6.4-8.2)
[2021-03-15] MEDS: PROPOFOL 100 ML IV SCH ×2 (16:30→20:53)
[2021-03-15] MEDS: PHENYLEPHRINE INJ 80 MG in SODIUM CHL 0.9% 242 ML IV SCH (16:45)
[2021-03-15] MEDS ORDERED: TOCILIZUMAB 400 MG in SODIUM CHL 0.9% 80 ML IV ONE (18:00)
[2021-03-15] MEDS: VANCOMYCIN 500 MG in D5W 5% 100 ML IV SCH (20:20)
[2021-03-15 20:39] LABS: Band Neutrophils % (manual) 6; Eosinophils % (manual) 3 (0-7); Lymphocytes % (manual) 7 (10.0-50.0); Monocytes % (manual) 2 (0-12)
[2021-03-16] VITALS (108 sets, daily range): BP systolic 80–147; BP diastolic 41–65
[2021-03-16] MEDS: ACCU-CHEK COMFORT CURVE STRIP VI SCH ×4 (00:55→18:00)
[2021-03-16] MEDS: FUROSEMIDE INJECTION 100 MG in D5W 5% 100 ML IV SCH ×2 (00:55→20:45)
[2021-03-16] MEDS: fentaNYL Drip 2500mCg/250mlNS 250 ML IV SCH ×2 (03:36→16:47)
[2021-03-16] MEDS: PROPOFOL 100 ML IV SCH (04:23)
[2021-03-16 05:18] LABS: Basophils # (auto) 0.1 10 ^3/uL (0-0.2); Lymphocytes # (auto) 0.6 10 ^3/uL (0.4-5.4)
[2021-03-16 05:20] LABS: Basophils % (auto) 0.7 % (0.0-2.0); Eosinophils # (auto) 0.2 10 ^3/uL (0-0.8); Eosinophils % (auto) 2.5 % (0.0-7.0); Hematocrit 22.3 % (36.0-46.0); Hemoglobin 7.5 g/dL (12.2-16.2); Lymphocytes % (auto) 7.4 % (10.0-50.0); Mean Corpuscular Hemoglobin 30.9 pg (28.0-32.0); Mean Corpuscular Hgb Conc. 33.7 g/dL (32.0-36.0); Mean Corpuscular Volume 91.7 fL (80.0-100.0); Monocytes # (auto) 0.3 10 ^3/uL (0-1.3); Neutrophils # (auto) 7.2 10 ^3/uL (1.6-8.6); Neutrophils % (auto) 85.4 % (37.0-80.0); Nucleated Red Blood Cells % 0.6 %; Red Blood Cells 2.43 10^6/uL (4.0-5.20); White Blood Cell 8.5 10^3/uL (4.4-10.8)
[2021-03-16 05:41] LABS: Potassium 3.8 mmol/L (3.5-5.1)
[2021-03-16 05:48] LABS: Calcium 7.5 mg/dL (8.5-10.1)
[2021-03-16 05:50] LABS: Bilirubin, Total 0.6 mg/dL (0.2-1.0); Total Protein 5.4 g/dL (6.4-8.2)
[2021-03-16] MEDS: InsuLIN REG 1unit/0.01ml Soln (100units/ml) SC SCH ×4 (06:00→18:00)
[2021-03-16 06:09] LABS: Red Cell Distribution Width 23.7 % (11.8-14.3)
[2021-03-16] MEDS: BUDESONIDE (INHALATION) 0.5 MG/2 ML NEB NEB SCH ×2 (06:17→19:39)
[2021-03-16] MEDS: ALBUTEROL SULF 2.5 MG/0.5ML(0.5%) NEB SOLN NEB PRN ×2 (06:17→19:39)
[2021-03-16] MEDS: CEFTAZIDIME-AVIBACTAM 2.5gm 2.5 GM in D5W 5% 100 ML IV SCH ×3 (07:40→22:00)
[2021-03-16] MEDS: HYDROCORTISONE SOD SUCC 100 MG/2ML INJ VIAL IV SCH ×3 (07:40→18:00)
[2021-03-16] MEDS: ENOXAPARIN SOD 80 MG/0.8ML SYRINGE SC SCH ×2 (09:47→22:00)
[2021-03-16] MEDS: LEVOTHYROXINE SODIUM 100 MCG/5 ML INJ IV SCH (09:47)
[2021-03-16] MEDS: IVERMECTIN 3 MG TAB PO SCH (09:47)
[2021-03-16] MEDS: PANTOPRAZOLE 40 MG/10 ML VIAL INJ IV SCH ×2 (09:47→22:00)
[2021-03-16] MEDS: NOREPINEPHRINE BITARTRATE 16 MG in SODIUM CHL 0.9% 234 ML IV SCH (10:35)
[2021-03-16] MEDS: PHENYLEPHRINE INJ 80 MG in SODIUM CHL 0.9% 242 ML IV SCH (16:45)
[2021-03-16] MEDS: VANCOMYCIN 500 MG in D5W 5% 100 ML IV SCH (20:45)
[2021-03-17] VITALS (107 sets, daily range): BP systolic 78–180; BP diastolic 39–74
[2021-03-17] MEDS: PROPOFOL 100 ML IV SCH ×2 (02:00→09:29)
[2021-03-17 05:24] LABS: Basophils # (auto) 0 10 ^3/uL (0-0.2); Eosinophils # (auto) 0 10 ^3/uL (0-0.8); Eosinophils % (auto) 0.6 % (0.0-7.0); Monocytes % (auto) 4.5 % (0.0-12.0); Neutrophils # (auto) 6.7 10 ^3/uL (1.6-8.6)
[2021-03-17 05:27] LABS: Basophils % (auto) 0.4 % (0.0-2.0); Hematocrit 19.7 % (36.0-46.0); Lymphocytes # (auto) 0.7 10 ^3/uL (0.4-5.4); Lymphocytes % (auto) 8.7 % (10.0-50.0); Mean Corpuscular Hemoglobin 30.4 pg (28.0-32.0); Mean Corpuscular Hgb Conc. 33.2 g/dL (32.0-36.0); Mean Corpuscular Volume 91.7 fL (80.0-100.0); Monocytes # (auto) 0.3 10 ^3/uL (0-1.3); Neutrophils % (auto) 85.8 % (37.0-80.0); Nucleated Red Blood Cells % 0.3 %; Red Blood Cells 2.15 10^6/uL (4.0-5.20); White Blood Cell 7.8 10^3/uL (4.4-10.8)
[2021-03-17 05:34] LABS: Hemoglobin 6.5 g/dL (12.2-16.2); Red Cell Distribution Width 23.2 % (11.8-14.3)
[2021-03-17 05:40] LABS: Calcium 6.8 mg/dL (8.5-10.1); Potassium 3.7 mmol/L (3.5-5.1)
[2021-03-17 05:44] LABS: BUN/Creatinine Ratio 53.3; Bilirubin, Total 0.6 mg/dL (0.2-1.0); Total Protein 5.2 g/dL (6.4-8.2)
[2021-03-17] MEDS: CEFTAZIDIME-AVIBACTAM 2.5gm 2.5 GM in D5W 5% 100 ML IV SCH ×2 (06:00→16:02)
[2021-03-17] MEDS: ACCU-CHEK COMFORT CURVE STRIP VI SCH ×4 (06:00→17:49)
[2021-03-17] MEDS: InsuLIN REG 1unit/0.01ml Soln (100units/ml) SC SCH ×4 (06:00→17:49)
[2021-03-17] MEDS: HYDROCORTISONE SOD SUCC 100 MG/2ML INJ VIAL IV SCH ×3 (06:00→14:00)
[2021-03-17] MEDS: FUROSEMIDE INJECTION 100 MG in D5W 5% 100 ML IV SCH (06:15)
[2021-03-17] MEDS: NOREPINEPHRINE BITARTRATE 16 MG in SODIUM CHL 0.9% 234 ML IV SCH ×2 (06:59→13:00)
[2021-03-17 07:26] LABS: INR 1.1 (0.9-1.15); Partial Thromboplastin Time 36.1 sec (23.6-33.0)
[2021-03-17] MEDS: BUDESONIDE (INHALATION) 0.5 MG/2 ML NEB NEB SCH ×2 (08:21→18:56)
[2021-03-17] MEDS: ALBUTEROL SULF 2.5 MG/0.5ML(0.5%) NEB SOLN NEB PRN ×2 (08:21→18:56)
[2021-03-17] MEDS: PANTOPRAZOLE 40 MG/10 ML VIAL INJ IV SCH (08:59)
[2021-03-17] MEDS: ENOXAPARIN SOD 80 MG/0.8ML SYRINGE SC SCH (09:04)
[2021-03-17] MEDS: IVERMECTIN 3 MG TAB PO SCH (09:04)
[2021-03-17] MEDS: LEVOTHYROXINE SODIUM 100 MCG/5 ML INJ IV SCH (09:04)
[2021-03-17 10:08] LABS: Hematocrit 19.1 % (36.0-46.0)
[2021-03-17 10:15] LABS: Hemoglobin 6.5 g/dL (12.2-16.2)
[2021-03-17] MEDS: PHENYLEPHRINE INJ 80 MG in SODIUM CHL 0.9% 242 ML IV SCH (16:45)
[2021-03-17] MEDS: fentaNYL Drip 2500mCg/250mlNS 250 ML IV SCH (17:00)
[2021-03-17] MEDS: VANCOMYCIN 500 MG in D5W 5% 100 ML IV SCH (20:00)
[2021-03-17] MEDS: D5W 5% IV SCH (22:00)
[2021-03-17] MEDS: CEFTAZIDIME AVIBACTAM IV SCH (22:00)
[2021-03-18] VITALS (102 sets, daily range): BP systolic 82–180; BP diastolic 37–109
[2021-03-18] MEDS: PANTOPRAZOLE 40 MG/10 ML VIAL INJ IV SCH ×3 (00:44→22:00)
[2021-03-18] MEDS: ENOXAPARIN SOD 80 MG/0.8ML SYRINGE SC SCH (00:44)
[2021-03-18] MEDS: ACCU-CHEK COMFORT CURVE STRIP VI SCH ×4 (00:45→18:00)
[2021-03-18] MEDS: HYDROCORTISONE SOD SUCC 100 MG/2ML INJ VIAL IV SCH ×3 (00:49→14:00)
[2021-03-18 05:27] LABS: Hematocrit 23.8 % (36.0-46.0); Hemoglobin 8.1 g/dL (12.2-16.2); Mean Corpuscular Hemoglobin 30.7 pg (28.0-32.0); Mean Corpuscular Hgb Conc. 34.2 g/dL (32.0-36.0); Mean Corpuscular Volume 89.6 fL (80.0-100.0); Red Blood Cells 2.66 10^6/uL (4.0-5.20); White Blood Cell 11.6 10^3/uL (4.4-10.8)
[2021-03-18 05:45] LABS: Calcium 6.3 mg/dL (8.5-10.1); Potassium 3.7 mmol/L (3.5-5.1)
[2021-03-18 05:49] LABS: Bilirubin, Total 0.8 mg/dL (0.2-1.0)
[2021-03-18] MEDS: D5W 5% IV SCH ×3 (05:54→22:00)
[2021-03-18] MEDS: CEFTAZIDIME AVIBACTAM IV SCH ×3 (05:54→22:00)
[2021-03-18] MEDS: fentaNYL Drip 2500mCg/250mlNS 250 ML IV SCH (05:58)
[2021-03-18] MEDS: InsuLIN REG 1unit/0.01ml Soln (100units/ml) SC SCH ×4 (06:00→18:00)
[2021-03-18 06:09] LABS: BUN/Creatinine Ratio 53.5
[2021-03-18 06:17] LABS: Red Cell Distribution Width 21.1 % (11.8-14.3)
[2021-03-18 06:19] LABS: Basophils % (manual) 0 (0.0-2.0); Blast Cells 0; Metamyelocytes % 0; Myelocytes % 0; Promyelocytes % 0; Reactive Lymphocytes 0
[2021-03-18 08:47] LABS: Band Neutrophils % (manual) 16; Eosinophils % (manual) 5 (0-7); Lymphocytes % (manual) 9 (10.0-50.0); Monocytes % (manual) 5 (0-12)
[2021-03-18] MEDS: IVERMECTIN 3 MG TAB PO SCH (09:20)
[2021-03-18] MEDS: LEVOTHYROXINE SODIUM 100 MCG/5 ML INJ IV SCH (09:28)
[2021-03-18] MEDS: PROPOFOL 100 ML IV SCH (09:28)
[2021-03-18 09:45] LABS: Total Protein 4.9 g/dL (6.4-8.2)
[2021-03-18] MEDS ORDERED: FUROSEMIDE 40 MG/4 ML VIAL IV SCH (10:00)
[2021-03-18] MEDS: ALBUTEROL SULF 2.5 MG/0.5ML(0.5%) NEB SOLN NEB PRN ×2 (10:31→19:17)
[2021-03-18] MEDS: BUDESONIDE (INHALATION) 0.5 MG/2 ML NEB NEB SCH ×2 (10:32→19:17)
[2021-03-18] MEDS: FUROSEMIDE 20 MG/2 ML VIAL IV SCH (11:15)
[2021-03-18 11:53] LABS: Free T3 0.43 pg/mL (2.3-4.2); Free T4 (Free Thyroxine) 0.84 ng/dL (0.89-1.76)
[2021-03-18] MEDS: NOREPINEPHRINE BITARTRATE 16 MG in SODIUM CHL 0.9% 234 ML IV SCH (12:08)
[2021-03-18] MEDS: PHENYLEPHRINE INJ 80 MG in SODIUM CHL 0.9% 242 ML IV SCH (14:55)
[2021-03-18] MEDS ORDERED: PANTOPRAZOLE 40mg/50ML NS AE 50 ML IV SCH (15:45)
[2021-03-18 15:47] LABS: Hematocrit 24.4 % (36.0-46.0); Hemoglobin 8.6 g/dL (12.2-16.2)
[2021-03-18] MEDS: DAPTOmycin 250 MG in SODIUM CHL 0.9% 50 ML IV SCH (21:29)
[2021-03-19] VITALS (101 sets, daily range): BP systolic 88–178; BP diastolic 38–81
[2021-03-19] MEDS: HYDROCORTISONE SOD SUCC 100 MG/2ML INJ VIAL IV SCH ×4 (00:20→21:17)
[2021-03-19] MEDS: BUDESONIDE (INHALATION) 0.5 MG/2 ML NEB NEB SCH ×2 (05:55→18:55)
[2021-03-19] MEDS: ALBUTEROL SULF 2.5 MG/0.5ML(0.5%) NEB SOLN NEB PRN ×2 (05:55→18:55)
[2021-03-19] MEDS: ACCU-CHEK COMFORT CURVE STRIP VI SCH ×5 (06:00→23:15)
[2021-03-19] MEDS: CEFTAZIDIME AVIBACTAM IV SCH ×3 (06:00→21:17)
[2021-03-19] MEDS: D5W 5% IV SCH ×3 (06:00→21:17)
[2021-03-19] MEDS: InsuLIN REG 1unit/0.01ml Soln (100units/ml) SC SCH ×5 (06:00→23:15)
[2021-03-19 07:16] LABS: Hemoglobin 8.9 g/dL (12.2-16.2); White Blood Cell 13.2 10^3/uL (4.4-10.8)
[2021-03-19 07:18] LABS: Mean Corpuscular Hemoglobin 33.1 pg (28.0-32.0); Mean Corpuscular Volume 89.9 fL (80.0-100.0); Red Blood Cells 2.67 10^6/uL (4.0-5.20); Red Cell Distribution Width 20.7 % (11.8-14.3)
[2021-03-19 07:24] LABS: Basophils % (manual) 0 (0.0-2.0); Blast Cells 0; Metamyelocytes % 0; Monocytes % (manual) 0 (0-12); Myelocytes % 0; Promyelocytes % 0; Reactive Lymphocytes 0
[2021-03-19 07:42] LABS: Albumin 1.1 g/dL (3.4-5.0); Potassium 3.9 mmol/L (3.5-5.1)
[2021-03-19 07:47] LABS: Bilirubin, Total 0.9 mg/dL (0.2-1.0)
[2021-03-19] MEDS: fentaNYL Drip 2500mCg/250mlNS 250 ML IV SCH (07:50)
[2021-03-19 09:09] LABS: Total Protein 5.2 g/dL (6.4-8.2)
[2021-03-19 09:11] LABS: Calcium 5.9 mg/dL (8.5-10.1)
[2021-03-19 09:30] LABS: Band Neutrophils % (manual) 4; Eosinophils % (manual) 2 (0-7); Lymphocytes % (manual) 15 (10.0-50.0)
[2021-03-19] MEDS: LEVOTHYROXINE SODIUM 100 MCG/5 ML INJ IV SCH (09:55)
[2021-03-19] MEDS: FUROSEMIDE 20 MG/2 ML VIAL IV SCH (09:55)
[2021-03-19] MEDS: PANTOPRAZOLE 40 MG/10 ML VIAL INJ IV SCH ×2 (09:55→21:17)
[2021-03-19] MEDS: NOREPINEPHRINE BITARTRATE 16 MG in SODIUM CHL 0.9% 234 ML IV SCH (13:00)
[2021-03-19] MEDS: PHENYLEPHRINE INJ 80 MG in SODIUM CHL 0.9% 242 ML IV SCH (16:45)
[2021-03-19] MEDS: PROPOFOL 100 ML IV SCH (16:59)
[2021-03-19] MEDS: DAPTOmycin 250 MG in SODIUM CHL 0.9% 50 ML IV SCH (19:07)
[2021-03-20] VITALS (104 sets, daily range): BP systolic 73–191; BP diastolic 40–111
[2021-03-20] MEDS: fentaNYL Drip 2500mCg/250mlNS 250 ML IV SCH (01:34)
[2021-03-20] MEDS: ACCU-CHEK COMFORT CURVE STRIP VI SCH ×3 (05:44→17:58)
[2021-03-20] MEDS: HYDROCORTISONE SOD SUCC 100 MG/2ML INJ VIAL IV SCH ×3 (05:44→20:40)
[2021-03-20] MEDS: CEFTAZIDIME AVIBACTAM IV SCH ×2 (05:44→20:39)
[2021-03-20] MEDS: InsuLIN REG 1unit/0.01ml Soln (100units/ml) SC SCH ×3 (05:44→17:58)
[2021-03-20] MEDS: D5W 5% IV SCH ×2 (05:44→20:39)
[2021-03-20] MEDS: BUDESONIDE (INHALATION) 0.5 MG/2 ML NEB NEB SCH ×2 (07:04→22:38)
[2021-03-20] MEDS: ALBUTEROL SULF 2.5 MG/0.5ML(0.5%) NEB SOLN NEB PRN ×2 (07:04→22:38)
[2021-03-20 10:23] LABS: Hemoglobin 7.6 g/dL (12.2-16.2); White Blood Cell 13.7 10^3/uL (4.4-10.8)
[2021-03-20 10:25] LABS: Hematocrit 21.4 % (36.0-46.0); Mean Corpuscular Hgb Conc. 35.6 g/dL (32.0-36.0); Mean Corpuscular Volume 89.9 fL (80.0-100.0); Red Blood Cells 2.38 10^6/uL (4.0-5.20)
[2021-03-20] MEDS: PANTOPRAZOLE 40 MG/10 ML VIAL INJ IV SCH ×2 (10:38→20:40)
[2021-03-20] MEDS: FUROSEMIDE 20 MG/2 ML VIAL IV SCH (10:38)
[2021-03-20] MEDS: LEVOTHYROXINE SODIUM 100 MCG/5 ML INJ IV SCH (10:38)
[2021-03-20 10:39] LABS: Albumin 1.1 g/dL (3.4-5.0); Calcium 6.2 mg/dL (8.5-10.1); Potassium 3.6 mmol/L (3.5-5.1)
[2021-03-20 10:45] LABS: Bilirubin, Total 0.9 mg/dL (0.2-1.0)
[2021-03-20 10:49] LABS: Red Cell Distribution Width 20.7 % (11.8-14.3)
[2021-03-20 10:51] LABS: Basophils % (manual) 0 (0.0-2.0); Blast Cells 0; Eosinophils % (manual) 0 (0-7); Metamyelocytes % 0; Monocytes % (manual) 0 (0-12); Myelocytes % 0; Promyelocytes % 0; Reactive Lymphocytes 0
[2021-03-20 11:21] LABS: Band Neutrophils % (manual) 9; Lymphocytes % (manual) 8 (10.0-50.0)
[2021-03-20] MEDS: NOREPINEPHRINE BITARTRATE 16 MG in SODIUM CHL 0.9% 234 ML IV SCH (13:00)
[2021-03-20] MEDS: PROPOFOL 100 ML IV SCH (13:24)
[2021-03-20] MEDS: PHENYLEPHRINE INJ 80 MG in SODIUM CHL 0.9% 242 ML IV SCH (13:25)
[2021-03-20 13:32] LABS: Total Protein 5.1 g/dL (6.4-8.2)
[2021-03-20] MEDS: DAPTOmycin 250 MG in SODIUM CHL 0.9% 50 ML IV SCH (19:15)
[2021-03-21] VITALS (73 sets, daily range): BP systolic 89–180; BP diastolic 46–121
[2021-03-21] MEDS: ACCU-CHEK COMFORT CURVE STRIP VI SCH ×3 (00:13→12:00)
[2021-03-21] MEDS: InsuLIN REG 1unit/0.01ml Soln (100units/ml) SC SCH ×3 (00:14→12:00)
[2021-03-21 05:14] LABS: White Blood Cell 13.4 10^3/uL (4.4-10.8)
[2021-03-21 05:17] LABS: Hematocrit 21.8 % (36.0-46.0); Hemoglobin 7.8 g/dL (12.2-16.2); Mean Corpuscular Hemoglobin 32.2 pg (28.0-32.0); Mean Corpuscular Hgb Conc. 35.6 g/dL (32.0-36.0); Mean Corpuscular Volume 90.4 fL (80.0-100.0); Red Blood Cells 2.41 10^6/uL (4.0-5.20)
[2021-03-21] MEDS: HYDROCORTISONE SOD SUCC 100 MG/2ML INJ VIAL IV SCH ×2 (05:30→14:04)
[2021-03-21] MEDS: PROPOFOL 100 ML IV SCH (05:31)
[2021-03-21] MEDS: fentaNYL Drip 2500mCg/250mlNS 250 ML IV SCH (05:33)
[2021-03-21 05:40] LABS: Potassium 3.1 mmol/L (3.5-5.1)
[2021-03-21 05:45] LABS: Albumin 1.2 g/dL (3.4-5.0); Calcium 6.2 mg/dL (8.5-10.1)
[2021-03-21 06:24] LABS: Red Cell Distribution Width 21.4 % (11.8-14.3)
[2021-03-21 06:26] LABS: Basophils % (manual) 0 (0.0-2.0); Blast Cells 0; Metamyelocytes % 0; Myelocytes % 0; Promyelocytes % 0; Reactive Lymphocytes 0
[2021-03-21 06:38] LABS: BUN/Creatinine Ratio 49.7
[2021-03-21] MEDS: BUDESONIDE (INHALATION) 0.5 MG/2 ML NEB NEB SCH (07:00)
[2021-03-21] MEDS: ALBUTEROL SULF 2.5 MG/0.5ML(0.5%) NEB SOLN NEB PRN (07:00)
[2021-03-21 07:26] LABS: Band Neutrophils % (manual) 4; Eosinophils % (manual) 1 (0-7); Lymphocytes % (manual) 13 (10.0-50.0); Monocytes % (manual) 4 (0-12)
[2021-03-21] MEDS: FUROSEMIDE 20 MG/2 ML VIAL IV SCH (11:15)
[2021-03-21] MEDS: CEFTAZIDIME AVIBACTAM IV SCH (11:15)
[2021-03-21] MEDS: LEVOTHYROXINE SODIUM 100 MCG/5 ML INJ IV SCH (11:15)
[2021-03-21] MEDS: D5W 5% IV SCH (11:15)
[2021-03-21] MEDS: PANTOPRAZOLE 40 MG/10 ML VIAL INJ IV SCH (11:15)
[2021-03-21] MEDS: NOREPINEPHRINE BITARTRATE 16 MG in SODIUM CHL 0.9% 234 ML IV SCH (13:56)
[2021-03-21] MEDS: POTASSIUM CHL 20MEQ/100ML 100 ML IV SCH ×2 (14:04→17:06)
[2021-03-21] MEDS ORDERED: MANNITOL 20% SOLN 100 gm/500ml 500 ML IV ONE (14:30)
[2021-03-21] MEDS: PHENYLEPHRINE INJ 80 MG in SODIUM CHL 0.9% 242 ML IV SCH (15:46)
[2021-03-21] MEDS ORDERED: LORazepam 2MG/ML-1ML VIAL IV PRN (16:30)
[2021-03-21] MEDS ORDERED: MORPHINE SULFATE INJECTION 2 MG/ML SYRG IV PRN (16:30)
[2021-03-21] MEDS ORDERED: MANNITOL 20% SOLN 100 gm/500ml 100 ML IV SCH (18:00)
== END 2021-03-21 22:30 | DRG 742 ==
LOC: SUR 06:07 → OVERFLOW 07:58 → CENTRAL 18:00 → TELE-E-ADS 02-12 14:37 → DOU IN ICU 02-15 16:32
PROVIDERS: ADMIT Obstetrics & Gynecology; ATTEND Obstetrics & Gynecology
PROC: 0D9670Z Drainage of Stomach with Drainage Device, Via Natural or Artificial Opening (ICD-10-PCS; 2021-01-31)
PROC: 06H03DZ Insertion of Intraluminal Device into Inferior Vena Cava, Percutaneous Approach (ICD-10-PCS; 2021-02-01)
PROC: 0W9J3ZZ Drainage of Pelvic Cavity, Percutaneous Approach (ICD-10-PCS; 2021-02-07)
PROC: 0W9G3ZZ Drainage of Peritoneal Cavity, Percutaneous Approach (ICD-10-PCS; 2021-02-07)
PROC: B54NZZA Ultrasonography of Left Upper Extremity Veins, Guidance (ICD-10-PCS; 2021-02-09)
PROC: XW033E5 Introduction of Remdesivir Anti-infective into Peripheral Vein, Percutaneous Approach, New Technology Group 5 (ICD-10-PCS; 2021-02-12)
PROC: XW033H5 Introduction of Tocilizumab into Peripheral Vein, Percutaneous Approach, New Technology Group 5 (ICD-10-PCS; 2021-02-15)
PROC: 5A09457 Assistance with Respiratory Ventilation, 24-96 Consecutive Hours, Continuous Positive Airway Pressure (ICD-10-PCS; 2021-02-20)
PROC: 5A1955Z Respiratory Ventilation, Greater than 96 Consecutive Hours (ICD-10-PCS; 2021-02-21)
PROC: 0BH17EZ Insertion of Endotracheal Airway into Trachea, Via Natural or Artificial Opening (ICD-10-PCS; 2021-02-21)
PROC: 02HV33Z Insertion of Infusion Device into Superior Vena Cava, Percutaneous Approach (ICD-10-PCS; 2021-02-21)
PROC: B548ZZA Ultrasonography of Superior Vena Cava, Guidance (ICD-10-PCS; 2021-02-21)
PROC: 03HY32Z Insertion of Monitoring Device into Upper Artery, Percutaneous Approach (ICD-10-PCS; 2021-02-21)
PROC: 4A133B1 Monitoring of Arterial Pressure, Peripheral, Percutaneous Approach (ICD-10-PCS; 2021-02-21)
PROC: 4A133J1 Monitoring of Arterial Pulse, Peripheral, Percutaneous Approach (ICD-10-PCS; 2021-02-21)
PROC: 0UT94ZL Resection of Uterus, Supracervical, Percutaneous Endoscopic Approach (ICD-10-PCS; principal; 2021-02-27)
PROC: 0UT24ZZ Resection of Bilateral Ovaries, Percutaneous Endoscopic Approach (ICD-10-PCS; 2021-02-27)
PROC: 0UT74ZZ Resection of Bilateral Fallopian Tubes, Percutaneous Endoscopic Approach (ICD-10-PCS; 2021-02-27)
PROC: 0USG4ZZ Reposition Vagina, Percutaneous Endoscopic Approach (ICD-10-PCS; 2021-02-27)
PROC: 05HC33Z Insertion of Infusion Device into Left Basilic Vein, Percutaneous Approach (ICD-10-PCS; 2021-02-27)
PROC: 8E0W4CZ Robotic Assisted Procedure of Trunk Region, Percutaneous Endoscopic Approach (ICD-10-PCS; 2021-02-27)
PROC: 04HY32Z Insertion of Monitoring Device into Lower Artery, Percutaneous Approach (ICD-10-PCS; 2021-03-05)
PROC: 4A133B1 Monitoring of Arterial Pressure, Peripheral, Percutaneous Approach (ICD-10-PCS; 2021-03-05)
PROC: 4A133J1 Monitoring of Arterial Pulse, Peripheral, Percutaneous Approach (ICD-10-PCS; 2021-03-05)
PROC: 30233N1 Transfusion of Nonautologous Red Blood Cells into Peripheral Vein, Percutaneous Approach (ICD-10-PCS; 2021-03-17)
DX: N81.89 Other female genital prolapse (principal); U07.1 COVID-19; J12.82 Pneumonia due to coronavirus disease 2019; R65.21 Severe sepsis with septic shock; I61.9 Nontraumatic intracerebral hemorrhage, unspecified; J96.01 Acute respiratory failure with hypoxia; K65.1 Peritoneal abscess; A41.89 Other specified sepsis; G92.8 Other toxic encephalopathy; I82.412 Acute embolism and thrombosis of left femoral vein; N39.0 Urinary tract infection, site not specified; K56.7 Ileus, unspecified; J90 Pleural effusion, not elsewhere classified; L03.311 Cellulitis of abdominal wall; E87.0 Hyperosmolality and hypernatremia; E87.1 Hypo-osmolality and hyponatremia; N17.9 Acute kidney failure, unspecified; Z99.11 Dependence on respirator [ventilator] status; I47.1 Supraventricular tachycardia; Z66 Do not resuscitate; N73.9 Female pelvic inflammatory disease, unspecified; Z79.01 Long term (current) use of anticoagulants; I10 Essential (primary) hypertension; R33.9 Retention of urine, unspecified; E03.9 Hypothyroidism, unspecified; E78.5 Hyperlipidemia, unspecified; E87.6 Hypokalemia; J43.9 Emphysema, unspecified; Z95.828 Presence of other vascular implants and grafts; E83.39 Other disorders of phosphorus metabolism; E88.09 Other disorders of plasma-protein metabolism, not elsewhere classified; D64.9 Anemia, unspecified; E66.9 Obesity, unspecified; Z68.31 Body mass index [BMI] 31.0-31.9, adult
CPT/HCPCS: 10022; 36415; 36600; 37191; 70450; 70480; 71045; 71046; 71250; 71275; 72192; 74018; 74176; 74177; 76856; 76942; 77012; 80048; 80053; 80076; 80202; 81001; 82040; 82306; 82570; 82607; 82728; 82746; 82805; 82962; 83036; 83735; 83880; 84100; 84156; 84300; 84439; 84443; 84478; 84481; 85007; 85014; 85018; 85025; 85027; 85379; 85610; 85730; 86141; 86592; 86850; 86900; 86901; 86920; 87040; 87070; 87077; 87086; 87088; 87186; 87205; 92610; 93005; 93306; 93971; 94002; 94003; 94640; 94660; 97110; 97116; 97530; 99152; A4565; C1729; C9113; G0378; J0330; J0690; J0696; J0714; J1100; J1815; J1885; J2001; J2185; J2248; J2250; J2405; J2543; J2704; J3480; J3490; J7060